=== PATIENT | female | born 1990 | race African-American/Black ===

== ENCOUNTER 2018-10-04 10:49 | Emergency (ER) | payer SELFPAY ==
--- OUTSIDE RECORDS SUMMARY | 2018-10-04 10:55 | XMS REPORT | Continuity of Care Document ---
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, third trimester HTN (<span Active Problem 12/04/2016 [facility] ID="[id number] [place] ">Confirmed</spa n>) Chronic Active Problem 12/04/2016 [place] hypertension [place] Multiple Active Problem 12/04/2016 [place] Obesity Active Problem 12/04/2016 [place] Medications Medication Details Route Status Patient Ordering Order Source Instructions Provider Date Ibuprofen 800 mg, Route: Inactive PO, Drug form: 2017 [place] TAB, TID, Dosing [place] Weight 104.545, kg, Start date: 11/30/16 17:00:00 CDT, Duration: 30 day, Stop date: 12/30/16 13:00:00 CDT Ibuprofen 800 mg, 2 tab, Inactive Route: PO, Drug 2017 [facility] form: TAB, ONCE, [place] Dosing Weight 104.545, kg, Start date: 11/30/16 16:23:00 CDT, Stop date: 11/30/16 16:23:00 CDTNotes: (Same as: Motrin) "Do Not Crush" Give with food. labetalol 100 mg 100 mg=1 tab, Active oral tablet PO, BID, 0 2016 [place] Refill(s) [place] Acetaminophen 325 1 tab, PO, Q4H, Active MG / Hydrocodone PRN Pain Score 2017 [facility] Bitartrate 10 MG 7-10, 0 [place] Oral Tablet Refill(s) Docusate Sodium 100 mg=1 cap, Active 100 MG Oral PO, BID, PRN 2017 [place] Capsule Constipation, # Land 60 cap, 2 Refill(s) acetaminophen 325 325 mg=1 tab, Active mg oral tablet PO, Q6H, PRN 2017 [place] Pain Score 1-5, Land 0 Refill(s) Benadryl 25 mg, 1 cap, No Longer Route: PO, Drug Active 2016 [facility] form: CAP, TID, [place] Dosing Weight 104.545, kg, PRN Itching, Start date: 11/29/16 18:50:00 CDT, Duration: 30 day, Stop date: 12/29/16 18:49:00 CDTNotes: (Same as: Benadryl) 1 tab, Route: No Longer Multivitamins oral PO, Drug Form: Active 2016 [place] tablet TAB, Dosing [place] Weight 104.545, kg, Daily, Start date: 11/29/16 9:00:00 CDT, Duration: 30 day, Stop date: 12/28/16 9:00:00 CDT Saline Flush 0.9% 10 ml, Route: No Longer IVP, Drug Form: Active 2016 [place] INJ, Dosing [place] Weight 104.545, kg, Q12H, Start date: 11/28/16 21:00:00 CDT, Duration: 30 day, Stop date: 12/28/16 9:00:00 CDTNotes: (Same as: BD Posiflush) Morphine 2 mg, 0.5 mL, No Longer Route: IVP, Drug Active 2016 [facility] form: SOLN, Q4H, [place] Dosing Weight 104.545, kg, PRN Pain Score 7-10, Start date: 11/28/16 17:25:00 CDT, Stop date: 12/28/16 17:24:00 CDTNotes: (Same as:MORPhine Sulfate) Ibuprofen 600 mg, 1 tab, No Longer Route: PO, Drug Active 2016 [place] form: TAB, Q6H, [place] Dosing Weight 104.545, kg, Start date: 11/28/16 12:00:00 CDT, Duration: 30 day, Stop date: 12/28/16 6:00:00 CDTNotes: (Same as: Motrin) "Do Not Crush" Take with food. 0.5 ML Bordetella 0.5 mL, Route: No Longer pertussis IM, Drug Form: Active 2016 [place] filamentous SUSP, Dosing [place] hemagglutinin Weight 104.545, vaccine, kg, ONCALL, inactivated 0.01 Start date: MG/ML / Bordetella 11/28/16 pertussis fimbriae 10:00:00 CDT, 2/3 vaccine, Duration: 1 inactivated 0.01 doses or MG/ML / Bordetella timesNotes: pertussis (Tdap ) For pertactin vaccine, Adolecent and inactivated 0.006 Adult use For IM MG/ML / Bordetella Use. Same as: pertussis toxoid Adacel (Tdap) vacci M-M-R II 0.5 mL, Route: No Longer SUB-Q, Drug Active 2016 [place] Form: PDR/INJ, [place] Dosing Weight 104.545, kg, ONCALL, Start date: 11/28/16 10:00:00 CDT, Duration: 1 doses or timesNotes: (Same as: M-M-R II) ([id number] ubella virus vaccine 0.5 ml INJ VL) WASTE: F/P - Red; E -Red GIVE PRIOR TO DISCHARGE Naloxone 0.4 mg, 1 mL, No Longer Route: IVP, Drug Active 2016 [place] form: INJ, Land ONCALL, Dosing Weight 104.545, kg, Start date: 11/28/16 10:00:00 CDT, Duration: 24 hr, Stop date: 11/29/16 9:59:00 CDTNotes: Same as Narcan Oxycodone 10 mg, 2 tab, No Longer Hydrochloride 5 MG Route: PO, Drug Active 2016 [place] Oral Tablet form: TAB, Q4H, Land Dosing Weight 104.545, kg, PRN Pain Score 7-10, Start date: 11/28/16 9:30:00 CDT, Duration: 30 day, Stop date: 12/28/16 9:29:00 CDTNotes: (Same as: Roxicodone) Ketorolac 30 mg, 1 mL, No Longer Route: IVP, Drug Active 2016 [place] form: INJ, Q6H, [place] Dosing Weight 104.545, kg, PRN Pain Score 4-6, Start date: 11/28/16 9:30:00 CDT, Duration: 24 hr, Stop date: 11/29/16 9:29:00 CDTNotes: (Same as:Toradol) IV bolus must be given >15 seconds. Give IM administration slowly and deeply into the muscle. Not for use > 4 days MEDICATION WASTE Product Size: 30 mg Product Wasted: ___ mg Nalbuphine 2 mg, 0.2 mL, No Longer Route: IVP, Drug Active 2016 [place] form: INJ, Q2H, [place] Dosing Weight 104.545, kg, PRN Itching, Start date: 11/28/16 9:30:00 CDT, Duration: 5 doses or times, Stop date: Limited # of timesNotes: (Same As: Nubain) Naloxone 0.1 mg, 0.25 mL, No Longer Route: SUB-Q, Active 2016 [place] Drug form: INJ, [place] Q6H, Dosing Weight 104.545, kg, PRN Itching, Start date: 11/28/16 9:30:00 CDT, Duration: 24 hr, Stop date: 11/29/16 9:29:00 CDTNotes: Same as Narcan Sodium Chloride 1,000 mL, Rate: No Longer 0.154 MEQ/ML 17 microgram/hr, Active 2016 [place] Injectable Route: IV, [place] Solution Dosing Weight 104.545 kg, Total Volume: 1,001 mL, PRN itching, Start date: 11/28/16 9:30:00 CDT, Duration: 30 day, Stop date: 12/28/16 9:29:00 CDTNotes: Same as Narcan Diphenhydramine 12.5 mg, 5 mL, No Longer Route: PO, Drug Active 2016 [place] form: LIQ, Q6H, Land Dosing Weight 104.545, kg, PRN Itching, Start date: 11/28/16 9:30:00 CDT, Duration: 30 day, Stop date: 12/28/16 9:29:00 CDTNotes: (Same as: Benadryl) Ondansetron 4 mg, 2 mL, No Longer Route: IVP, Drug Active 2017 [place] form: INJ, Q6H, [place] Dosing Weight 104.545, kg, PRN Nausea & Vomiting, Start date: 11/28/16 9:30:00 CDT, Duration: 24 hr, Stop date: 11/29/16 9:29:00 CDTNotes: (Same as: Zofran) MEDICATION WASTE Product Size: 4 mg Product Wasted: ___ mg Acetaminophen 325 1 tab, Route: No Longer MG / Hydrocodone PO, Drug Form: Active 2017 [facility] Bitartrate 5 MG TAB, Dosing [place] Oral Tablet Weight 104.545, kg, Q4H, PRN Pain Score 4-6, Start date: 11/28/16 9:11:00 CDT, Duration: 30 day, Stop date: 12/28/16 9:10:00 CDTNotes: (Same as: Purcell 325/5) Do not exceed 4gm/day of acetaminophen. Acetaminophen 325 1 tab, Route: No Longer MG / Hydrocodone PO, Drug Form: Active 2016 [place] Bitartrate 10 MG TAB, Dosing [place] Oral Tablet Weight 104.545, kg, Q4H, PRN Pain Score 7-10, Start date: 11/28/16 9:11:00 CDT, Duration: 30 day, Stop date: 12/28/16 9:10:00 CDTNotes: Do not exceed 4gm/day of acetaminophen. (Same as: Purcell 325/10) Saline Flush 0.9% 10 ml, Route: No Longer IVP, Drug Form: Active 2016 [place] INJ, Dosing [place] Weight 104.545, kg, PRN, PRN Line Flush, Start date: 11/28/16 9:11:00 CDT, Duration: 30 day, Stop date: 12/28/16 9:10:00 CDTNotes: (Same as: BD Posiflush) lanolin topical 1 appl, Route: No Longer cream TOP, PRN, Drug Active 2016 [place] form: OINT, PRN [place] Other -See Comment, Start date: 11/28/16 9:11:00 CDT, Duration: 30 day, Stop date: 12/28/16 9:10:00 CDTNotes: (Same as:Lanolin) Simethicone 160 mg, 2 tab, No Longer Route: PO, Drug Active 2016 [place] form: [place], [place] Q8H, Dosing Weight 104.545, kg, PRN Gas, Start date: 11/28/16 9:11:00 CDT, Duration: 30 day, Stop date: 12/28/16 9:10:00 CDTNotes: (Same as: Mylicon) Acetaminophen 650 mg, 2 tab, No Longer Route: PO, Drug Active 2016 [place] form: TAB, Q4H, [place] Dosing Weight 104.545, kg, PRN Other -See Comment, Start date: 11/28/16 9:11:00 CDT, Duration: 30 day, Stop date: 12/28/16 9:10:00 CDTNotes: Do not exceed 4 gm/day. (Same as: Tylenol) zolpidem 5 mg, 1 tab, No Longer Route: PO, Drug Active 2016 [place] form: TAB, Land Bedtime, Dosing Weight 104.545, kg, PRN Insomnia, Start date: 11/28/16 9:11:00 CDT, Duration: 30 day, Stop date: 12/28/16 9:10:00 CDTNotes: (Same As: Pranavien) Oxytocin 30 unit, 500 mL, No Longer Rate: 42 ml/hr, Active 2016 [place] Infuse over: [place] 11.9 hr, Dosing Weight 104.545, kg, Route: IV, Total Volume: 500 mL, Start date: 11/28/16 9:11:00 CDT, Duration: 2 day, Stop date: 11/30/16 9:10:00 CDT, Replace Every: 11.9 hr Lactated Ringers 1,000 mL, Rate: No Longer 1,000 mL 100 ml/hr, Active 2016 [place] Infuse over: 10 [place] hr, Route: IV, Dosing Weight 104.545 kg, Total Volume: 1,000, Start date: 11/28/16 9:11:00 CDT, Duration: 30 day, Stop date: 12/28/16 9:10:00 CDT Bisacodyl 10 mg, 1 supp, No Longer Route: MD, Drug Active 2016 [place] form: SUPP, PRN, [facility] Dosing Weight 104.545, kg, PRN Other -See Comment, Start date: 11/28/16 9:11:00 CDT, Duration: 30 day, Stop date: 12/28/16 9:10:00 CDTNotes: (Same As: Dulcolax, Bisco-Lax) Docusate 100 mg, 1 cap, No Longer Route: PO, Drug Active 2016 [place] form: CAP, BID, [place] Dosing Weight 104.545, kg, PRN Constipation, Start date: 11/28/16 9:11:00 CDT, Duration: 30 day, Stop date: 12/28/16 9:10:00 CDTNotes: (Same as: Colace) (Do Not Crush) ondansetron (ANES) Route: IV, Drug Inactive form: INJ, ONCE, 2016 [place] Stop date: 11/28/16 9:09:00 CDT morphine Sulfate Route: Inactive (ANES) INTRATHECAL, 2016 [place] Drug form: INJ, [place] ONCE, Stop date: 11/28/16 9:09:00 CDT clindamycin (ANES) Route: IV, Drug Inactive form: INJ, ONCE, 2016 [place] Stop date: 11/28/16 9:09:00 CDT bupivacaine (ANES) Route: Inactive INTRATHECAL, 2016 [place] Drug Form: INJ, [place] ONCE, Stop date: 11/28/16 9:09:00 CDT fentaNYL (ANES) Route: Inactive INTRATHECAL, 2016 [place] Drug form: INJ, [place] ONCE, Stop date: 11/28/16 9:09:00 CDT gentamicin (ANES) Route: IV, Drug Inactive form: INJ, ONCE, 2016 [place] Stop date: 11/28/16 9:09:00 CDT oxytocin (ANES) Route: IV, Drug Inactive (ANES) form: SOLN, 2016 [place] Start date: [facility] 11/28/16 8:30:00 CDT, Stop date: 11/28/16 9:30:00 CDT LR 1000 mL INJ Route: IV, Total Inactive (ANES) Volume: 1,000, 2017 [place] Start date: [place] 11/28/16 7:53:00 CDT, Stop date: 11/28/16 8:53:00 CDT Famotidine 20 mg, Route: Inactive IVP, ONCE, 2016 [place] Dosing Weight [place] 104.545, kg, Start date: 11/28/16 6:55:00 CDT, Duration: 1 doses or times, Stop date: 11/28/16 6:55:00 CDT Calcium Gluconate 1 gm, Route: No Longer IVP, Drug form: Active 2016 [place] INJ, ONCE, [facility] Dosing Weight 104.545, kg, PRN Other -See Comment, Start date: 11/27/16 14:14:00 CDTNotes: WASTE: F/P - Sink; E - Municipal Trash Bin Magnesium Sulfate 500 mL, Rate: 50 No Longer ml/hr, Infuse Active 2016 [place] over: 10 hr, [facility] Route: IV, Dosing Weight 104.545 kg, Total Volume: 500, Start date: 11/27/16 14:14:00 CDT, Duration: 30 day, Stop date: 12/27/16 14:13:00 CDTNotes: (Same as: MgSO4) WASTE: F/P - Sink; E - Municipal Trash Bin Gentamicin Sulfate 150 mg, 3.75 mL, No Longer (HALFWAY) Route: IVPB, Active 2016 [place] ONCALL, Dosing [place] Weight 74.638, kg, Start date: 11/27/16 14:00:00 CDT, Duration: 1 doses or timesNotes: TIME CRITICAL MEDICATION (Same as Garamycin) Clindamycin 900 mg, 50 mL, No Longer Route: IVPB, Active 2016 [place] Drug form: INJ, [place] ONCALL, Dosing Weight 104.545, kg, Start date: 11/27/16 14:00:00 CDT, Duration: 1 doses or times, Stop date: 11/28/16 14:00:00 CDT, ABX Indication: Surgical Prophylaxis Methylergonovine 0.2 mg, 1 mL, No Longer Route: IM, Drug Active 2016 [place] form: INJ, [place] ONCALL, Dosing Weight 104.545, kg, Start date: 11/27/16 14:00:00 CDT, Duration: 30 day, Stop date: 12/27/16 13:59:00 CDTNotes: (Same as:Methergine) Carboprost 250 microgram, 1 No Longer 07/ MH mL, Route: IM, Active 2016 [place] Drug form: INJ, [place] ONCALL, Dosing Weight 104.545, kg, Start date: 11/27/16 14:00:00 CDT, Duration: 30 day, Stop date: 12/27/16 13:59:00 CDTNotes: (Same As: Hemabate) Terbutaline 0.25 mg, 0.25 No Longer MH mL, Route: Active 2017 [place] SUB-Q, Drug [place] form: INJ, ONCALL, Dosing Weight 104.545, kg, PRN Other -See Comment, Start date: 11/27/16 14:00:00 CDT, Duration: 1 doses or times, Stop date: Limited # of timesNotes: DO NOT USE IN [employer] AREA (Same As: Brethine) Citric Acid / 30 mL, Route: No Longer sodium citrate PO, Drug Form: Active 2016 [place] SOLN, Dosing [place] Weight 104.545, kg, ONCE, Start date: 11/27/16 14:00:00 CDT, Duration: 1 doses or times, Stop date: 11/27/16 14:00:00 CDTNotes: (Same As: Bicitra) Misoprostol 1,000 microgram, No Longer MH 5 tab, Route: Active 2017 [place] MD, Drug form: [place] TAB, ONCALL, Dosing Weight 104.545, kg, Start date: 11/27/16 14:00:00 CDT, Duration: 30 day, Stop date: 12/27/16 13:59:00 CDTNotes: (Same as:Cytotec) Take with food Oxytocin 30 unit, 500 mL, No Longer 07 MH Rate: 42 ml/hr, Active 2017 [place] Infuse over: [place] 11.9 hr, Dosing Weight 104.545, kg, Route: IV, Total Volume: 500 mL, Start date: 11/27/16 14:00:00 CDT, Duration: 1 doses or times, Stop date: 11/28/16 1:53:00 CDT, Replace Every: 11.9 hr Ondansetron 4 mg, 2 mL, No Longer Route: IVP, Drug Active 2016 [place] form: INJ, Q8H, [place] Dosing Weight 104.545, kg, PRN Nausea & Vomiting, Start date: 11/27/16 14:00:00 CDT, Duration: 30 day, Stop date: 12/27/16 13:59:00 CDTNotes: (Same as: Carmencita) MEDICATION WASTE Product Size: 4 mg Product Wasted: ___ mg Morphine 2 mg, 0.5 mL, No Longer Route: IVP, Drug Active 2016 [place] form: SOLN, Q2H, [place] Dosing Weight 104.545, kg, PRN Pain Score 7-10, Start date: 11/27/16 14:00:00 CDT, Duration: 30 day, Stop date: 12/27/16 13:59:00 CDTNotes: (Same as:MORPhine Sulfate) Metoclopramide 10 mg, 2 mL, No Longer Route: IVP, Drug Active 2016 [place] form: INJ, Q6H, [place] Dosing Weight 104.545, kg, PRN Nausea & Vomiting, Start date: 11/27/16 14:00:00 CDT, Duration: 30 day, Stop date: 12/27/16 13:59:00 CDTNotes: (Same as: Reglan) Calcium Chloride 1,000 mL, 1,000 No Longer 0.0014 MEQ/ML / ml/hr, Infuse Active 2016 [place] Potassium Chloride Over: 1 hr, [place] 0.004 MEQ/ML / Route: IV, Sodium Chloride 1,000, Drug 0.103 MEQ/ML / form: INJ, ONCE, Sodium Lactate Dosing Weight 0.028 MEQ/ML 104.545 kg, Injectable Start date: Solution 11/27/16 14:00:00 CDT, Stop date: 11/27/16 14:00:00 CDT Stadol 2 mg, 1 mL, No Longer Route: IVP, Drug Active 2016 [place] form: INJ, Q4H, [place] Dosing Weight 104.545, kg, PRN Pain Score 6-10, Start date: 11/27/16 3:52:00 CDT, Duration: 30 day, Stop date: 12/27/16 3:51:00 CDTNotes: (Same As: Stadol) MEDICATION WASTE Product Size: 2 mg Product Wasted: ___ mg Clindamycin 900 mg, 50 mL, No Longer Route: IVPB, Active 2016 [place] Drug form: INJ, [place] [id number], Dosing Weight 104.545, kg, Start date: 11/26/16 23:00:00 CDT, Duration: 3 day, Stop date: 11/29/16 15:00:00 CDT, GBS unknown, ABX Indication: Other (specify in Comments) Stadol 2 mg, 1 mL, Inactive Route: IV, Drug 2016 [place] form: INJ, ONCE, [place] Dosing Weight 104.545, kg, Start date: 11/26/16 22:48:00 CDT, Stop date: 11/26/16 22:48:00 CDTNotes: (Same As: Stadol) MEDICATION WASTE Product Size: 2 mg Product Wasted: ___ mg Phenergan 25 mg, 1 tab, No Longer Route: PO, Drug Active 2016 [place] form: TAB, Q4H, [place] Dosing Weight 104.545, kg, PRN Nausea & Vomiting, Priority: NOW, Start date: 11/26/16 19:06:00 CDT, Duration: 30 day, Stop date: 12/26/16 19:05:00 CDTNotes: (Same as: Phenergan) Labetalol 100 mg, 1 tab, No Longer Route: PO, Drug Active 2016 [place] form: TAB, BID, [place] Dosing Weight 104.545, kg, Start date: 11/26/16 17:00:00 CDT, Stop date: 12/26/16 9:00:00 CDTNotes: With food. (Same as:Trandate, Normodyne) betamethasone 12 mg, 2 mL, No Longer Route: IM, Drug Active 2016 [place] form: INJ, Q24H, [place] Dosing Weight 104.545, kg, Start date: 11/26/16 15:00:00 CDT, Duration: 2 doses or times, Stop date: 11/27/16 15:00:00 CDTNotes: (betamethasone acetate-sodium phosphate 6 mg/ml INJ) (Same As: Celestone Soluspan) Tylenol 650 mg, 2 tab, No Longer Route: PO, Drug Active 2016 [place] form: TAB, Q6H, [place] Dosing Weight 104.545, kg, PRN Pain Score 1-5, Start date: 11/26/16 14:50:00 CDT, Duration: 30 day, Stop date: 12/26/16 14:49:00 CDTNotes: Do not exceed 4 gm/day. (Same as: Tylenol) Zofran 4 mg, 2 mL, No Longer Route: IVP, Drug Active 2016 [place] form: INJ, Q8H, [place] Dosing Weight 104.545, kg, PRN Nausea, Start date: 11/26/16 14:49:00 CDT, Duration: 30 day, Stop date: 12/26/16 14:48:00 CDTNotes: (Same as: Zofran) MEDICATION WASTE Product Size: 4 mg Product Wasted: ___ mg Lactated Ringers 1,000 mL, Rate: No Longer 1,000 mL Titrate, Dosing Active 2016 [place] Weight 104.545, [place] kg, Route: IV, Total Volume: 1,000, Start Date: 11/26/16 14:48:00 CDT, Duration: 30 day, Stop date: 12/26/16 14:47:00 CDT, Replace Every: 24 hr Calcium Gluconate 1 gm, Route: No Longer IVP, Drug form: Active 2017 [place] INJ, ONCE, [place] Dosing Weight 104.545, kg, PRN Other -See Comment, Start date: 11/26/16 14:48:00 CDTNotes: WASTE: F/P - Sink; E - Municipal Trash Bin magnesium sulfate 4 gm, 100 mL, Inactive 4 gm / 100 mL Route: IVPB, 2017 [place] solution Drug form: INJ, [place] ONCE, Dosing Weight 104.545, kg, Loading dose; Dilute in 100 ml; Infuse over 30 minutes @ 200 ml/hr, Start date: 11/26/16 14:48:00 CDT, Duration: 1 doses or times, Stop date: 11/26/16 14:48:00 CDTNotes: WASTE: F/P - Sink; E - Municipal Trash Bin Magnesium Sulfate 500 mL, Rate: 50 No Longer ml/hr, Infuse Active 2016 [place] over: 10 hr, [place] Route: IV, Dosing Weight 104.545 kg, Total Volume: 500, Start date: 11/26/16 14:48:00 CDT, Duration: 30 day, Stop date: 12/26/16 14:47:00 CDTNotes: (Same as: MgSO4) WASTE: F/P - Sink; E - Municipal Trash Bin Calcium Chloride 1,000 mL, Rate: No Longer 0.0014 MEQ/ML / 125 ml/hr, Active 2016 [place] Potassium Chloride Infuse over: 8 [place] 0.004 MEQ/ML / hr, Route: IV, Sodium Chloride Dosing Weight 0.103 MEQ/ML / 104.545 kg, Sodium Lactate Total Volume: 0.028 MEQ/ML 1,000, Start Injectable date: 11/26/16 Solution 13:23:00 CDT, Duration: 30 day, Stop date: 12/26/16 13:22:00 CDT Tylenol PO, 0 Refill(s) No Longer Active 2016 [place] Calcium Chloride 1,000 mL, Rate: Inactive 0.0014 MEQ/ML / 125 ml/hr, 2017 [place] Potassium Chloride Infuse over: 8 [place] 0.004 MEQ/ML / hr, Route: IV, Sodium Chloride Dosing Weight 0.103 MEQ/ML / 99.545 kg, Total Sodium Lactate Volume: 1,000, 0.028 MEQ/ML Start date: Injectable 10/06/16 2:45:00 Solution CDT, Duration: 30 day, Stop date: 11/05/16 2:44:00 CDT Zofran 4 mg, 2 mL, Inactive Route: IVP, Drug 2016 [place] form: INJ, ONCE, [place] Dosing Weight 99.545, kg, Start date: 10/06/16 2:44:00 CDT, Stop date: 10/06/16 2:44:00 CDTNotes: (Same as: Carmencita) MEDICATION WASTE Product Size: 4 mg Product Wasted: ___ mg Allergies, Adverse Reactions, Alerts Substance Category Reaction Severity Reaction Status Date Comments Source type Reported amoxicillin Assertion Drug Active MH allergy [place] ibuprofen Assertion Itching Mild Drug Active allergy [place] Immunizations Immunization Date Given Site Status Last Updated Comments Source Results Order Name Results Value Reference Date Interpretation Comments Source Range CHEM PANEL Magnesium Lvl 3.8 mg/dL 1.8 - 2.4 11/29 Result Comment: [place] Critical [facility] Result(s) called to Jeffery SOLIS at 11/29/2016 07:13 by TROY. Read back OK. HEMATOLOGY Hct 23.9 % 36.0 - 11/29 MH 48.0 [place] HEMATOLOGY Hgb 7.4 g/dL 12.0 - 11/29 MH 16.0 [place] CHEM PANEL Mg Therap 4.1 mg/dL 4.5 - 7.5 11/29 MH (LD) [place] CHEM PANEL Magnesium Lvl 5.0 mg/dL 1.8 - 2.4 11/28 Result Comment: [place] Critical [facility] Result(s) called to Carmen Jimenez RN at 11/28/2016 14:52 by_LD. Read back OK. CHEM PANEL Mg Therap 4.8 mg/dL 4.5 - 7.5 11/28 MH (LD) [place] IMMUNOLOGY HIV. Negative Negative 11/28 /2016 [place] *NA* [place] (11/27/16 11:54 PM) IMMUNOLOGY Treponemal Non Reactive Non 11/28 MH Scr Reactive /2016 [place] *NA* [place] (11/27/16 11:54 PM) BLOOD BANK Antibody Scrn Negative 11/27 RESULTS /2016 [place] (11/27/16 3:39 PM) Land BLOOD BANK ABO/Rh B POS 11/27 RESULTS /2016 [place] IMMUNOLOGY Treponemal Non Reactive Non 11/27 MH Scr Reactive /2016 [place] *NA* [place] (11/27/16 3:39 PM) IMMUNOLOGY Hep Bs Ag Negative Negative 11/27 /2016 [place] *NA* [place] (11/27/16 3:39 PM) URINE CHEM U Creatinine 179.00 11/27 MH mg/dL /2016 [place] URINE CHEM U Prot/Creat 0.3 11/27 [place] URINE CHEM U Protein 53.9 mg/dL 11/27 [place] CHEM PANEL Magnesium Lvl 5.0 mg/dL 1.8 - 2.4 11/27 Result Comment: [place] Critical [place] Result(s) called to lindsay montes de oca RN at 11/27/2016 07:24 by HF. Read back OK. CHEM PANEL Alk Phos 92 unit/L 39 - 136 11/27 [place] CHEM PANEL AST 15 unit/L 0 - 37 11/27 [place] CHEM PANEL Bili Total 0.4 mg/dL 0.2 - 1.3 11/27 [place] CHEM PANEL A/G Ratio 0.5 0.7 - 1.6 11/27 [place] CHEM PANEL ALT 14 unit/L 0 - 65 11/27 [place] CHEM PANEL eGFR 142 11/27 Result Comment: The eGFR is calculated using the CKD-EPI formula. In most young, healthy individuals the eGFR will be >90 mL/ min/1.73m2. The eGFR declines with age. An eGFR of 60-89 may be normal in mL/min/1.73 some populations, particularly the elderly, for whom the CKD-EPI formula has not been extensively validated. Use of the eGFR is not recommended in the following populations: [place] m2 [place] Individuals with unstable creatinine concentrations, including patients and those with serious co-morbid conditions. Patients with extremes in muscle mass or diet. The data above are obtained from the National Kidney Disease Education Program (NKDEP) which additionally recommends that when the eGFR is used in patients with extremes of body mass index for purposes of drug dosing, the eGFR should be multiplied by the estimated BMI. CHEM PANEL Total Protein 7.2 g/dL 6.4 - 8.4 11/27 [place] CHEM PANEL Albumin Lvl 2.5 g/dL 3.5 - 5.0 11/27 [place] CHEM PANEL Globulin 4.7 g/dL 2.7 - 4.2 11/27 [place] CHEM PANEL Calcium Lvl 8.1 mg/dL 8.5 - 10.5 11/27 [place] CHEM PANEL B/C Ratio 12 6 - 25 11/27 [place] CHEM PANEL AGAP 13.0 meq/L 10.0 - 07 MH 20.0 [place] CHEM PANEL Chloride Lvl 105 meq/L 95 - 109 11/27 [place] CHEM PANEL CO2 22 meq/L 24 - 32 07/ [place] CHEM PANEL Potassium Lvl 4.0 meq/L 3.5 - 5.1 / [place] CHEM PANEL Creatinine 0.65 mg/dL 0.50 - 07 MH Lvl 1.40 /2016 [place] CHEM PANEL Sodium Lvl 136 meq/L 135 - 145 07/ [place] CHEM PANEL Glucose Lvl 129 mg/dL 70 - 99 11/27 [place] CHEM PANEL BUN 8 mg/dL 7 - 22 11/27 [place] HEMATOLOGY MPV 11.4 fL 7.4 - 10.4 11/27 [place] HEMATOLOGY MCH 21.9 pg 27.0 - 11/27 MH 31.0 [place] HEMATOLOGY Platelet 285 K/CMM 133 - 450 11/27 [place] HEMATOLOGY RDW 17.9 % 11.5 - 07 MH 14.5 /2016 [place] HEMATOLOGY MCHC 31.2 g/dL 32.0 - 07 MH 36.0 [place] HEMATOLOGY WBC 7.2 K/CMM 3.7 - 10.4 11/27 [place] HEMATOLOGY MCV 70.1 fL 80.0 - 11/27 MH 98.0 /2016 [place] HEMATOLOGY Hct 31.2 % 36.0 - 11/27 MH 48.0 [place] HEMATOLOGY Hgb 9.7 g/dL 12.0 - 11/27 MH 16.0 [place] HEMATOLOGY RBC 4.45 M/CMM 4.20 - 07 MH 5.40 /2016 [place] HEMATOLOGY PTT 29.2 s 22.9 - 11/27 MH 35.8 /2016 [place] HEMATOLOGY INR 1.14 0.85 - 11/27 MH 1.17 [place] [facility]AT[facility] PT 14.8 s 12.0 - 11/27 MH 14.7 [place] [facility]EMAT[facility] Basophils # 0.0 K/CMM 0.0 - 0.2 11/27 [place] [facility]EMAT[facility] Eosinophils # 0.0 K/CMM 0.0 - 0.5 11/27 [place] [facility]EMAT[facility] Monocytes # 0.2 K/CMM 0.0 - 0.8 11/27 [place] [facility]EMAT[facility] Lymphocytes # 0.8 K/CMM 1.0 - 5.5 11/27 [place] HEMAT[facility] Segs-Bands # 6.2 K/CMM 1.5 - 8.1 11/27 [place] [facility]EMAT[facility] Basophils 0.2 % 0.0 - 1.0 11/27 [place] [facility]EMAT[facility] Lymphocytes 10.7 % 20.0 - 11/27 MH 40.0 [place] HEMAT[facility] Segs 86.0 % 45.0 - 11/27 MH 75.0 [place] HEMATOLOG[facility] Monocytes 3.1 % 2.0 - 12.0 11/27 [place] HEMATOLOG[facility] Eosinophils 0.0 % 0.0 - 4.0 11/27 [place] CHEM PANEL Mg Therap 4.4 mg/dL 4.5 - 7.5 11/27 (LD) [place] CHEM PANEL eGFR 148 11/26 Result Comment: The eGFR is calculated using the CKD-EPI formula. In most young, healthy individuals the eGFR will be >90 mL/ min/1.73m2. The eGFR declines with age. An eGFR of 60-89 may be normal in mL/min/1.73 some populations, particularly the elderly, for whom the CKD-EPI formula has not been extensively validated. Use of the eGFR is not recommended in the following populations: [place] Individuals with unstable creatinine concentrations, including patients and those with serious co-morbid conditions. Patients with extremes in muscle mass or diet. The data above are obtained from the National Kid[employer] Disease Education Program (NKDEP) which additionally recommends that when the eGFR is used in patients with extremes of body mass index for purposes of drug dosing, the eGFR should be multiplied by the estimated BMI. CHEM PANEL ALT 14 unit/L 0 - 65 11/26 [place] CHEM PANEL AST 15 unit/L 0 - 37 11/26 [place] CHEM PANEL Albumin Lvl 2.5 g/dL 3.5 - 5.0 11/26 [place] CHEM PANEL Bili Total 0.4 mg/dL 0.2 - 1.3 11/26 [place] CHEM PANEL Alk Phos 90 unit/L 39 - 136 11/26 [place] CHEM PANEL Potassium Lvl 3.7 meq/L 3.5 - 5.1 11/26 [place] CHEM PANEL Glucose Lvl 74 mg/dL 70 - 99 11/26 [place] CHEM PANEL Total Protein 7.1 g/dL 6.4 - 8.4 11/26 [place] CHEM PANEL Calcium Lvl 8.5 mg/dL 8.5 - 10.5 11/26 [place] CHEM PANEL CO2 24 meq/L 24 - 32 11/26 [place] CHEM PANEL Chloride Lvl 108 meq/L 95 - 109 11/26 [place] CHEM PANEL BUN 6 mg/dL 7 - 22 11/26 [place] CHEM PANEL Creatinine 0.57 mg/dL 0.50 - 11/26 MH Lvl 1.40 [place] CHEM PANEL Sodium Lvl 139 meq/L 135 - 145 11/26 [place] CHEM PANEL A/G Ratio 0.5 0.7 - 1.6 11/26 [place] CHEM PANEL Globulin 4.6 g/dL 2.7 - 4.2 11/26 [place] CHEM PANEL AGAP 10.7 meq/L 10.0 - 11/26 MH 20.0 [place] CHEM PANEL B/C Ratio 11 6 - 25 11/26 [place] HEMATOLOGY Basophils 0.3 % 0.0 - 1.0 11/26 [place] HEMATOLOGY Eosinophils 1.2 % 0.0 - 4.0 11/26 [place] HEMATOLOGY Lymphocytes # 1.1 K/CMM 1.0 - 5.5 11/26 [place] HEMATOLOGY Segs-Bands # 5.4 K/CMM 1.5 - 8.1 11/26 [place] HEMATOLOGY Large Plt slight 11/26 [place] HEMATOLOGY Hypochrom 1+ None Seen 11/26 [place] (11/26/16 1:32 PM) [place] HEMATOLOGY Microcyte 2+ None Seen 11/26 [place] *ABN* [place] (11/26/16 1:32 PM) HEMATOLOGY Eosinophils # 0.1 K/CMM 0.0 - 0.5 11/26 [place] HEMATOLOGY Basophils # 0.0 K/CMM 0.0 - 0.2 11/26 /2016 [place] HEMATOLOGY Monocytes # 0.5 K/CMM 0.0 - 0.8 11/26 /2016 [place] HEMATOLOGY Lymphocytes 16.1 % 20.0 - 11/26 MH 40.0 /2016 [place] HEMATOLOGY Monocytes 6.5 % 2.0 - 12.0 11/26 /2016 [place] HEMATOLOGY Segs 75.9 % 45.0 - 11/26 MH 75.0 /2016 [place] HEMATOLOGY PTT 30.1 s 22.9 - 11/26 MH 35.8 /2016 [place] HEMATOLOGY PT 14.5 s 12.0 - 11/26 MH 14.7 /2016 [place] HEMATOLOGY INR 1.11 0.85 - 11/26 MH 1.17 /2016 [place] HEMATOLOGY MPV 11.3 fL 7.4 - 10.4 11/26 [place] HEMATOLOGY MCV 70.0 fL 80.0 - 11/26 MH 98.0 /2016 [place] HEMATOLOGY Platelet 257 K/CMM 133 - 450 11/26 [place] HEMATOLOGY MCH 22.1 pg 27.0 - 11/26 MH 31.0 /2016 [place] HEMATOLOGY RDW 18.1 % 11.5 - 11/26 MH 14.5 /2016 [place] HEMATOLOGY MCHC 31.6 g/dL 32.0 - 11/26 MH 36.0 /2016 [place] HEMATOLOGY Hct 31.6 % 36.0 - 11/26 MH 48.0 /2016 [place] HEMATOLOGY Hgb 10.0 g/dL 12.0 - 11/26 MH 16.0 [place] HEMATOLOGY RBC 4.51 M/CMM 4.20 - 11/26 MH 5.40 /2016 [place] HEMATOLOGY WBC 7.1 K/CMM 3.7 - 10.4 11/26 [place] URINE AND UA <=1.0 mg/dL 0.1 - 1.0 11/26 [facility] Urobilinogen /2016 [place] URINE AND UA Spec Grav 1.020 <=1.030 11/26 [facility] [place] URINE AND UA RBC null 0 - 2 11/26 [facility] /2017 [place] URINE AND UA Bacteria Occasional None Seen 11/26 [facility] /HPF /HPF /2016 [place] URINE AND UA Mucus Few /LPF None Seen 11/26 [facility] /LPF /2016 [place] URINE AND UA Leuk Est Trace Negative 11/26 [place] *ABN* [place] (11/26/16 1:03 PM) URINE AND UA WBC 4 /HPF 0 - 5 11/26 [place] URINE AND UA Sq Epi Moderate Few /LPF 11/26 [facility] /LPF /2016 [place] URINE AND UA Nitrite Negative Negative 11/26 [place] (11/26/16 1:03 PM) [place] URINE AND UA Blood Negative Negative 11/26 [place] (11/26/16 1:03 PM) [place] URINE AND UA Bili Negative Negative 11/26 [place] *NA* [place] (11/26/16 1:03 PM) URINE AND UA Glucose Negative Negative 11/26 [facility] mg/dL mg/dL [place] URINE AND UA Color Yellow Yellow 11/26 [place] *NA* [facility] (11/26/16 1:03 PM) URINE AND UA Turbidity Slight Clear 11/26 [place] *ABN* [facility] (11/26/16 1:03 PM) URINE AND UA Protein Negative Negative 11/26 [facility] mg/dL mg/dL [place] URINE AND UA pH 6.0 5.0 - 8.0 11/26 [place] URINE AND UA Ketones Negative Negative 11/26 [facility] mg/dL mg/dL [place] Chest 1view Chest 1view Single view chest 11/26 DX DX - [place] Clinical history: - 33 weeks , SOB x 2 weeks. Read by: Ciaran Starks MD Dictated Date/time: 11/26/16 14:19 Electronically Signed by: Ciaran Starks MD 11/26/16 14:20 FINAL REPORT : 1990. Technique: Portable AP chest x-ray. Comparison: None. Findings: Support tubings: None. Heart size: Normal. Lungs: No acute consolidation. Pleura: No pleural effusion. Musculoskeletal: No acute abnormality. . Partially visualized gravid uterus. Impression: 1. No active disease in the chest. CHEM PANEL Uric Acid 3.1 mg/dL 2.5 - 7.0 11/11 [place] CHEM PANEL LDH 152 unit/L 98 - 192 11/11 [place] ELECTROLYTE AGAP 11.4 meq/L 10.0 - 11/11 S 20.0 [place] ELECTROLYTE B/C Ratio 13 6 - 25 11/11 [place] ELECTROLYTE Globulin 4.7 g/dL 2.7 - 4.2 11/11 [place] ELECTROLYTE A/G Ratio 0.6 0.7 - 1.6 11/11 [place] ELECTROLYTE eGFR 152 11/11 Result Comment: The eGFR is calculated using the CKD-EPI formula. In most young, healthy individuals the eGFR will be > 90 mL/min/1.73m2. The eGFR declines with age. An eGFR of 60-89 may be normal in mL/min/1.73 /2016 some populations, particularly the elderly, for whom the CKD-EPI formula has not been extensively validated. Use of the eGFR is not recommended in the following populations: [place] m2 [place] Individuals with unstable creatinine concentrations, including patients and those with serious co-morbid conditions. Patients with extremes in muscle mass or diet. The data above are obtained from the National Kidney Disease Education Program (NKDEP) which additionally recommends that when the eGFR is used in patients with extremes of body mass index for purposes of drug dosing, the eGFR should be multiplied by the estimated BMI. ELECTROLYTE BUN 7 mg/dL 7 - 22 11/11 [place] ELECTROLYTE Glucose Lvl 81 mg/dL 70 - 99 11/11 [place] ELECTROLYTE Sodium Lvl 137 meq/L 135 - 145 11/11 [place] ELECTROLYTE Creatinine 0.52 mg/dL 0.50 - 11/11 S Lvl 1.40 [place] ELECTROLYTE Chloride Lvl 106 meq/L 95 - 109 11/11 [place] ELECTROLYTE Potassium Lvl 3.4 meq/L 3.5 - 5.1 11/11 [place] ELECTROLYTE CO2 23 meq/L 24 - 32 11/11 S [place] ELECTROLYTE Alk Phos 78 unit/L 39 - 136 11/11 [place] ELECTROLYTE AST 14 unit/L 0 - 37 11/11 [place] ELECTROLYTE Bili Total 0.4 mg/dL 0.2 - 1.3 11/11 [place] ELECTROLYTE Total Protein 7.4 g/dL 6.4 - 8.4 11/11 [place] ELECTROLYTE Calcium Lvl 8.7 mg/dL 8.5 - 10.5 11/11 S [place] ELECTROLYTE ALT 13 unit/L 0 - 65 11/11 [place] ELECTROLYTE Albumin Lvl 2.7 g/dL 3.5 - 5.0 11/11 [place] HEMATOLOGY Basophils # 0.0 K/CMM 0.0 - 0.2 11/11 [place] HEMATOLOGY Segs 74.8 % 45.0 - 11/11 MH 75.0 [place] HEMATOLOGY Lymphocytes 16.6 % 20.0 - 11/11 MH 40.0 [place] HEMATOLOGY Segs-Bands # 5.7 K/CMM 1.5 - 8.1 11/11 [place] HEMATOLOGY Eosinophils 1.0 % 0.0 - 4.0 11/11 [place] HEMATOLOGY Monocytes 7.4 % 2.0 - 12.0 11/11 [place] HEMATOLOGY Basophils 0.2 % 0.0 - 1.0 11/11 [place] HEMATOLOGY Monocytes # 0.6 K/CMM 0.0 - 0.8 11/11 [place] HEMATOLOGY Lymphocytes # 1.3 K/CMM 1.0 - 5.5 11/11 [place] HEMATOLOGY Eosinophils # 0.1 K/CMM 0.0 - 0.5 11/11 [place] HEMATOLOGY MCH 22.6 pg 27.0 - 11/11 31.0 [place] HEMATOLOGY Hct 31.3 % 36.0 - 11/11 48.0 [place] HEMATOLOGY MCV 71.1 fL 80.0 - 11/11 98.0 [place] HEMATOLOGY MCHC 31.8 g/dL 32.0 - 11/11 36.0 [place] HEMATOLOGY RDW 17.4 % 11.5 - 11/11 MH 14.5 [place] HEMATOLOGY Platelet 286 K/CMM 133 - 450 11/11 [place] HEMATOLOGY MPV 10.8 fL 7.4 - 10.4 11/11 [place] HEMATOLOGY WBC 7.7 K/CMM 3.7 - 10.4 11/11 [place] HEMATOLOGY Hgb 10.0 g/dL 12.0 - 11/11 16.0 [place] HEMATOLOGY RBC 4.40 M/CMM 4.20 - 11/11 MH 5.40 /2016 [place] URINE AND UA Spec Grav 1.012 <=1.030 11/11 [facility] [place] URINE AND UA <=1.0 mg/dL 0.1 - 1.0 11/11 [facility] Urobilinogen [place] URINE AND UA Bacteria Occasional None Seen 11/11 [facility] /HPF /HPF [place] URINE AND UA RBC 1 /HPF 0 - 2 11/11 [facility] [place] URINE AND UA WBC 3 /HPF 0 - 5 11/11 [facility] [place] URINE AND UA Mucus Few /LPF None Seen 11/11 [facility] /LPF [place] URINE AND UA Leuk Est Small Negative 11/11 [facility] [place] *[place]N* [place] (11/11/16 10:41 AM) URINE AND UA Sq Epi Few /LPF Few /LPF 11/11 [place] URINE AND UA Nitrite Negative Negative 11/11 [facility] [place] (11/11/16 10:41 AM) [place] URINE AND UA Blood Negative Negative 11/11 [facility] [place] (11/11/16 10:41 AM) [place] URINE AND UA pH 6.0 5.0 - 8.0 11/11 [facility] [place] URINE AND UA Turbidity Slight Clear 11/11 [place] *ABN* [place] (11/11/16 10:41 AM) URINE AND UA Color Light Yellow Yellow 11/11 [place] *NA* [place] (11/11/16 10:41 AM) URINE AND UA Protein Negative Negative 11/11 [facility] mg/dL mg/dL [place] URINE AND UA Bili Negative Negative 11/11 [facility] [place] *NA* [place] (11/11/16 10:41 AM) URINE AND UA Glucose Negative Negative 11/11 [facility] mg/dL mg/dL [place] URINE AND UA Ketones Negative Negative 11/11 [facility] mg/dL mg/dL [place] URINE CHEM U Prot/Creat 0.1 11/11 [place] URINE CHEM U Creatinine 123.00 11/11 mg/dL [place] URINE CHEM U Protein 14.3 mg/dL 11/11 [place] HEMATOLOGY PTT 31.9 s 22.9 - 10/06 MH 35.8 /2017 [place] HEMATOLOGY PT 14.9 s 12.0 - 10/06 MH 14.7 /2016 [place] HEMATOLOGY INR 1.15 0.85 - 10/06 MH 1.17 [place] CHEM PANEL LDH 151 unit/L 98 - 192 10/06 [place] CHEM PANEL Uric Acid 2.8 mg/dL 2.5 - 7.0 10/06 [place] CHEM PANEL eGFR 151 10/06 Result Comment: The eGFR is calculated using the CKD-EPI formula. In most young, healthy individuals the eGFR will be >90 mL/ min/1.73m2. The eGFR declines with age. An eGFR of 60-89 may be normal in MH mL/min/1.73 /2016 some populations, particularly the elderly, for whom the CKD-EPI formula has not been extensively validated. Use of the eGFR is not recommended in the following populations: [place] Individuals with unstable creatinine concentrations, including patients and those with serious co-morbid conditions. Patients with extremes in muscle mass or diet. The data above are obtained from the National Kidney Disease Education Program (NKDEP) which additionally recommends that when the eGFR is used in patients with extremes of body mass index for purposes of drug dosing, the eGFR should be multiplied by the estimated BMI. CHEM PANEL Glucose Lvl 83 mg/dL 70 - 99 10/06 [place] CHEM PANEL B/C Ratio 9 6 - 25 10/06 [place] CHEM PANEL AGAP 11.5 meq/L 10.0 - 10/06 MH 20.0 [place] CHEM PANEL CO2 24 meq/L 24 - 32 10/06 [place] CHEM PANEL Chloride Lvl 107 meq/L 95 - 109 10/06 [place] CHEM PANEL Sodium Lvl 139 meq/L 135 - 145 10/06 [place] CHEM PANEL Creatinine 0.54 mg/dL 0.50 - 10/06 MH Lvl 1.40 /2016 [place] CHEM PANEL Potassium Lvl 3.5 meq/L 3.5 - 5.1 10/06 [place] CHEM PANEL BUN 5 mg/dL 7 - 22 10/06 [place] CHEM PANEL ALT 14 unit/L 0 - 65 10/06 [place] CHEM PANEL AST 11 unit/L 0 - 37 10/06 [place] CHEM PANEL Albumin Lvl 2.8 g/dL 3.5 - 5.0 10/06 [place] CHEM PANEL Calcium Lvl 8.9 mg/dL 8.5 - 10.5 10/06 [place] CHEM PANEL Total Protein 7.4 g/dL 6.4 - 8.4 10/06 [place] CHEM PANEL A/G Ratio 0.6 0.7 - 1.6 10/06 [place] CHEM PANEL Globulin 4.6 g/dL 2.7 - 4.2 10/06 [place] CHEM PANEL Bili Total 0.3 mg/dL 0.2 - 1.3 10/06 [place] CHEM PANEL Alk Phos 51 unit/L 39 - 136 10/06 [place] HEMATOLOGY MCV 72.2 fL 80.0 - 10/06 MH 98.0 [place] HEMATOLOGY MCH 23.0 pg 27.0 - 10/06 MH 31.0 [place] HEMATOLOGY MCHC 31.9 g/dL 32.0 - 10/06 MH 36.0 [place] HEMATOLOGY RDW 17.0 % 11.5 - 10/06 MH 14.5 [place] HEMATOLOGY Platelet 271 K/CMM 133 - 450 10/06 [place] HEMATOLOGY MPV 10.5 fL 7.4 - 10.4 10/06 [place] HEMATOLOGY Hct 29.9 % 36.0 - 10/06 MH 48.0 [place] HEMATOLOGY WBC 8.2 K/CMM 3.7 - 10.4 10/06 [place] HEMATOLOGY RBC 4.15 M/CMM 4.20 - 10/06 MH 5.40 /2017 [place] HEMATOLOGY Hgb 9.5 g/dL 12.0 - 10/06 MH 16.0 [place] HEMATOLOGY Eosinophils 1.3 % 0.0 - 4.0 10/06 [place] HEMATOLOGY Segs-Bands # 5.7 K/CMM 1.5 - 8.1 10/06 [place] HEMATOLOGY Monocytes # 0.8 K/CMM 0.0 - 0.8 10/06 [place] HEMATOLOGY Lymphocytes # 1.6 K/CMM 1.0 - 5.5 10/06 [place] HEMATOLOGY Eosinophils # 0.1 K/CMM 0.0 - 0.5 10/06 [place] HEMATOLOGY Basophils 0.4 % 0.0 - 1.0 10/06 [place] HEMATOLOGY Basophils # 0.0 K/CMM 0.0 - 0.2 10/06 [place] HEMATOLOGY Segs 69.4 % 45.0 - 10/06 MH 75.0 /2016 [place] HEMATOLOGY Lymphocytes 18.9 % 20.0 - 10/06 MH 40.0 [place] HEMATOLOGY Monocytes 10.0 % 2.0 - 12.0 10/06 [place] URINE AND UA Mucus Few /LPF None Seen 10/06 [facility] /LPF /2016 [place] URINE AND UA Spec Grav 1.015 <=1.030 10/06 [place] URINE AND UA Nitrite Negative Negative 10/06 [facility] [place] (10/06/16 2:40 AM) [place] URINE AND UA 2.0 mg/dL 0.1 - 1.0 10/06 [facility] Urobilinogen [place] URINE AND UA Blood Negative Negative 10/06 [facility] [place] (10/06/16 2:40 AM) [place] URINE AND UA Bili Negative Negative 10/06 [place] *NA* [place] (10/06/16 2:40 AM) URINE AND UA WBC 2 /HPF 0 - 5 10/06 [place] URINE AND UA RBC null 0 - 2 10/06 [place] URINE AND UA Leuk Est Negative Negative 10/06 [place] (10/06/16 2:40 AM) [place] URINE AND UA Sq Epi Few /LPF Few /LPF 10/06 [facility] [place] URINE AND UA Color Yellow Yellow 10/06 [facility] [place] *NA* [place] (10/06/16 2:40 AM) URINE AND UA pH 6.0 5.0 - 8.0 10/06 [facility] [place] URINE AND UA Protein Negative Negative 10/06 [facility] mg/dL mg/dL [place] URINE AND UA Glucose Negative Negative 10/06 [facility] mg/dL mg/dL [place] URINE AND UA Ketones Negative Negative 10/06 [facility] mg/dL mg/dL [place] URINE AND UA Turbidity Slight Clear 10/06 [place] *ABN* [place] (10/06/16 2:40 AM) F/U CLINICAL HISTORY : , uterus - twin FOR HEART TONE AND POSITION ONLY 10/06 - F/U or or Repeat US /2016 - [place] Repeat US [place] EXAM : Limited obstetric ultrasound 10/06/2016 2:29 AM CDT Read by: Bronwyn Norwood MD Dictated Date/time: 10/06/16 03:56 Electronically Signed by: Bronwyn Norwood MD 10/06/16 03:58 FINAL REPORT COMPARISON : none TECHNIQUE : Utilizing a curved array transducer, real-time ultrasound evaluation of the gravid uterus was performed. Color Doppler imaging was used to assess vascular flow. FINDINGS : There is a twin intrauterine . The cervical length is 3.4 cm Fetus A: The fetus is in cephalic position. The heart rate is 111 beats per minute. Fetus B: The fetus is in transverse position. The heart rate is 144 beats per minute. IMPRESSION: Twin intrauterine . 1. Fetus A in cephalic presentation with a heart rate of 111 bpm 2. Fetus B in transverse presentation with a heart rate of 144 bpm Vital Signs Vital Sign Value Date Comments Source Systolic (mm Hg) 133 12/01/2016 [place] Diastolic (mm Hg) 80 12/01/2016 [place] Temperature Oral (F) 98.2 F 12/01/2016 [place] Respitory Rate 18 12/01/2016 [place] Heart Rate 87 12/01/2016 [place] Heart Rate 90 12/01/2016 [place] Respitory Rate 17 12/01/2016 [place] Temperature Oral (F) 98.4 F 12/01/2016 [place] Systolic (mm Hg) 144 12/01/2016 [place] Diastolic (mm Hg) 89 12/01/2016 [place] Systolic (mm Hg) 136 12/01/2016 [place] Diastolic (mm Hg) 81 12/01/2016 [place] Respitory Rate 18 12/01/2016 [place] Heart Rate 96 12/01/2016 [place] Temperature Oral (F) 98.9 F 12/01/2016 [place] Weight 104.545 11/26/2016 [place] Height 162.56 cm 11/26/2016 [place] BMI Calculated 39.56 11/26/2016 [facility] [place] Systolic (mm Hg) 121 11/11/2016 MH [place] Diastolic (mm Hg) 74 11/11/2016 [facility] [place] Systolic (mm Hg) 127 11/11/2016 MH [place] Diastolic (mm Hg) 75 11/11/2016 [facility] [place] Systolic (mm Hg) 127 11/11/2016 [facility] [place] Diastolic (mm Hg) 87 11/11/2016 MH [place] Temperature Oral (F) 98.3 F 11/11/2016 MH [place] Height 162.56 cm 11/11/2016 [facility] [place] Weight 106.364 11/11/2016 [facility] [place] BMI Calculated 40.25 11/11/2016 [facility] [place] Systolic (mm Hg) 128 10/06/2016 [facility] [place] Diastolic (mm Hg) 78 10/06/2016 [facility] [place] Systolic (mm Hg) 110 10/06/2016 MH [place] Diastolic (mm Hg) 63 10/06/2016 MH [place] Systolic (mm Hg) 114 10/06/2016 MH [place] Diastolic (mm Hg) 67 10/06/2016 [place] Respitory Rate 20 10/06/2016 [place] Temperature Oral (F) 98.3 F 10/06/2016 MH [place] Height 162.56 cm 10/06/2016 [facility] [place] BMI Calculated 37.67 10/06/2016 [facility] [place] Weight 99.545 10/06/2016 MH [place] Weight 90.909 09/19/2016 [place] Encounters Location Location Encounter Encounter Reason Attending ADM DC Status Source Details Type Number For Provider Date Date Visit Outpatient [id number] ULTRASOUND 07/08 [facility] [place] [id number] CHARITY-[facility] 07/08 [facility] [place] [id number] [facility] 07/15 [facility] [place] [id number] CHARITY-UMBERTO 08/05 [facility] [place] [id number] [facility] 09/09 [facility] [id number] Charity-Umber[facility] 09/19 09/20 [place] [facility] [place] [facility] [id number] Charity-Umberto 10/06 10/06 [place] [facility] [place] [facility] [id number] [facility] [place] [facility] [id number] [facility] 10/17 10/18 [place] [facility] [place] [facility] [id number] [facility] 10/21 [facility] [place] [id number] [facility]04 [facility] [place] [facility] [id number] Charity-Umber[facility] 11/07 11/08 [place] [facility] [place] [facility] [id number] [facility] 11[facility]11 [facility] [place] [facility] [id number] Charity-U[facility] 11/11 11/11 [place] [facility] [place] [facility] [id number] Charity-U[facility] 11/18 11/19 [place] [facility] [place] [facility] [id number] [facility] 11/22 [facility] [place] [facility] [id number] LUISA 11/22 Active [facility] [place] [facility] [id number] Charity-Umberto 11/25 11/26 [place] [facility] [place] [facility] [id number] Charity-U[facility]to 11/26 12/01 [place] [facility] [place] [facility] [id number] [facility] 12/09 [facility] [place] [id number] [facility] 01/06 [facility] [place] [facility] [id number] C[facility]ICE 02/06 [facility] [place] [facility] [id number] [facility] [place] [facility] [id number] [facility] 02/10 [facility] [place] [facility] [id number] [facility] 02/17 [facility] [place] [id number] CHARITY-UMBERT[facility] 07/14 Active [facility] /2017 [place] Procedures Procedure Code Date Perfomer Comments Source Laparoscopic [id number] [facility] [place] excision of cyst of [place] right ovary
--- OUTSIDE RECORDS SUMMARY | 2018-10-04 10:56 | XMS REPORT | Summary of Care ---
:1990 Author Organization [facility] Address [address], [place] [address]- Encounter HQ Encntr_alias(FIN) [id number] Date(s): 11/07/16 - 11/07/16 [facility] [id number] [place] [address]- Discharge Disposition: Home or Self Care Attending Physician: Prem Wynne MD Admitting Physician: Prem Wynne MD Referring Physician: Prem Wynne MD Vital Signs No data available for this section Problem List Condition Effective Dates Status Health Status Informant Twin , Active dichorionic/diamniotic, third trimester(Confirmed) HTN (hypertension)(Confirmed) Active Multiple (Confirmed) Active Obesity(Confirmed) Active (Confirmed) 04/04/16 Active (Confirmed) 01/20/13 - 05/19/13 Resolved Allergies, Adverse Reactions, Alerts Substance Reaction Severity Status amoxicillin Active Medications No data available for this section Results No data available for this section Immunizations No data available for this section Procedures Procedure Date Related Diagnosis Body Site Laparoscopic excision of cyst of right ovary Social History Social History Type Response Substance Abuse Use: None. Alcohol Past Smoking Status Never smoker; Ready to change: No; Concerns about tobacco use in household: No; Exposure to Tobacco Smoke None; Cigarette Smoking Last 365 Days No; Reg Smoking Cessation Counseling No Assessment and Plan No data available for this section"
--- OUTSIDE RECORDS SUMMARY | 2018-10-04 10:56 | XMS REPORT | Summary of Care ---
:1990 Author Organization [facility] Address [address], [place] [address]- Encounter HQ Michael_joseph(NILE) [id number] Date(s): 10/06/16 - 10/06/16 [facility] [id number] [place] [phone]- Discharge Disposition: Home or Self Care Attending Physician: Prem Wynne MD Admitting Physician: Prem Wynne MD Vital Signs Most recent to oldest 1 2 3 [Reference Range]: Height 162.56 cm (10/06/16 2:00 AM) Temperature Oral [96.4-99.1 98.3 DegF DegF] (10/06/16 2:17 AM) Blood Pressure [90-140/60-90 128/78 mmHg 110/63 mmHg 114/67 mmHg mmHg] (10/06/16 3:55 AM) (10/06/16 3:23 AM) (10/06/16 3:13 AM) Respiratory Rate [14-20 BRMIN] 20 BRMIN (10/06/16 2:33 AM) Weight 99.545 kg (10/06/16 2:00 AM) Body Mass Index 37.67 m2 (10/06/16 2:00 AM) Problem List Condition Effective Dates Status Health Status Informant HTN (hypertension)(Confirmed) Active Multiple (Confirmed) Active Obesity(Confirmed) Active (Confirmed) 04/04/16 Active (Confirmed) 01/20/13 - 05/19/13 Resolved Allergies, Adverse Reactions, Alerts Substance Reaction Severity Status amoxicillin Active Medications Lactated Ringers 1,000 mL 1,000 mL, Rate: 125 ml/hr, Infuse over: 8 hr, Route: IV, Dosing Weight 99.545 kg , Total Volume: 1,000, Start date: 10/06/16 2:45:00 CDT, Duration: 30 day, Stop date: 11/05/16 2:44:00 CDT Start Date: 10/06/16 Stop Date: 10/06/16 Status: DiscontinuedZofran 4 mg, 2 mL, Route: IVP, Drug form: INJ, ONCE, Dosing Weight 99.545, kg, Start date: 10/06/16 2:44:00CDT, Stop date: 10/06/16 2:44:00 CDT Notes: (Same as: Zofran) MEDICATION WASTE Product Size: 4 mgProduct Wasted: ___ mg Start Date: 10/06/16 Stop Date: 10/06/16 Status: Completed Results ELECTROLYTES Most recent to oldest [Reference Range]: 1 Sodium Lvl [135-145 mEq/L] 139 mEq/L (10/06/16 2:47 AM) Potassium Lvl [3.5-5.1 mEq/L] 3.5 mEq/L (10/06/16 2:47 AM) Chloride Lvl [95-109 mEq/L] 107 mEq/L (10/06/16 2:47 AM) CO2 [24-32 mEq/L] 24 mEq/L (10/06/16 2:47 AM) AGAP [10.0-20.0 mEq/L] 11.5 mEq/L (10/06/16 2:47 AM) CHEM PANEL Most recent to oldest [Reference Range]: 1 Creatinine Lvl [0.50-1.40 mg/dL] 0.54 mg/dL (10/06/16 2:47 AM) eGFR 151 mL/min/1.73m2 1 *NA* (10/06/16 2:47 AM) BUN [7-22 mg/dL] 5 mg/dL *LOW* (10/06/16 2:47 AM) B/C Ratio [6-25] 9 (10/06/16 2:47 AM) Glucose Lvl [70-99 mg/dL] 83 mg/dL (10/06/16 2:47 AM) Uric Acid [2.5-7.0 mg/dL] 2.8 mg/dL (10/06/16 2:47 AM) Total Protein [6.4-8.4 g/dL] 7.4 g/dL (10/06/16 2:47 AM) Albumin Lvl [3.5-5.0 g/dL] 2.8 g/dL *LOW* (10/06/16 2:47 AM) Globulin [2.7-4.2 g/dL] 4.6 g/dL *HI* (10/06/16 2:47 AM) A/G Ratio [0.7-1.6] 0.6 *LOW* (10/06/16 2:47 AM) Calcium Lvl [8.5-10.5 mg/dL] 8.9 mg/dL (10/06/16 2:47 AM) ALT [0-65 unit/L] 14 unit/L (10/06/16 2:47 AM) AST [0-37 unit/L] 11 unit/L (10/06/16 2:47 AM) Alk Phos [39-136 unit/L] 51 unit/L (10/06/16 2:47 AM) LDH [98-192 unit/L] 151 unit/L (10/06/16 2:47 AM) Bili Total [0.2-1.3 mg/dL] 0.3 mg/dL (10/06/16 2:47 AM) 1Result Comment: The eGFR is calculated using the CKD-EPI formula. In most young , healthy individualsthe eGFR will be >90 mL/min/1.73m2. The eGFR declines with age. An eGFR of 60-89 may be normal in some populations, particularly the elderly, for whom the CKD-EPI formula has not been extensively validated. Use of the eGFR is not recommended in the following populations: Individuals with unstable creatinine concentrations, including patients and those with serious co-morbid conditions. Patients with extremes in muscle mass or diet. The data above are obtained from the National Kidney Disease Education Program ( NKDEP) which additionally recommends that when the eGFR is used in patients with extremes of body mass index for purposesof drug dosing, the eGFR should be multiplied by the estimated BMI.URINE AND STOOL Most recent to oldest [Reference Range]: 1 UA Turbidity [Clear] Slight *ABN* (10/06/16 2:40 AM) UA Color [Yellow] Yellow *NA* (10/06/16 2:40 AM) UA pH [5.0-8.0] 6.0 (10/06/16 2:40 AM) UA Spec Grav [<=1.030] 1.015 (10/06/16 2:40 AM) UA Glucose [Negative mg/dL] Negative mg/dL *NA* (10/06/16 2:40 AM) UA Blood [Negative] Negative (10/06/16 2:40 AM) UA Ketones [Negative mg/dL] Negative mg/dL *NA* (10/06/16 2:40 AM) UA Protein [Negative mg/dL] Negative mg/dL (10/06/16 2:40 AM) UA Urobilinogen [0.1-1.0 mg/dL] 2.0 mg/dL *HI* (10/06/16 2:40 AM) UA Bili [Negative] Negative *NA* (10/06/16 2:40 AM) UA Leuk Est [Negative] Negative (10/06/16 2:40 AM) UA Nitrite [Negative] Negative (10/06/16 2:40 AM) UA WBC [0-5 /HPF] 2 /HPF (10/06/16 2:40 AM) UA RBC [0-2 /HPF] <1 /HPF (10/06/16 2:40 AM) UA Sq Epi [Few /LPF] Few /LPF *NA* (10/06/16 2:40 AM) UA Mucus [None Seen /LPF] Few /LPF *NA* (10/06/16 2:40 AM) HEMATOLOGY Most recent to oldest [Reference Range]: 1 WBC [3.7-10.4 K/CMM] 8.2 K/CMM (10/06/16 2:47 AM) RBC [4.20-5.40 M/CMM] 4.15 M/CMM *LOW* (10/06/16 2:47 AM) Hgb [12.0-16.0 g/dL] 9.5 g/dL *LOW* (10/06/16 2:47 AM) Hct [36.0-48.0 %] 29.9 % *LOW* (10/06/16 2:47 AM) MCV [80.0-98.0 fL] 72.2 fL *LOW* (10/06/16 2:47 AM) MCH [27.0-31.0 pg] 23.0 pg *LOW* (10/06/16 2:47 AM) MCHC [32.0-36.0 g/dL] 31.9 g/dL *LOW* (10/06/16 2:47 AM) RDW [11.5-14.5 %] 17.0 % *HI* (10/06/16 2:47 AM) Platelet [133-450 K/CMM] 271 K/CMM (10/06/16 2:47 AM) MPV [7.4-10.4 fL] 10.5 fL *HI* (10/06/16 2:47 AM) Segs [45.0-75.0 %] 69.4 % (10/06/16 2:47 AM) Lymphocytes [20.0-40.0 %] 18.9 % *LOW* (10/06/16 2:47 AM) Monocytes [2.0-12.0 %] 10.0 % (10/06/16 2:47 AM) Eosinophils [0.0-4.0 %] 1.3 % (10/06/16 2:47 AM) Basophils [0.0-1.0 %] 0.4 % (10/06/16 2:47 AM) Segs-Bands # [1.5-8.1 K/CMM] 5.7 K/CMM (10/06/16 2:47 AM) Lymphocytes # [1.0-5.5 K/CMM] 1.6 K/CMM (10/06/16 2:47 AM) Monocytes # [0.0-0.8 K/CMM] 0.8 K/CMM (10/06/16 2:47 AM) Eosinophils # [0.0-0.5 K/CMM] 0.1 K/CMM (10/06/16 2:47 AM) Basophils # [0.0-0.2 K/CMM] 0.0 K/CMM (10/06/16 2:47 AM) PT [12.0-14.7 seconds] 14.9 seconds *HI* (10/06/16 3:20 AM) INR [0.85-1.17] 1.15 (10/06/16 3:20 AM) PTT [22.9-35.8 seconds] 31.9 seconds (10/06/16 3:20 AM) Immunizations No data available for this section [...] and Plan No data available for this section
--- OUTSIDE RECORDS SUMMARY | 2018-10-04 10:56 | XMS REPORT | Summary of Care ---
:1990 Author Organization [facility] Address [address], [place] [address]- Encounter HQ Encntr_joseph(NILE) [id number] Date(s): 11/18/16 - 11/18/16 [facility] [id number] [place] [phone]- Discharge Disposition: Home or Self Care Attending Physician: Prem Wynne MD Admitting Physician: Prem Wynne MD Referring Physician: Prem Wynne MD Vital Signs No data available for this section Problem List Condition Effective Dates Status Health Status Informant Twin , Active dichorionic/diamniotic, third trimester(Confirmed) HTN (hypertension)(Confirmed) Active Chronic hypertension(Confirmed) Active Multiple (Confirmed) Active Obesity(Confirmed) Active (Confirmed) [...]
--- OUTSIDE RECORDS SUMMARY | 2018-10-04 10:56 | XMS REPORT | Summary of Care ---
:1990 Author Organization [facility] Address [address] [place], [place] [address]- Encounter HQ Michael_joseph([facility]) [id number] Date(s): 11/11/16 - 11/11/16 [facility] [id number] [place] [address]- Discharge Disposition: Home or Self Care Attending Physician: Prem Wynne MD Admitting Physician: Prem Wynne MD Vital Signs Most recent to oldest 1 2 3 [Reference Range]: Height 162.56 cm (11/11/16 10:35 AM) Temperature Oral [96.4-99.1 98.3 DegF DegF] (11/11/16 11:19 AM) Blood Pressure [90-140/60-90 121/74 mmHg 127/75 mmHg 127/87 mmHg mmHg] (11/11/16 12:10 PM) (11/11/16 11:59 AM) (11/11/16 11:39 AM) Weight 106.364 kg (11/11/16 10:35 AM) Body Mass Index 40.25 m2 (11/11/16 10:35 AM) Problem List Condition Effective Dates Status Health Status Informant Twin , Active dichorionic/diamniotic, third trimester(Confirmed) HTN (hypertension)(Confirmed) Active Chronic hypertension(Confirmed) Active Multiple (Confirmed) Active Obesity(Confirmed) Active (Confirmed) 04/04/16 Active (Confirmed) 01/20/13 - 05/19/13 Resolved Allergies, Adverse Reactions, Alerts Substance Reaction Severity Status amoxicillin Active Medications No Known Medications Results ELECTROLYTES Most recent to oldest [Reference Range]: 1 Sodium Lvl [135-145 mEq/L] 137 mEq/L (11/11/16 10:41 AM) Potassium Lvl [3.5-5.1 mEq/L] 3.4 mEq/L *LOW* (11/11/16 10:41 AM) Chloride Lvl [95-109 mEq/L] 106 mEq/L (11/11/16 10:41 AM) CO2 [24-32 mEq/L] 23 mEq/L *LOW* (11/11/16 10:41 AM) AGAP [10.0-20.0 mEq/L] 11.4 mEq/L (11/11/16 10:41 AM) CHEM PANEL Most recent to oldest [Reference Range]: 1 Creatinine Lvl [0.50-1.40 mg/dL] 0.52 mg/dL (11/11/16 10:41 AM) eGFR 152 mL/min/1.73m2 1 *NA* (11/11/16 10:41 AM) BUN [7-22 mg/dL] 7 mg/dL (11/11/16 10:41 AM) B/C Ratio [6-25] 13 (11/11/16 10:41 AM) Glucose Lvl [70-99 mg/dL] 81 mg/dL (11/11/16 10:41 AM) Uric Acid [2.5-7.0 mg/dL] 3.1 mg/dL (11/11/16 10:41 AM) Total Protein [6.4-8.4 g/dL] 7.4 g/dL (11/11/16 10:41 AM) Albumin Lvl [3.5-5.0 g/dL] 2.7 g/dL *LOW* (11/11/16 10:41 AM) Globulin [2.7-4.2 g/dL] 4.7 g/dL *HI* (11/11/16 10:41 AM) A/G Ratio [0.7-1.6] 0.6 *LOW* (11/11/16 10:41 AM) Calcium Lvl [8.5-10.5 mg/dL] 8.7 mg/dL (11/11/16 10:41 AM) ALT [0-65 unit/L] 13 unit/L (11/11/16 10:41 AM) AST [0-37 unit/L] 14 unit/L (11/11/16 10:41 AM) Alk Phos [39-136 unit/L] 78 unit/L (11/11/16 10:41 AM) LDH [98-192 unit/L] 152 unit/L (11/11/16 10:41 AM) Bili Total [0.2-1.3 mg/dL] 0.4 mg/dL (11/11/16 10:41 AM) 1Result Comment: The eGFR is calculated [...] should be multiplied by the estimated BMI.URINE CHEM Most recent to oldest [Reference Range]: 1 U Creatinine 123.00 mg/dL *NA* (11/11/16 10:41 AM) U Protein 14.3 mg/dL *NA* (11/11/16 10:41 AM) U Prot/Creat 0.1 *NA* (11/11/16 10:41 AM) URINE AND STOOL Most recent to oldest [Reference Range]: 1 UA Turbidity [Clear] Slight *ABN* (11/11/16 10:41 AM) UA Color [Yellow] Light Yellow *NA* (11/11/16 10:41 AM) UA pH [5.0-8.0] 6.0 (11/11/16 10:41 AM) UA Spec Grav [<=1.030] 1.012 (11/11/16 10:41 AM) UA Glucose [Negative mg/dL] Negative mg/dL *NA* (11/11/16 10:41 AM) UA Blood [Negative] Negative (11/11/16 10:41 AM) UA Ketones [Negative mg/dL] Negative mg/dL *NA* (11/11/16 10:41 AM) UA Protein [Negative mg/dL] Negative mg/dL (11/11/16 10:41 AM) UA Urobilinogen [0.1-1.0 mg/dL] <=1.0 mg/dL *NA* (11/11/16 10:41 AM) UA Bili [Negative] Negative *NA* (11/11/16 10:41 AM) UA Leuk Est [Negative] Small *ABN* (11/11/16 10:41 AM) UA Nitrite [Negative] Negative (11/11/16 10:41 AM) UA WBC [0-5 /HPF] 3 /HPF (11/11/16 10:41 AM) UA RBC [0-2 /HPF] 1 /HPF (11/11/16 10:41 AM) UA Bacteria [None Seen /HPF] Occasional /HPF *NA* (11/11/16 10:41 AM) UA Sq Epi [Few /LPF] Few /LPF *NA* (11/11/16 10:41 AM) UA Mucus [None Seen /LPF] Few /LPF *NA* (11/11/16 10:41 AM) HEMATOLOGY Most recent to oldest [Reference Range]: 1 WBC [3.7-10.4 K/CMM] 7.7 K/CMM (11/11/16 10:41 AM) RBC [4.20-5.40 M/CMM] 4.40 M/CMM (11/11/16 10:41 AM) Hgb [12.0-16.0 g/dL] 10.0 g/dL *LOW* (11/11/16 10:41 AM) Hct [36.0-48.0 %] 31.3 % *LOW* (11/11/16 10:41 AM) MCV [80.0-98.0 fL] 71.1 fL *LOW* (11/11/16 10:41 AM) MCH [27.0-31.0 pg] 22.6 pg *LOW* (11/11/16 10:41 AM) MCHC [32.0-36.0 g/dL] 31.8 g/dL *LOW* (11/11/16 10:41 AM) RDW [11.5-14.5 %] 17.4 % *HI* (11/11/16 10:41 AM) Platelet [133-450 K/CMM] 286 K/CMM (11/11/16 10:41 AM) MPV [7.4-10.4 fL] 10.8 fL *HI* (11/11/16 10:41 AM) Segs [45.0-75.0 %] 74.8 % (11/11/16 10:41 AM) Lymphocytes [20.0-40.0 %] 16.6 % *LOW* (11/11/16 10:41 AM) Monocytes [2.0-12.0 %] 7.4 % (11/11/16 10:41 AM) Eosinophils [0.0-4.0 %] 1.0 % (11/11/16 10:41 AM) Basophils [0.0-1.0 %] 0.2 % (11/11/16 10:41 AM) Segs-Bands # [1.5-8.1 K/CMM] 5.7 K/CMM (11/11/16 10:41 AM) Lymphocytes # [1.0-5.5 K/CMM] 1.3 K/CMM (11/11/16 10:41 AM) Monocytes # [0.0-0.8 K/CMM] 0.6 K/CMM (11/11/16 10:41 AM) Eosinophils # [0.0-0.5 K/CMM] 0.1 K/CMM (11/11/16 10:41 AM) Basophils # [0.0-0.2 K/CMM] 0.0 K/CMM (11/11/16 10:41 AM) Immunizations No data available for this [...]
--- OUTSIDE RECORDS SUMMARY | 2018-10-04 10:56 | XMS REPORT | Summary of Care ---
:1990 Author Organization [facility] Address [address], [place] [address]- Encounter HQ Encntr_alishilpi(FIN) [id number] Date(s): 10/17/16 - 10/17/[address] [address]- Discharge Disposition: Home or Self Care Attending [...]
--- OUTSIDE RECORDS SUMMARY | 2018-10-04 10:57 | XMS REPORT | Summary of Care ---
:1990 Author Organization [facility] Address [address], [place] [address]- Encounter HQ Aleksandrantr_joseph([facility]) [id number] Date(s): 11/26/16 - 12/01/16 [facility] [address] [place] [address]- Discharge Disposition: Home or Self Care Attending Physician: Prem Wynne MD Admitting Physician: Prem Wynne MD Vital Signs Most recent to oldest 1 2 3 [Reference Range]: Height 162.56 cm (11/26/16 12:55 PM) Temperature Oral [96.4-99.1 98.2 DegF 98.4 DegF 98.9 DegF DegF] (12/01/16 12:00 PM) (12/01/16 8:00 AM) (12/01/16 3:54 AM) Blood Pressure [90-140/60-90 133/80 mmHg 144/89 mmHg 136/81 mmHg mmHg] (12/01/16 12:00 PM) *HI* (12/01/16 3:54 AM) (12/01/16 8:00 AM) Respiratory Rate [14-20 BRMIN] 18 BRMIN 17 BRMIN 18 BRMIN (12/01/16 12:00 PM) (12/01/16 8:00 AM) (12/01/16 3:54 AM) Peripheral Pulse Rate [60-100 87 bpm 90 bpm 96 bpm bpm] (12/01/16 12:00 PM) (12/01/16 8:00 AM) (12/01/16 3:54 AM) Weight 104.545 kg (11/26/16 12:55 PM) Body Mass Index 39.56 m2 (11/26/16 12:55 PM) Problem List Condition Effective Dates Status Health Status Informant Twin , Active dichorionic/diamniotic, third trimester(Confirmed) HTN (hypertension)(Confirmed) Active Chronic hypertension(Confirmed) Active Multiple (Confirmed) Active Obesity(Confirmed) Active (Confirmed) 04/04/16 - 11/28/16 Resolved (Confirmed) 01/20/13 - 05/19/13 Resolved Allergies, Adverse Reactions, Alerts Substance Reaction Severity Status amoxicillin Active ibuprofen Itching Mild Active Medications acetaminophen 650 mg, 2 tab, Route: PO, Drug form: TAB, Q4H, Dosing Weight 104.545, kg, PRN Other -See Comment, Start date: 11/28/16 9:11:00 CDT, Duration: 30 day, Stop date: 12/28/16 9:10:00 CDT Notes: Do not exceed 4 gm/day. (Same as: Tylenol) Start Date: 11/28/16 Stop Date: 12/01/16 Status: Discontinuedacetaminophen 325 mg oral tablet 325 mg=1 tab, PO, Q6H, PRN Pain Score 1-5, 0 Refill(s) Start Date: 11/30/16 Status: Orderedacetaminophen-hydrocodone 325 mg-10 mg oral tablet 1 tab, Route: PO, Drug Form: TAB, Dosing Weight 104.545, kg, Q4H, PRN Pain Score 7-10, Start date: 11/28/16 9:11:00 CDT, Duration: 30 day, Stop date: 12/28 9:10:00 CDT Notes: Do not exceed 4gm/day of acetaminophen. (Same as: Castalia 325/10) Start Date: 11/28/16 Stop Date: 12/01/16 Status: Discontinuedacetaminophen-hydrocodone 325 mg-10 mg oral tablet 1 tab, PO, Q4H, PRN Pain Score 7-10, 0 Refill(s) Start Date: 11/30/16 Status: Orderedacetaminophen-hydrocodone 325 mg-5 mg oral tablet 1 tab, Route: PO, Drug Form: TAB, Dosing Weight 104.545, kg, Q4H, PRN Pain Score 4-6, Start date: 11/28/16 9:11:00 CDT, Duration: 30 day, Stop date: 9:10:00 CDT Notes: (Same as: Castalia 325/5) Do not exceed 4gm/day of acetaminophen. Start Date: 11/28/16 Stop Date: 12/01/16 Status: DiscontinuedBenadryl 25 mg, 1 cap, Route: PO, Drug form: CAP, TID, Dosing Weight 104.545, kg, PRN Itching, Start date: 11/29/16 18:50:00 CDT, Duration: 30 day, Stop date: 18:49:00 CDT Notes: (Same as: Benadryl) Start Date: 11/29/16 Stop Date: 12/01/16 Status: Discontinuedbetamethasone 12 mg, 2 mL, Route: IM, Drug form: INJ, Q24H, Dosing Weight 104.545, kg, Start date: 11/26/16 15:00:00 CDT, Duration: 2 doses or times, Stop date: 11/27/16 15: 00:00 CDT Notes: (betamethasone acetate-sodium phosphate 6 mg/ml INJ) (Same As: Celestone Soluspan) Start Date: 11/26/16 Stop Date: 11/27/16 Status: Completedbisacodyl 10 mg, 1 supp, Route: VT, Drug form: SUPP, PRN, Dosing Weight 104.545, kg, PRN Other -See Comment, Start date: 11/28/16 9:11:00 CDT, Duration: 30 day, Stop date: 12/28/16 9:10:00 CDT Notes: (Same As: Dulcolax, Bisco-Lax) Start Date: 11/28/16 Stop Date: 12/01/16 Status: Discontinuedbisacodyl 15 mg, 3 tab, Route: PO, Drug form: ECTAB, Daily, Dosing Weight 104.545, kg, PRN Other -See Comment,Start date: 11/28/16 9:11:00 CDT, Duration: 30 day, Stop date: 12/28/16 9:10:00 CDT Notes: (Same As: Dulcolax, Correctol) (Do Not Crush) "Do Not Crush" Start Date: 11/28/16 Stop Date: 12/01/16 Status: Discontinuedbupivacaine (ANES) Route: INTRATHECAL, Drug Form: INJ, ONCE, Stop date: 11/28/16 9:09:00 CDT Start Date: 11/28/16 Stop Date: 11/28/16 Status: Completedcalcium gluconate 1 gm, Route: IVP, Drug form: INJ, ONCE, Dosing Weight 104.545, kg, PRN Other - See Comment, Start date: 11/27/16 14:14:00 CDT Notes: WASTE: F/P - Sink; E - Municipal Trash Bin Start Date: 11/27/16 Stop Date: 11/29/16 Status: Discontinuedcalcium gluconate 1 gm, Route: IVP, Drug form: INJ, ONCE, Dosing Weight 104.545, kg, PRN Other - See Comment, Start date: 11/26/16 14:48:00 CDT Notes: WASTE: F/P - Sink; E - Municipal Trash Bin Start Date: 11/26/16 Stop Date: 11/27/16 Status: Discontinuedcarboprost 250 microgram, 1 mL, Route: IM, Drug form: INJ, ONCALL, Dosing Weight 104.545, kg, Start date: 11/27/16 14:00:00 CDT, Duration: 30 day, Stop date: 12/27/16 13: 59:00 CDT Notes: (Same As: Hemabate) Start Date: 11/27/16 Stop Date: 11/28/16 Status: Discontinuedcitric acid-sodium citrate 30 mL, Route: PO, Drug Form: SOLN, Dosing Weight 104.545, kg, ONCE, Start date: 11/27/16 14:00:00 CDT, Duration: 1 doses or times, Stop date: 11/27/16 14:00:00 CDT Notes: (Same As: Bicitra) Start Date: 11/27/16 Stop Date: 11/28/16 Status: Completedclindamycin 900 mg, 50 mL, Route: IVPB, Drug form: INJ, ONCALL, Dosing Weight 104.545, kg, Start date: 11/27/16 14:00:00 CDT, Duration: 1 doses or times, Stop date: 14:00:00 CDT, ABX Indication: Surgical Prophylaxis Start Date: 11/27/16 Stop Date: 11/28/16 Status: Completedclindamycin 900 mg, 50 mL, Route: IVPB, Drug form: INJ, ABXQ8H, Dosing Weight 104.545, kg, Start date: 11/26/16 23:00:00 CDT, Duration: 3 day, Stop date: 11/29/16 15:00: 00 CDT, GBS unknown, ABX Indication: Other (specify in Comments) Start Date: 11/26/16 Stop Date: 11/27/16 Status: Discontinuedclindamycin (ANES) Route: IV, Drug form: INJ, ONCE, Stop date: 11/28/16 9:09:00 CDT Start Date: 11/28/16 Stop Date: 11/28/16 Status: CompleteddiphenhydrAMINE 12.5 mg, 5 mL, Route: PO, Drug form: LIQ, Q6H, Dosing Weight 104.545, kg, PRN Itching, Start date: 11/28/16 9:30:00 CDT, Duration: 30 day, Stop date: 9:29:00 CDT Notes: (Same as: Benadryl) Start Date: 11/28/16 Stop Date: 11/29/16 Status: Discontinueddocusate 100 mg, 1 cap, Route: PO, Drug form: CAP, BID, Dosing Weight 104.545, kg, PRN Constipation, Start date: 11/28/16 9:11:00 CDT, Duration: 30 day, Stop date: 05/04 9:10:00 CDT Notes: (Same as: Colace) (Do Not Crush) Start Date: 11/28/16 Stop Date: 12/01/16 Status: Discontinueddocusate sodium 100 mg oral capsule 100 mg=1 cap, PO, BID, PRN Constipation, # 60 cap, 2 Refill(s) Start Date: 11/30/16 Stop Date: 02/28/17 Status: Orderedfamotidine 20 mg, Route: IVP, ONCE, Dosing Weight 104.545, kg, Start date: 11/28/16 6:55: 00 CDT, Duration: 1 doses or times, Stop date: 11/28/16 6:55:00 CDT Start Date: 11/28/16 Stop Date: 11/28/16 Status: CompletedfentaNYL (ANES) Route: INTRATHECAL, Drug form: INJ, ONCE, Stop date: 11/28/16 9:09:00 CDT Start Date: 11/28/16 Stop Date: 11/28/16 Status: Completedgentamicin (ANES) Route: IV, Drug form: INJ, ONCE, Stop date: 11/28/16 9:09:00 CDT Start Date: 11/28/16 Stop Date: 11/28/16 Status: Completedgentamicin + sodium chloride 0.9% INJ 100 mL 150 mg, 3.75 mL, Route: IVPB, ONCALL, Dosing Weight 74.638, kg, Start date: 05/04 14:00:00 CDT, Duration: 1 doses or times Notes: TIME CRITICAL MEDICATION(Same as Garamycin) Start Date: 11/27/16 Stop Date: 11/28/16 Status: Completedibuprofen 600 mg, 1 tab, Route: PO, Drug form: TAB, Q6H, Dosing Weight 104.545, kg, Start date: 11/28/16 12:00:00 CDT, Duration: 30 day, Stop date: 12/28/16 6:00:00 CDT Notes: (Same as: Motrin)"Do Not Crush" Take with food. Start Date: 11/28/16 Stop Date: 11/29/16 Status: Discontinuedibuprofen 800 mg, 2 tab, Route: PO, Drug form: TAB, ONCE, Dosing Weight 104.545, kg, Start date: 11/30/16 16:23:00 CDT, Stop date: 11/30/16 16:23:00 CDT Notes: (Same as: Motrin)"Do Not Crush" Give with food. Start Date: 11/30/16 Stop Date: 11/30/16 Status: Completedibuprofen 800 mg, Route: PO, Drug form: TAB, TID, Dosing Weight 104.545, kg, Start date: 11/30/16 17:00:00 CDT, Duration: 30 day, Stop date: 12/30/16 13:00:00 CDT Start Date: 11/30/16 Stop Date: 11/30/16 Status: CanceledketOROLAC 30 mg, 1 mL, Route: IVP, Drug form: INJ, Q6H, Dosing Weight 104.545, kg, PRN Pain Score 4-6, Start date: 11/28/16 9:30:00 CDT, Duration: 24 hr, Stop date: 9:29:00 CDT Notes: (Same as:Toradol) IV bolus must be given >15 seconds. Give IM administration slowly and deeply into the muscle.Not for use > 4 days MEDICATION WASTE Product Size: 30 mgProduct Wasted: ___ mg Start Date: 11/28/16 Stop Date: 11/29/16 Status: Completedlabetalol 100 mg, 1 tab, Route: PO, Drug form: TAB, BID, Dosing Weight 104.545, kg, Start date: 11/26/16 17:00:00 CDT, Stop date: 12/26/16 9:00:00 CDT Notes: With food. (Same as:Trandate, Normodyne) Start Date: 11/26/16 Stop Date: 12/01/16 Status: Discontinuedlabetalol 100 mg oral tablet 100 mg=1 tab, PO, BID, 0 Refill(s) Start Date: 11/30/16 Status: OrderedLactated Ringers (Bolus) IV 1,000 mL, 1,000 ml/hr, Infuse Over: 1 hr, Route: IV, 1,000, Drug form: INJ, ONCE , Dosing Weight 104.545 kg, Start date: 11/27/16 14:00:00 CDT, Stop date: 14:00:00 CDT Start Date: 11/27/16 Stop Date: 11/28/16 Status: CompletedLactated Ringers 1,000 mL 1,000 mL, Rate: 100 ml/hr, Infuse over: 10 hr, Route: IV, Dosing Weight 104.545 kg, Total Volume: 1,000, Start date: 11/28/16 9:11:00 CDT, Duration: 30 day, Stop date: 12/28/16 9:10:00 CDT Start Date: 11/28/16 Stop Date: 12/01/16 Status: DiscontinuedLactated Ringers 1,000 mL 1,000 mL, Rate: 125 ml/hr, Infuse over: 8 hr, Route: IV, Dosing Weight 104.545 kg, Total Volume: 1,000, Start date: 11/27/16 14:00:00 CDT, Duration: 30 day, Stop date: 12/27/16 13:59:00 CDT Start Date: 11/27/16 Stop Date: 11/28/16 Status: DiscontinuedLactated Ringers 1,000 mL 1,000 mL, Rate: 125 ml/hr, Infuse over: 8 hr, Route: IV, Dosing Weight 104.545 kg, Total Volume: 1,000, Start date: 11/26/16 13:23:00 CDT, Duration: 30 day, Stop date: 12/26/16 13:22:00 CDT Start Date: 11/26/16 Stop Date: 11/27/16 Status: DiscontinuedLactated Ringers 1,000 mL 1,000 mL, Rate: Titrate, Dosing Weight 104.545, kg, Route: IV, Total Volume: 1, 000, Start Date: 11/26/16 14:48:00 CDT, Duration: 30 day, Stop date: 12/26/16 14 :47:00 CDT, Replace Every: 24 hr Start Date: 11/26/16 Stop Date: 11/27/16 Status: Discontinuedlanolin topical cream 1 appl, Route: TOP, PRN, Drug form: OINT, PRN Other -See Comment, Start date: 9:11:00 CDT, Duration: 30 day, Stop date: 12/28/16 9:10:00 CDT Notes: (Same as:Lanolin) Start Date: 11/28/16 Stop Date: 12/01/16 Status: DiscontinuedLR 1000 mL INJ (ANES) Route: IV, Total Volume: 1,000, Start date: 11/28/16 7:53:00 CDT, Stop date: 8:53:00 CDT Start Date: 11/28/16 Stop Date: 11/28/16 Status: JgnthlgtkY-S-Y II 0.5 mL, Route: SUB-Q, Drug Form: PDR/INJ, Dosing Weight 104.545, kg, ONCALL, Start date: 11/28/16 10:00:00 CDT, Duration: 1 doses or times Notes: (Same as: M-M-R II) (tkozjry-qzlzk-yunguit virus vaccine 0.5 ml INJ VL) WASTE: F/P - Red; E -Red GIVE PRIOR TO DISCHARGE Start Date: 11/28/16 Stop Date: 12/01/16 Status: Discontinuedmagnesium sulfate 20 gm/500 ml SOLN 20 gm 500 mL, Rate: 50 ml/hr, Infuse over: 10 hr, Route: IV, Dosing Weight 104.545 kg , Total Volume: 500, Start date: 11/27/16 14:14:00 CDT, Duration: 30 day, Stop date: 12/27/16 14:13:00 CDT Notes: (Same as: MgSO4)WASTE: F/P - Sink; E - Municipal Trash Bin Start Date: 11/27/16 Stop Date: 11/29/16 Status: Discontinuedmagnesium sulfate 20 gm/500 ml SOLN 20 gm 500 mL, Rate: 50 ml/hr, Infuse over: 10 hr, Route: IV, Dosing Weight 104.545 kg , Total Volume: 500, Start date: 11/26/16 14:48:00 CDT, Duration: 30 day, Stop date: 12/26/16 14:47:00 CDT Notes: (Same as: MgSO4)WASTE: F/P - Sink; E - Municipal Trash Bin Start Date: 11/26/16 Stop Date: 11/27/16 Status: Discontinuedmagnesium sulfate 4 gm / 100 mL solution 4 gm, 100 mL, Route: IVPB, Drug form: INJ, ONCE, Dosing Weight 104.545, kg, Loading dose; Dilute in 100 ml; Infuse over 30 minutes @ 200 ml/hr, Start date: 11/26/16 14:48:00 CDT, Duration: 1 doses or times, Stop date: 11/26/16 14:48:00 CDT Notes: WASTE: F/P - Sink; E - Municipal Trash Bin Start Date: 11/26/16 Stop Date: 11/26/16 Status: Completedmethylergonovine 0.2 mg, 1 mL, Route: IM, Drug form: INJ, ONCALL, Dosing Weight 104.545, kg, Start date: 11/27/16 14:00:00 CDT, Duration: 30 day, Stop date: 12/27/16 13:59: 00 CDT Notes: (Same as:Methergine) Start Date: 11/27/16 Stop Date: 11/28/16 Status: Discontinuedmetoclopramide 10 mg, 2 mL, Route: IVP, Drug form: INJ, Q6H, Dosing Weight 104.545, kg, PRN Nausea & Vomiting, Start date: 11/27/16 14:00:00 CDT, Duration: 30 day, Stop date: 12/27/16 13:59:00 CDT Notes: (Same as: Reglan) Start Date: 11/27/16 Stop Date: 11/28/16 Status: Discontinuedmisoprostol 1,000 microgram, 5 tab, Route: VT, Drug form: TAB, ONCALL, Dosing Weight 104.545 , kg, Start date: 11/27/16 14:00:00 CDT, Duration: 30 day, Stop date: 12/27/16 13:59:00 CDT Notes: (Same as:Cytotec) Take with food Start Date: 11/27/16 Stop Date: 11/28/16 Status: Discontinuedmorphine Sulfate 2 mg, 0.5 mL, Route: IVP, Drug form: SOLN, Q2H, Dosing Weight 104.545, kg, PRN Pain Score 7-10, Start date: 11/27/16 14:00:00 CDT, Duration: 30 day, Stop date : 12/27/16 13:59:00 CDT Notes: (Same as:MORPhine Sulfate) Start Date: 11/27/16 Stop Date: 11/28/16 Status: Discontinuedmorphine Sulfate 2 mg, 0.5 mL, Route: IVP, Drug form: SOLN, Q4H, Dosing Weight 104.545, kg, PRN Pain Score 7-10, Start date: 11/28/16 17:25:00 CDT, Stop date: 12/28/16 17:24: 00 CDT Notes: (Same as:MORPhine Sulfate) Start Date: 11/28/16 Stop Date: 11/29/16 Status: Discontinuedmorphine Sulfate (ANES) Route: INTRATHECAL, Drug form: INJ, ONCE, Stop date: 11/28/16 9:09:00 CDT Start Date: 11/28/16 Stop Date: 11/28/16 Status: Completednalbuphine 2 mg, 0.2 mL, Route: IVP, Drug form: INJ, Q2H, Dosing Weight 104.545, kg, PRN Itching, Start date: 11/28/16 9:30:00 CDT, Duration: 5 doses or times, Stop date : Limited # of times Notes: (Same As: Nubain) Start Date: 11/28/16 Stop Date: 11/29/16 Status: Discontinuednaloxone 0.1 mg, 0.25 mL, Route: SUB-Q, Drug form: INJ, Q6H, Dosing Weight 104.545, kg, PRN Itching, Start date: 11/28/16 9:30:00 CDT, Duration: 24 hr, Stop date: 11/29 9:29:00 CDT Notes: Same as Narcan Start Date: 11/28/16 Stop Date: 11/29/16 Status: Completednaloxone 0.4 mg, 1 mL, Route: IVP, Drug form: INJ, ONCALL, Dosing Weight 104.545, kg, Start date: 11/28/16 10:00:00 CDT, Duration: 24 hr, Stop date: 11/29/16 9:59:00 CDT Notes: Same as Narcan Start Date: 11/28/16 Stop Date: 11/29/16 Status: Discontinuednaloxone 400 microgram + sodium chloride 0.9% 1000 ml INJ 1, 000 mL 1,000 mL, Rate: 17 microgram/hr, Route: IV, Dosing Weight 104.545 kg, Total Volume: 1,001 mL, PRN itching, Start date: 11/28/16 9:30:00 CDT, Duration: 30 day, Stop date: 12/28/16 9:29:00 CDT Notes: Same as Narcan Start Date: 11/28/16 Stop Date: 11/29/16 Status: Discontinuedondansetron 4 mg, 2 mL, Route: IVP, Drug form: INJ, Q8H, Dosing Weight 104.545, kg, PRN Nausea & Vomiting, Start date: 11/27/16 14:00:00 CDT, Duration: 30 day, Stop date: 12/27/16 13:59:00 CDT Notes: (Same as: Zofran) MEDICATION WASTE Product Size: 4 mgProduct Wasted: ___ mg Start Date: 11/27/16 Stop Date: 11/28/16 Status: Discontinuedondansetron 4 mg, 2 mL, Route: IVP, Drug form: INJ, Q6H, Dosing Weight 104.545, kg, PRN Nausea & Vomiting, Start date: 11/28/16 9:30:00 CDT, Duration: 24 hr, Stop date: 11/29/16 9:29:00 CDT Notes: (Same as: Zofran) MEDICATION WASTE Product Size: 4 mgProduct Wasted: ___ mg Start Date: 11/28/16 Stop Date: 11/29/16 Status: Completedondansetron (ANES) Route: IV, Drug form: INJ, ONCE, Stop date: 11/28/16 9:09:00 CDT Start Date: 11/28/16 Stop Date: 11/28/16 Status: CompletedoxyCODONE 5 mg immediate release 10 mg, 2 tab, Route: PO, Drug form: TAB, Q4H, Dosing Weight 104.545, kg, PRN Pain Score 7-10, Start date: 11/28/16 9:30:00 CDT, Duration: 30 day, Stop date: 12/28/16 9:29:00 CDT Notes: (Same as: Roxicodone) Start Date: 11/28/16 Stop Date: 11/29/16 Status: DiscontinuedoxyCODONE 5 mg immediate release 5 mg, 1 tab, Route: PO, Drug form: TAB, Q4H, Dosing Weight 104.545, kg, PRN Pain Score 4-6, Start date: 11/28/16 9:30:00 CDT, Duration: 30 day, Stop date: 12/28/16 9:29:00 CDT Notes: (Same as: Roxicodone) Start Date: 11/28/16 Stop Date: 11/29/16 Status: Discontinuedoxytocin (ANES) (ANES) Route: IV, Drug form: SOLN, Start date: 11/28/16 8:30:00 CDT, Stop date: 9:30:00 CDT Start Date: 11/28/16 Stop Date: 11/28/16 Status: Completedoxytocin 30 units/NS 500 ml 30 unit 30 unit, 500 mL, Rate: 42 ml/hr, Infuse over: 11.9 hr, Dosing Weight 104.545, kg , Route: IV, Total Volume: 500 mL, Start date: 11/28/16 9:11:00 CDT, Duration: 2 day, Stop date: 11/30/16 9:10:00 CDT, Replace Every: 11.9 hr Start Date: 11/28/16 Stop Date: 11/30/16 Status: Completedoxytocin 30 units/NS 500 ml 30 unit 30 unit, 500 mL, Rate: 42 ml/hr, Infuse over: 11.9 hr, Dosing Weight 104.545, kg , Route: IV, Total Volume: 500 mL, Start date: 11/27/16 14:00:00 CDT, Duration: 1 doses or times, Stop date: 11/28/16 1:53:00 CDT, Replace Every: 11.9 hr Start Date: 11/27/16 Stop Date: 11/28/16 Status: CompletedPhenergan 25 mg, 1 tab, Route: PO, Drug form: TAB, Q4H, Dosing Weight 104.545, kg, PRN Nausea & Vomiting, Priority: NOW, Start date: 11/26/16 19:06:00 CDT, Duration: 30 day, Stop date: 12/26/16 19:05:00 CDT Notes: (Same as: Phenergan) Start Date: 11/26/16 Stop Date: 12/01/16 Status: DiscontinuedPrenatal Multivitamins oral tablet 1 tab, Route: PO, Drug Form: TAB, Dosing Weight 104.545, kg, Daily, Start date: 11/29/16 9:00:00 CDT, Duration: 30 day, Stop date: 12/28/16 9:00:00 CDT Start Date: 11/29/16 Stop Date: 12/01/16 Status: DiscontinuedSaline Flush 0.9% 10 ml, Route: IVP, Drug Form: INJ, Dosing Weight 104.545, kg, PRN, PRN Line Flush, Start date: 11/28/16 9:11:00 CDT, Duration: 30 day, Stop date: 12/28/16 9 :10:00 CDT Notes: (Same as: BD Posiflush) Start Date: 11/28/16 Stop Date: 12/01/16 Status: DiscontinuedSaline Flush 0.9% 10 ml, Route: IVP, Drug Form: INJ, Dosing Weight 104.545, kg, Q12H, Start date: 11/28/16 21:00:00 CDT, Duration: 30 day, Stop date: 12/28/16 9:00:00 CDT Notes: (Same as: BD Posiflush) Start Date: 11/28/16 Stop Date: 12/01/16 Status: Discontinuedsimethicone 160 mg, 2 tab, Route: PO, Drug form: CHEWTAB, Q8H, Dosing Weight 104.545, kg, PRN Gas, Start date: 11/28/16 9:11:00 CDT, Duration: 30 day, Stop date: 9:10:00 CDT Notes: (Same as: Mylicon) Start Date: 11/28/16 Stop Date: 12/01/16 Status: DiscontinuedStadol 2 mg, 1 mL, Route: IVP, Drug form: INJ, Q4H, Dosing Weight 104.545, kg, PRN Pain Score 6-10, Start date: 11/27/16 3:52:00 CDT, Duration: 30 day, Stop date: 12/27/16 3:51:00 CDT Notes: (Same As: Heidi) MEDICATION WASTE Product Size: 2 mgProduct Wasted: ___ mg Start Date: 11/27/16 Stop Date: 12/01/16 Status: DiscontinuedStadol 2 mg, 1 mL, Route: IV, Drug form: INJ, ONCE, Dosing Weight 104.545, kg, Start date: 11/26/16 22:48:00 CDT, Stop date: 11/26/16 22:48:00 CDT Notes: (Same As: Heidi) MEDICATION WASTE Product Size: 2 mgProduct Wasted: ___ mg Start Date: 11/26/16 Stop Date: 11/26/16 Status: Completedterbutaline 0.25 mg, 0.25 mL, Route: SUB-Q, Drug form: INJ, ONCALL, Dosing Weight 104.545, kg, PRN Other -See Comment, Start date: 11/27/16 14:00:00 CDT, Duration: 1 doses or times, Stop date: Limited # of times Notes: DO NOT USE IN ELECTRICAL MAINTENANCE MAN AREA(Same As: Brethine) Start Date: 11/27/16 Stop Date: 11/28/16 Status: Discontinuedtetanus/diphth/pertussis (Tdap) adult/adol 5 units-2 units- 15.5 mcg/0.5 mL intramuscular suspension 0.5 mL, Route: IM, Drug Form: SUSP, Dosing Weight 104.545, kg, ONCALL, Start date: 11/28/16 10:00:00CDT, Duration: 1 doses or times Notes: (Tdap ) For Adolecent and Adult use For IM Use. Same as: Adacel (Tdap) Start Date: 11/28/16 Stop Date: 12/01/16 Status: DiscontinuedTylenol 650 mg, 2 tab, Route: PO, Drug form: TAB, Q6H, Dosing Weight 104.545, kg, PRN Pain Score 1-5, Start date: 11/26/16 14:50:00 CDT, Duration: 30 day, Stop date: 12/26/16 14:49:00 CDT Notes: Do not exceed 4 gm/day. (Same as: Tylenol) Start Date: 11/26/16 Stop Date: 12/01/16 Status: DiscontinuedTylenol PO, 0 Refill(s) Start Date: 11/26/16 Stop Date: 11/30/16 Status: DiscontinuedZofran 4 mg, 2 mL, Route: IVP, Drug form: INJ, Q8H, Dosing Weight 104.545, kg, PRN Nausea, Start date: 11/26/16 14:49:00 CDT, Duration: 30 day, Stop date: 14:48:00 CDT Notes: (Same as: Zofran) MEDICATION WASTE Product Size: 4 mgProduct Wasted: ___ mg Start Date: 11/26/16 Stop Date: 12/01/16 Status: Discontinuedzolpidem 5 mg, 1 tab, Route: PO, Drug form: TAB, Bedtime, Dosing Weight 104.545, kg, PRN Insomnia, Start date: 11/28/16 9:11:00 CDT, Duration: 30 day, Stop date: 9:10:00 CDT Notes: (Same As: Pranavestephania) Start Date: 11/28/16 Stop Date: 12/01/16 Status: Discontinued Results BLOOD BANK RESULTS Most recent to oldest [Reference Range]: 1 2 3 ABO/Rh B POS *Unknown* (11/27/16 3:39 PM) Antibody Scrn Negative (11/27/16 3:39 PM) ELECTROLYTES Most recent to oldest [Reference Range]: 1 2 3 Sodium Lvl [135-145 mEq/L] 136 mEq/L 139 mEq/L (11/27/16 6:36 AM) (11/26/16 1:32 PM) Potassium Lvl [3.5-5.1 mEq/L] 4.0 mEq/L 3.7 mEq/L (11/27/16 6:36 AM) (11/26/16 1:32 PM) Chloride Lvl [95-109 mEq/L] 105 mEq/L 108 mEq/L (11/27/16 6:36 AM) (11/26/16 1:32 PM) CO2 [24-32 mEq/L] 22 mEq/L 24 mEq/L *LOW* (11/26/16 1:32 PM) (11/27/16 6:36 AM) AGAP [10.0-20.0 mEq/L] 13.0 mEq/L 10.7 mEq/L (11/27/16 6:36 AM) (11/26/16 1:32 PM) CHEM PANEL Most recent to oldest 1 2 3 [Reference Range]: Creatinine Lvl [0.50-1.40 0.65 mg/dL 0.57 mg/dL mg/dL] (11/27/16 6:36 AM) (11/26/16 1:32 PM) eGFR 142 mL/min/1.73m2 1 148 mL/min/1.73m2 2 *NA* *NA* (11/27/16 6:36 AM) (11/26/16 1:32 PM) BUN [7-22 mg/dL] 8 mg/dL 6 mg/dL (11/27/16 6:36 AM) *LOW* (11/26/16 1:32 PM) B/C Ratio [6-25] 12 11 (11/27/16 6:36 AM) (11/26/16 1:32 PM) Glucose Lvl [70-99 mg/dL] 129 mg/dL 74 mg/dL *HI* (11/26/16 1:32 PM) (11/27/16 6:36 AM) Total Protein [6.4-8.4 7.2 g/dL 7.1 g/dL g/dL] (11/27/16 6:36 AM) (11/26/16 1:32 PM) Albumin Lvl [3.5-5.0 g/dL] 2.5 g/dL 2.5 g/dL *LOW* *LOW* (11/27/16 6:36 AM) (11/26/16 1:32 PM) Globulin [2.7-4.2 g/dL] 4.7 g/dL 4.6 g/dL *HI* *HI* (11/27/16 6:36 AM) (11/26/16 1:32 PM) A/G Ratio [0.7-1.6] 0.5 0.5 *LOW* *LOW* (11/27/16 6:36 AM) (11/26/16 1:32 PM) Calcium Lvl [8.5-10.5 8.1 mg/dL 8.5 mg/dL mg/dL] *LOW* (11/26/16 1:32 PM) (11/27/16 6:36 AM) Magnesium Lvl [1.8-2.4 3.8 mg/dL 3 5.0 mg/dL 4 5.0 mg/dL 5 mg/dL] *CRIT* *CRIT* *CRIT* (11/29/16 6:47 AM) (11/28/16 2:00 PM) (11/27/16 6:36 AM) Mg Therap (LD) [4.5-7.5 4.1 mg/dL 4.8 mg/dL 4.4 mg/dL mg/dL] *LOW* (11/28/16 7:37 AM) *LOW* (11/28/16 10:45 PM) (11/26/16 8:55 PM) ALT [0-65 unit/L] 14 unit/L 14 unit/L (11/27/16 6:36 AM) (11/26/16 1:32 PM) AST [0-37 unit/L] 15 unit/L 15 unit/L (11/27/16 6:36 AM) (11/26/16 1:32 PM) Alk Phos [39-136 unit/L] 92 unit/L 90 unit/L (11/27/16 6:36 AM) (11/26/16 1:32 PM) Bili Total [0.2-1.3 mg/dL] 0.4 mg/dL 0.4 mg/dL (11/27/16 6:36 AM) (11/26/16 1:32 PM) 1Result Comment: The eGFR is calculated using [...] eGFR should be multiplied by the estimated BMI.2Result Comment: The eGFR is calculated using the CKD-EPI formula. In most young, healthy individualsthe eGFR will be >90 mL/ min/1.73m2. The [...] eGFR should be multiplied by the estimated BMI.3Result Comment: Critical Result(s) called to Jeffery RN at 11/29/2016 07:13 by TROY. Read back OK.4Result Comment: Critical Result(s) called to Carmen Jimenez RN at 11/28/2016 14:52 by_LD. Read back OK.5Result Comment: Critical Result(s) called to lindsay montes de oca RN at 11/27/2016 07:24 by HF. Read back OK.URINE CHEM Most recent to oldest [Reference Range]: 1 2 3 U Creatinine 179.00 mg/dL *NA* (11/27/16 8:31 AM) U Protein 53.9 mg/dL *NA* (11/27/16 8:31 AM) U Prot/Creat 0.3 *NA* (11/27/16 8:31 AM) URINE AND STOOL Most recent to oldest [Reference Range]: 1 2 3 UA Turbidity [Clear] Slight *ABN* (11/26/16 1:03 PM) UA Color [Yellow] Yellow *NA* (11/26/16 1:03 PM) UA pH [5.0-8.0] 6.0 (11/26/16 1:03 PM) UA Spec Grav [<=1.030] 1.020 (11/26/16 1:03 PM) UA Glucose [Negative mg/dL] Negative mg/dL *NA* (11/26/16 1:03 PM) UA Blood [Negative] Negative (11/26/16 1:03 PM) UA Ketones [Negative mg/dL] Negative mg/dL *NA* (11/26/16 1:03 PM) UA Protein [Negative mg/dL] Negative mg/dL (11/26/16 1:03 PM) UA Urobilinogen [0.1-1.0 mg/dL] <=1.0 mg/dL *NA* (11/26/16 1:03 PM) UA Bili [Negative] Negative *NA* (11/26/16 1:03 PM) UA Leuk Est [Negative] Trace *ABN* (11/26/16 1:03 PM) UA Nitrite [Negative] Negative (11/26/16 1:03 PM) UA WBC [0-5 /HPF] 4 /HPF (11/26/16 1:03 PM) UA RBC [0-2 /HPF] <1 /HPF (11/26/16 1:03 PM) UA Bacteria [None Seen /HPF] Occasional /HPF *NA* (11/26/16 1:03 PM) UA Sq Epi [Few /LPF] Moderate /LPF *ABN* (11/26/16 1:03 PM) UA Mucus [None Seen /LPF] Few /LPF *NA* (11/26/16 1:03 PM) IMMUNOLOGY Most recent to oldest [Reference Range]: 1 2 3 Treponemal Scr [Non Reactive] Non Reactive Non Reactive *NA* *NA* (11/27/16 11:54 PM) (11/27/16 3:39 PM) HIV. [Negative] Negative *NA* (11/27/16 11:54 PM) Hep Bs Ag [Negative] Negative *NA* (11/27/16 3:39 PM) HEMATOLOGY Most recent to oldest 1 2 3 [Reference Range]: WBC [3.7-10.4 K/CMM] 7.2 K/CMM 7.1 K/CMM (11/27/16 6:36 AM) (11/26/16 1:32 PM) RBC [4.20-5.40 M/CMM] 4.45 M/CMM 4.51 M/CMM (11/27/16 6:36 AM) (11/26/16 1:32 PM) Hgb [12.0-16.0 g/dL] 7.4 g/dL 9.7 g/dL 10.0 g/dL *LOW* *LOW* *LOW* (11/29/16 6:47 AM) (11/27/16 6:36 AM) (11/26/16 1:32 PM) Hct [36.0-48.0 %] 23.9 % 31.2 % 31.6 % *LOW* *LOW* *LOW* (11/29/16 6:47 AM) (11/27/16 6:36 AM) (11/26/16 1:32 PM) MCV [80.0-98.0 fL] 70.1 fL 70.0 fL *LOW* *LOW* (11/27/16 6:36 AM) (11/26/16 1:32 PM) MCH [27.0-31.0 pg] 21.9 pg 22.1 pg *LOW* *LOW* (11/27/16 6:36 AM) (11/26/16 1:32 PM) MCHC [32.0-36.0 g/dL] 31.2 g/dL 31.6 g/dL *LOW* *LOW* (11/27/16 6:36 AM) (11/26/16 1:32 PM) RDW [11.5-14.5 %] 17.9 % 18.1 % *HI* *HI* (11/27/16 6:36 AM) (11/26/16 1:32 PM) Platelet [133-450 K/CMM] 285 K/CMM 257 K/CMM (11/27/16 6:36 AM) (11/26/16 1:32 PM) MPV [7.4-10.4 fL] 11.4 fL 11.3 fL *HI* *HI* (11/27/16 6:36 AM) (11/26/16 1:32 PM) Segs [45.0-75.0 %] 86.0 % 75.9 % *HI* *HI* (11/27/16 6:36 AM) (11/26/16 1:32 PM) Lymphocytes [20.0-40.0 %] 10.7 % 16.1 % *LOW* *LOW* (11/27/16 6:36 AM) (11/26/16 1:32 PM) Monocytes [2.0-12.0 %] 3.1 % 6.5 % (11/27/16 6:36 AM) (11/26/16 1:32 PM) Eosinophils [0.0-4.0 %] 0.0 % 1.2 % (11/27/16 6:36 AM) (11/26/16 1:32 PM) Basophils [0.0-1.0 %] 0.2 % 0.3 % (11/27/16 6:36 AM) (11/26/16 1:32 PM) Segs-Bands # [1.5-8.1 K/CMM] 6.2 K/CMM 5.4 K/CMM (11/27/16 6:36 AM) (11/26/16 1:32 PM) Lymphocytes # [1.0-5.5 K/CMM] 0.8 K/CMM 1.1 K/CMM *LOW* (11/26/16 1:32 PM) (11/27/16 6:36 AM) Monocytes # [0.0-0.8 K/CMM] 0.2 K/CMM 0.5 K/CMM (11/27/16 6:36 AM) (11/26/16 1:32 PM) Eosinophils # [0.0-0.5 K/CMM] 0.0 K/CMM 0.1 K/CMM (11/27/16 6:36 AM) (11/26/16 1:32 PM) Basophils # [0.0-0.2 K/CMM] 0.0 K/CMM 0.0 K/CMM (11/27/16 6:36 AM) (11/26/16 1:32 PM) Hypochrom [None Seen] 1+ (11/26/16 1:32 PM) Microcyte [None Seen] 2+ *ABN* (11/26/16 1:32 PM) Large Plt slight *NA* (11/26/16 1:32 PM) PT [12.0-14.7 seconds] 14.8 seconds 14.5 seconds *HI* (11/26/16 1:32 PM) (11/27/16 6:36 AM) INR [0.85-1.17] 1.14 1.11 (11/27/16 6:36 AM) (11/26/16 1:32 PM) PTT [22.9-35.8 seconds] 29.2 seconds 30.1 seconds (11/27/16 6:36 AM) (11/26/16 1:32 PM) Immunizations No data available for this section [...] Smoking Cessation Counseling No Assessment and Plan Extracted from: Title: OB Discharge Summary, * Author: Margarita Mckenzie MD Date: 12/01 Discharge Information The patient is 3 day(s) . Delivery date was 11/28/2016 by section. The contraception plan consists of bilateral tubal ligation this admission. Coexisting conditions consist of HTN, superimposed preeclampsia, Twin gestation. Discharge Summary Information : Admitted 11/26/2016, Discharged 12/01/2016. Discharge diagnosis: Twin , dichorionic/diamniotic, third trimester (BCS29-NK O30.043, Working, Medical), Pre-existing hypertension with pre-eclampsia, third trimester (AWB66-LS O11.3, Working, Medical). Discharge Plan Discharge Summary Plan Discharge Status: stable. Discharge disposition: discharge to home. Prescriptions: reviewed with patient, written and given to patient. Follow-up Return to office: in 2 weeks, Prem Wynne MD. cont labetalol for BP - controlled Extracted from: Title: OB Inpatient Progress Note * Author: Margarita Mckenzie MD Date : 11/30/16 POD #2 Impression and Plan POD #2 Doing ok today 1. Cont po pain meds - pt reports ibuprofen allergy so can only take norco/ tylenol - pain control is ok 2. Encourage ambulation,po fluid intake 3. Acute blood loss anemia on chronic anemia - asx, will need iron on discharge 4. Cont PNV 5. Pt has been off magnesium since yesterday, BP doing well, cont labetalol 100mg bid Extracted from: Title: consult at 33 5/7 weeks Author: Katherine Franco NP Date: 11/26/16 Maternal History (ST) Maternal History : 2 Para: 1 SAB: 1 IAB: 0 Maternal Pre-Orin Labs Transcribed ABO Blood Type: B+ Transcribed Substance Abuse: Unknown Transcribed GBS results: Unknown Transcribed HBsAg: Negative Transcribed HIV Status: Negative Transcribed HIV 3rd Trimester: Unknown Transcribed RPR/VDRL Results: Nonreactive Transcribed STD Results: None Maternal Risk Factors Maternal Risk Factors Antepartum: Grand multiparity, Other: chronic hypetension Pediatrix was asked by Dr. Valladares to consult with this mother about the expected hospitalization course of her 33 5/7 week twins. Discussed neurologic , respiratory, GI, and immunologic expectations a t this age. Mother appeared to have a good understanding; had no specific questions at this time. Encouraged her to call if she had any questions later. Thank you for this consult. Extracted from: Title: Clinical Document Author: Brandon Valladares MD Date: 11/26/16 HPI: 26 y/o at 33 5/7 weeks with Twins and CHTN who presents with multiple complaints. She states she has had a headache since last night that is not severe, but has not resolved with Tylenol . She also has had diarrhea since yesterday (a few watery stools/day). She did notice some blood in her stool last night. She is having nausea/vomiting since this morning. She also has had dizziness (off balance) and SOB (mild, gets out of breath easily and can't lay flat) off and on for past 2 weeks. She also is having some cramps since last night ( up to q 10-15 min). She reports good movement, no ROM, no vaginal bleeding, no vision changes or epigastric pain. She denies other complaints. She is on Labetalol 100 mg BID for CHTN. She denies fever, chills, aches or rash. She denies travel to high risk Zika areas or exposure to partner that has traveled to high risk area. PMH: CHTN. PSH: D&C. Allergies: Amoxicillin (hives). Medications: PNV, Fe, Labetalol 100 mg BID. SH: Negative. OB: 1 x SAB. STRIP DEBURRER: Ovarian Cysts. FH: CHTN, DM, Lupus. Review of Systems General: No fever/chills. Skin: No rashes/lesions. Musculoskeletal: No muscle weakness or dificulty walking. Head: No headaches or dizziness. Eyes: No blurry vision, spots. Mouth/Throat: No sores or bleeding from gums. Breasts: No pain or masses. Respiratory: No cough, wheezing or shortness of breath. Cardiovascular: No chest pain, palpitations or irregular heart beats. Gastrointestinal: No difficult swallowing, no nausea, vomiting or diarrhea. Genitourinary: No abnormal vaginal discharge. No dysuria or urinary frequency. Neurologic: Alert and oriented x 3. No headaches. Pshychiatric: No depression or anxiety. No suicidal thoughts. VS: T 98.4 , BP 133/93, 143/89, P 81, R 18 General: No distress. Heart: Regular Rate and Rhythm, no Murmur. Lungs: Bilaterally Clear to Auscultation. Abdomen: Soft, gravid, non-tender. Back: No CVAT. Cervix: 1/80/-3 per nurse exam. Extremeties: No edema, non-tender. FHTs: 140s/140s, moderate variability, no decels noted, irregular contractions noted. Assessment/Plan: 26 y/o at 33 5/7 weeks, Twins, CHTN, Threatened PTL, Possible Viral Syndrome. She is having multiple symptoms. Doubt Superimposed Pre-eclampsia, but will check UA and labs. Since n/v/d probably gastroenteritis. IVF hydration. CXR, EKG and O2 Sat. Consider Mag/Steroids if continues to contract and labs/CXR/EKG reassuring.
--- OUTSIDE RECORDS SUMMARY | 2018-10-04 10:57 | XMS REPORT | Summary of Care ---
:1990 Author Organization [facility] Address [address], [place] [address]- Encounter HQ Encntr_alishilpi(FIN) [id number] Date(s): 09/19/16 - 09/19/16 [facility] [id number] [place] [id number]- Discharge Disposition: Home or Self Care Attending Physician: Prem Wynne MD Admitting Physician: Prem Wynne MD Referring Physician: Prem Wynne MD Vital Signs Most recent to oldest [Reference Range]: 1 Weight 90.909 kg (09/19/16 1:34 PM) Problem List Condition Effective Dates Status Health Status Informant HTN (hypertension)(Confirmed) Active Obesity(Confirmed) Active (Confirmed) 04/04/16 Active Allergies, Adverse Reactions, Alerts Substance Reaction Severity Status amoxicillin Active Medications No data available for this section Results No data available for this section Immunizations No data available for this section Procedures Procedure Date Related Diagnosis Body Site Laparoscopic excision of cyst of right ovary Social History Social History Type Response Alcohol Past Smoking Status Never smoker; Exposure to Tobacco Smoke None; Cigarette Smoking Last 365 Days No; Reg Smoking Cessation Counseling No Assessment and Plan No data available for this section
--- OUTSIDE RECORDS SUMMARY | 2018-10-04 10:57 | XMS REPORT | Summary of Care ---
:1990 Author Organization [facility] Address [address] [place], [place] [address]- Encounter HQ Encntr_alias(FIN) [id number] Date(s): 11/25/16 - 11/25/16 [facility] [id number] [place] [id number]- Discharge Disposition: Home or Self Care Attending [...]
--- OUTSIDE RECORDS SUMMARY | 2018-10-04 10:57 | XMS REPORT | Continuity of Care Document ---
:1990 Author Organization [facility] Address [address] [place] [address] Phone Unavailable Care Team Providers Name Role Phone RAUL OLVERA MD Primary Care Physician Insurance Providers Guarantor Dionne Bedoya Address [address] [place] [address] Email NONE Payer Medicaid Policy Number [id number] Subscriber's Name Dionne Bedoya Relationship Self / Same As Patient Group Number [id number] Group Name NA Advance Directives Directive Response Recorded Date/Time Advance Directives No 10/25/15 10:22pm Advance Directive on File No 03/18/18 11:03am Directive to Physicians/Living Will No 10/25/15 10:22pm Health Care Proxy No 10/25/15 10:22pm Name of Surrogate/Decision Maker NA 03/18/18 11:36am Organ Donor No 10/25/15 10:22pm Medical Power of Brusher Warp No 10/25/15 10:22pm Patient/Family Given Education Material R/T Y - KR...03/18/18 03/18/18 11: 36am Directives? Chief Complaint and Reason for Visit Chief Complaint Headache Reason for Visit Headache Chest pain Problems Medical Problem Onset Date Status Abdominal pain Unknown Acute Acute bronchitis Unknown Acute Dental infection Unknown Acute Threatened in first trimester Unknown Acute Twin Unknown Acute Viral illness Unknown Acute Past Problems Medical Problem Onset Date Status 22 weeks gestation of Unknown Acute Abdominal wall contusion Unknown Acute Chest pain Unknown Acute Dizziness Unknown Acute Fall Unknown Acute Headache Unknown Acute Medications No medication information available. Social History Social History Problem Response Recorded Date/Time Onset Date Status Hx Physical Abuse No 03/18/2018 11:03am Not Applicable Not Applicable Smoking Status Start Date Stop Date Never smoker Hospital Discharge Instructions No hospital discharge instruction information available. Plan of Care Discharge Date 03/18/18 12:50pm Instructions/Education Provided Nonspecific Chest Pain, Onkj-vb-[id number] General Headache Without Cause, Kdtq-rq-Kyzo Forms Provided Portal Welcome Letter Prescriptions See Medication Section Referrals RAUL OLVERA MD Address: [address] [place], [place] [address] Additional Instructions/Education Tylenol number 3 as needed for pain #12 Ibuprofen for mild pain monitor blood pressure twice per day at home and record follow with your PCP this week Return for new or worsening of symptoms Functional Status No functional status information available. Allergies, Adverse Reactions, Alerts Allergen Type Severity Reaction Status Last Updated Amoxicillin ([id number]) Allergy Unknown Active 10/25/15 Penicillins ([id number]) Allergy Unknown RASH Active 10/25/15 Immunizations No immunization information available. Vital Signs Acute Vital Signs Vital Response Date/Time Blood Pressure 146/69 mm Hg 03/18/2018 12:47pm Pulse Pulse Rate (adult) 91 beats per minute (60 - 100) 03/18/2018 12:47pm Respiratory Rate 10 breaths per minute (10 - 24) 03/18/2018 12:47pm Temperature Source Oral 03/18/2018 12:47pm Height 5 ft 4 in 03/18/2018 11:03am Weight 204 lb 03/18/2018 11:03am Body Mass Index 35.0 kg/m^2 03/18/2018 11:03am Results Laboratory Results Test Name Result Units Flags Reference Collection Result Comments Date/Time Date/Time White Blood Count 7.4 K/ul 4.0-11.5 03/18/2018 03/18/2018 11:13am 11:20am Red Blood Count 5.06 M/ul 3.80-5.20 03/18/2018 03/18/2018 11:13am 11:20am Hemoglobin 11.0 g/dl 10.5-15.7 03/18/2018 03/18/2018 11:13am 11:20am Hematocrit 35.0 % 34.0-50.0 03/18/2018 03/18/2018 11:13am 11:20am Mean Corpuscular 69.1 fl L 78-98 03/18/2018 03/18/2018 Volume 11:13am 11:32am Mean Corpuscular 21.7 pg L 26.2-33.4 03/18/2018 03/18/2018 Hemoglobin 11:13am 11:20am Mean Corpuscular 31.4 g/dl L 31.5-36.2 03/18/2018 03/18/2018 Hemoglobin Concent 11:13am 11:20am Red Cell 15.7 % H 11.5-15.5 03/18/2018 03/18/2018 Distribution Width 11:13am 11:20am Platelet Count 343 K/ul H 137-338 03/18/2018 03/18/2018 11:13am 11:20am Mean Platelet 9.2 fl 8.4-11.8 03/18/2018 03/18/2018 Volume 11:13am 11:20am Neutrophils (%) 68.1 % 44.4-80.1 03/18/2018 03/18/2018 (Auto) 11:13am 11:20am Lymphocytes (%) 24.1 % 10.0-50.0 03/18/2018 03/18/2018 (Auto) 11:13am 11:20am Monocytes (%) 5.6 % 3.6-12.04 03/18/2018 03/18/2018 (Auto) 11:13am 11:20am Eosinophils (%) 1.4 % 0.0-5.41 03/18/2018 03/18/2018 (Auto) 11:13am 11:20am Basophils (%) 0.8 % H 0.0-0.79 03/18/2018 03/18/2018 (Auto) 11:13am 11:20am D-Dimer 389 ng/mL <500 03/18/2018 03/18/2018 11:13am 11:54am Prothrombin Time 11.6 SECONDS 10.3-12.3 03/18/2018 03/18/2018 11:13am 12:04pm THERAPEUTIC LEVEL: 1.5 to 1.9 times normal range of PT Prothromb Time 1.06 03/18/2018 03/18/2018 International 11:13am 12:04pm Recommended therapeutic range for patients receiving Ratio warfarin (coumadin) therapy: INR is 2.0 to 3.0 Recommended range for patients with mechanical prosthetic heart valves: INR is 2.5 to 3.5 Activated Partial 32.6 SECONDS 22.5-37.0 03/18/2018 03/18/2018 Thromboplast Time 11:13am 12:04pm Random Glucose 124 mg/dL H 74-106 03/18/2018 03/18/2018 11:13am 11:37am Blood Urea 10 mg/dL 6-20 03/18/2018 03/18/2018 Nitrogen 11:13am 11:37am Serum Osmolality 280 280-300 03/18/2018 03/18/2018 11:13am 11:37am Creatinine 0.7 mg/dL 0.50-0.90 03/18/2018 03/18/2018 11:13am 11:37am Glomerular > 60.00 03/18/2018 03/18/2018 GFR RESULTS ARE REPORTED IN mL/min/1.73m2. Filtration Rate 11:13am 11:37am Calc Normal GFR: >60mL/min Moderately decreased GFR: 30-59 mL/min Severely decreased GFR: 15-29 mL/min Kidney Failure (or Dialysis): <15 mL/min The calculated eGFR is not valid for patients younger than 18 years or older than 75 years. BUN/Creatinine 14.3 12-03/18/2018 03/18/2018 Ratio 11:13am 11:37am Sodium Level 140 mmol/L 135-145 03/18/2018 03/18/2018 11:13am 11:37am Potassium Level 3.6 mmol/L 3.5-5.2 03/18/2018 03/18/2018 11:13am 11:37am Chloride Level 100 mmol/L 98-108 03/18/2018 03/18/2018 11:13am 11:37am Carbon Dioxide 27 mmol/L 21-32 03/18/2018 03/18/2018 Level 11:13am 11:37am Anion Gap 16.6 mEq/L 12-20 03/18/2018 03/18/2018 11:13am 11:37am Calcium Level 9.6 mg/dL 8.6-10.0 03/18/2018 03/18/2018 11:13am 11:37am Total Protein 8.1 g/dL 6.6-8.7 03/18/2018 03/18/2018 11:13am 11:37am Albumin 4.4 g/dL 3.5-5.2 03/18/2018 03/18/2018 11:13am 11:37am Globulin 3.7 gm/dL 03/18/2018 03/18/2018 11:13am 11:37am Albumin/Globulin 1.2 >1.0 03/18/2018 03/18/2018 Ratio 11:13am 11:37am Total Bilirubin 0.6 mg/dL 0.0-1.2 03/18/2018 03/18/2018 11:13am 11:37am Aspartate Amino 15 U/L 15-32 03/18/2018 03/18/2018 Transf (AST/SGOT) 11:13am 11:37am Alanine 10 U/L 0-33 03/18/2018 03/18/2018 Aminotransferase 11:13am 11:37am (ALT/SGPT) LO-Cmx-D-Type 20 pg/mL 0-125 03/18/2018 03/18/2018 Natriuretic 11:13am 11:41am Peptide Total Alkaline 56 U/L 35-105 03/18/2018 03/18/2018 Phosphatase 11:13am 11:37am Creatine Kinase 224 U/L H 20-180 03/18/2018 03/18/2018 11:13am 11:37am Troponin I < 0.30 ng/mL 0.0-0.5 03/18/2018 03/18/2018 11:13am 11:41am Creatine Kinase MB 1.4 ng/ml 0.0-3.6 03/18/2018 03/18/2018 11:13am 11:41am DIAGNOSTIC CITERIA: CKMB CKMB RELATIVE INDEX SUGGESTIVE OF NON-AMI < or=5 N/A REA ZONE (INCONCLUSIVE) > 5 < or=4 SUGGESTIVE OF AMI >5 > 4 Procedures Procedure Status Date Provider(s) X-ray of chest, single view Completed 03/18/18 MUSA MAY ACNP Encounters Encounter Location Arrival/Admit Date Discharge/Depart Date Attending Provider Departed [place] 03/18/18 10:53am 03/18/18 12:50pm [facility] Recent Diagnosis
--- NOTE | 2018-10-04 11:52 | RAD REPORT ---
EXAM DESCRIPTION: RAD - Chest Pa And Lat (2 Views) - 10/04/2018 11:46 am CLINICAL HISTORY: fever, cough Chest pain. COMPARISON: <Comparisons> FINDINGS: The lungs are clear. The heart is normal in size. No displaced fractures. IMPRESSION: No acute or concerning finding suspected.
[2018-10-04] MEDS ORDERED: ONDANSETRON 4 MG (ODT) TAB ONE (11:56)
[2018-10-04] MEDS ORDERED: ACETAMINOPHEN 325 MG TABLET ONE (11:56)
[2018-10-04 12:43] LABS: Urine Blood NEGATIVE (NEG); Urine Glucose NEGATIVE (NEG); Urine Protein 1+ (NEG); Urine Specific Gravity >1.030 (1.005-1.030); Urine pH 5.5 (5.0-7.0)
[2018-10-04] MEDS ORDERED: NA CHLORIDE 0.9% 1,000 ML ONE (12:43)
[2018-10-04 12:45] LABS: Absolute Lymphocytes (CBC) 0.7 K/uL (0.7-4.9); Absolute Monocytes 0.7 K/uL (0.1-1.3); Absolute Neutrophil 4.8 K/uL (1.8-8.0); Basophils % 0.3 % (0-1.3); Eosinophils % 0.8 % (0-4.4); Hematocrit 31.6 % (36.0-45.0); MPV 9.6 fL (7.6-11.3); Monocytes % 10.9 % (3.3-12.3); RBC Red Blood Cell Count 4.73 M/uL (3.86-4.86)
[2018-10-04 13:07] LABS: Albumin 3.7 g/dL (3.4-5.0); Bilirubin Total 0.5 mg/dL (0.2-1.0); Potassium 3.9 mmol/L (3.5-5.1); Protein, Total 8.4 g/dL (6.4-8.2)
[2018-10-04 13:11] LABS: Anisocytosis 1+; Blood Morphology Comment NOTED (NOT SEEN); Hypochromasia 1+; Platelet Estimate ADEQ
--- NOTE | 2018-10-04 14:25 | EDPHYS ---
Physician Documentation [facility] Name: Dionne Bedoya Age: 28 yrs Sex: Female : 1990 Arrival Date: 10/04/2018 Time: 10:53 Bed 12 Private MD: ED Physician Maldonado Roberts HPI: 10/04 11:30 This 28 yrs old Black Female presents to ER via Ambulatory with complaints of Chest jmm Pain, Fever, Cough. 11:30 The patient or guardian reports cough. Onset: The symptoms/episode began/occurred jmm gradually, 3 day(s) ago. Associated signs and symptoms: Pertinent positives: fever, vomiting. This is a 28 year old female with a history of htn that presents to the ED with complaints of cough, congestion, vomiting beginning 3 days ago. Patient denies diarrhea. Patient states she is urinating normally. . 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 - Social history:: Smoking status: Patient/guardian denies using tobacco. - Ebola Screening: : Patient negative for fever greater than or equal to 101.5 degrees Fahrenheit, and additional compatible Ebola Virus Disease symptoms Patient denies exposure to infectious person Patient denies travel to an Ebola-affected area in the 21 days before illness onset No symptoms or risks identified at this time. ROS: 11:30 Cardiovascular: Negative for chest pain, palpitations, and edema. jmm 11:30 Neuro: Negative for headache, weakness, numbness, tingling, and seizure. 11:30 Constitutional: Positive for body aches, chills, fever. 11:30 Respiratory: Positive for cough. 11:30 Abdomen/GI: Positive for vomiting. 11:30 Back: Positive for flank pain, bilaterally. 11:30 All other systems are negative. Exam: 11:30 Constitutional: This is a well developed, well nourished patient who is awake, alert, jmm and in no acute distress. Head/Face: atraumatic. Eyes: EOMI, no conjunctival erythema appreciated 11:30 ENT: Posterior pharynx: erythema, that is mild. 11:30 Neck: ROM/movement: is normal. 11:30 Cardiovascular: Rate: tachycardic, Rhythm: regular. 11:30 Respiratory: the patient does not display signs of respiratory distress, Respirations: normal, Breath sounds: are clear throughout. 11:30 Abdomen/GI: Inspection: abdomen appears normal, Bowel sounds: normal, Palpation: abdomen is soft and non-tender. 11:30 Musculoskeletal/extremity: ROM: intact in all extremities. 11:30 Skin: Appearance: Color: normal in color. 11:30 Neuro: Orientation: is normal, Mentation: is normal, Memory: is normal. 11:30 Psych: Behavior/mood is pleasant, cooperative. Vital Signs: 11:11 BP 153 / 90; Pulse 111; Resp 18 S; Temp 102.0(TE); Pulse Ox 98% on R/A; Weight 95.25 iw kg; Height 5 ft. 4 in. (162.56 cm); Pain 7/10; 13:08 Temp 101.7; iw 13:42 BP 135 / 79; Pulse 101; Resp 16 S; Temp 101.9(O); Pulse Ox 99% on R/A; Pain 8/10; iw 11:11 Body Mass Index 36.05 (95.25 kg, 162.56 cm) iw MDM: 11:14 Patient medically screened. [email or web address] 14:22 Data reviewed: vital signs, nurses notes. Counseling: I had a detailed discussion with martha the patient and/or guardian regarding: the historical points, exam findings, and any diagnostic results supporting the discharge/admit diagnosis, lab results, radiology results, the need for outpatient follow up, to return to the emergency department if symptoms worsen or persist or if there are any questions or concerns that arise at home. ED course: Patient states feeling much better in the ED. Patient is advised to return to the ED if symptoms worsen. Symptoms appear consistent with influenza or a flu like illness. . 10/04 11:28 Order name: Flu; Complete Time: 12:15 [facility] 10/04 12:16 Order name: CBC with Diff [facility] 10/04 12:16 Order name: CMP; Complete Time: 13:09 [facility] 10/04 12:16 Order name: [place] Screen Profile; Complete Time: 13:09 [facility] 10/04 12:25 Order name: Urine Dipstick--Ancillary (enter results); Complete Time: 12:45 bd 10/04 12:25 Order name: Urine --Ancillary (enter results); Complete Time: 12:45 bd 10/04 11:28 Order name: Urine Dipstick-Ancillary (obtain specimen); Complete Time: 12:21 [facility] 10/04 11:28 Order name: Chest Pa And Lat (2 Views) XRAY; Complete Time: 12:15 [facility] 10/04 12:16 Order name: Saline Lock; Complete Time: 12:36 [facility] 10/04 12:56 Order name: US Extremity Venous W Compression [place] [facility] 10/04 13:12 Order name: Manual Differential; Complete Time: 13:21 EDMS Administered Medications: 11:53 Drug: Zofran 4 mg Route: PO; iw 12:15 Drug: Tylenol 650 mg Route: PO; iw 12:35 Drug: NS 0.9% 1000 ml Route: IV; Rate: 1 bolus; Site: right antecubital; iw Disposition: 10/04/18 14:25 Discharged to Home. Impression: Other viral infections of unspecified site. - Condition is Stable. - Discharge Instructions: Viral Respiratory Infection. - Prescriptions for Tamiflu 75 mg Oral Capsule - take 1 tablet by ORAL route every 12 hours for 5 days; 10 tablet. - Medication Reconciliation Form, Thank You Letter, Antibiotic Education, Prescription Opioid Use, Work release form form. - Follow up: Private Physician; When: 2 - 3 days; Reason: Recheck today's complaints, Continuance of care, Re-evaluation by your physician. Signatures: Dispatcher [employer] EDMS Dwayne Deshpande PA PA jmm Williams, Irene, RN RN iw Corrections: (The following items were deleted from the chart) 14:50 14:25 10/04/2018 14:25 Discharged to Home. Impression: Other viral infections of iw unspecified site. Condition is Stable. Forms are Medication Reconciliation Form, Thank You Letter, Antibiotic Education, Prescription Opioid Use. Follow up: Private Physician; When: 2 - 3 days; Reason: Recheck today's complaints, Continuance of care, Re-evaluation by your physician. martha
--- NOTE | 2018-10-04 14:25 | ER ---
Nurse's Notes [facility] Name: Dionne Bedoya Age: 28 yrs Sex: Female : 1990 Arrival Date: 10/04/2018 Time: 10:53 Bed 12 Private MD: Diagnosis: Other viral infections of unspecified site Presentation: 10/04 11:09 Presenting complaint: Patient states: cough, fever, chills, body aches, vomiting X 2.5 iw days, temp 102 at home, tyenol at 0700 but vomited it back up. Transition of care: patient was not received from another setting of care. Onset of symptoms was October 02, 2018. Risk Assessment: Do you want to hurt yourself or someone else? Patient reports no desire to harm self or others. Initial Sepsis Screen: Does the patient meet any 2 criteria? Temp <36.0*C (96.8*F)) or > 38.3*C (100.9*F). HR > 90 bpm. Does the patient have a suspected source of infection? No. Patient's initial sepsis screen is negative. Care prior to arrival:. 11:09 Method Of Arrival: Ambulatory iw 11:09 Acuity: ESMER 3 iw Triage Assessment: 14:00 General: Appears in no apparent distress. Behavior is calm, cooperative. Pain: iw Complains of pain in right leg and left leg. Cardiovascular: Patient's skin is warm and dry. 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 - Social history:: Smoking status: Patient/guardian denies using tobacco. - Ebola Screening: : Patient negative for fever greater than or equal to 101.5 degrees Fahrenheit, and additional compatible Ebola Virus Disease symptoms Patient denies exposure to infectious person Patient denies travel to an Ebola-affected area in the 21 days before illness onset No symptoms or risks identified at this time. Screenin:38 Abuse screen: Denies threats or abuse. Denies injuries from another. Nutritional iw screening: No deficits noted. Tuberculosis screening: No symptoms or risk factors identified. Fall Risk IV access (20 points). Assessment: 12:38 Reassessment: pt states she' still having lower back pain and throbbing pain to BLE, iw leg pain is worse than back pain and has increased since arriving here. 13:42 Reassessment: Patient appears in no apparent distress at this time. Patient and/or iw family updated on plan of care and expected duration. Pain level reassessed. Patient is alert, oriented x 3, equal unlabored respirations, skin warm/dry/pink. Patient states symptoms have not improved. 14:00 Pain: Pain does not radiate. Pain began 1 day ago. iw Vital Signs: 11:11 BP 153 / 90; Pulse 111; Resp 18 S; Temp 102.0(TE); Pulse Ox 98% on R/A; Weight 95.25 iw kg; Height 5 ft. 4 in. (162.56 cm); Pain 7/10; 13:08 Temp 101.7; iw 13:42 BP 135 / 79; Pulse 101; Resp 16 S; Temp 101.9(O); Pulse Ox 99% on R/A; Pain 8/10; iw 11:11 Body Mass Index 36.05 (95.25 kg, 162.56 cm) iw ED Course: 10:53 Patient arrived in ED. tw3 11:04 Dwayne Deshpande PA is PHCP. [facility] 11:04 Maldonado Roberts MD is Attending Physician. [facility] 11:11 Triage completed. iw 11:11 Arm band placed on. iw 11:29 Cathy Cherry, RN is Primary Nurse. iw 11:44 Chest Pa And Lat (2 Views) XRAY In Process Unspecified. EDMS 12:37 Initial lab(s) drawn, by me, sent to lab. Inserted saline lock: 20 gauge in right iw antecubital area, using aseptic technique. Blood collected. Patient maintains SpO2 saturation greater than 95% on room air. 12:40 Patient has correct armband on for positive identification. quality assurance monitor on. Pulse iw ox on. NIBP on. 14:18 US Extremity Venous W Compression Rock In Process Unspecified. EDMS 14:45 No provider procedures requiring assistance completed. IV discontinued, intact, iw bleeding controlled, No redness/swelling at site. Pressure dressing applied. Administered Medications: 11:53 Drug: Zofran 4 mg Route: PO; iw 12:15 Drug: Tylenol 650 mg Route: PO; iw 12:35 Drug: NS 0.9% 1000 ml Route: IV; Rate: 1 bolus; Site: right antecubital; iw Outcome: 14:25 Discharge ordered by . mratha 14:49 Discharged to home ambulatory, with family. iw 14:49 Condition: good 14:49 Discharge instructions given to patient, Instructed on discharge instructions, follow up and referral plans. medication usage, Demonstrated understanding of instructions, follow-up care, medications, Prescriptions given X 1. 14:50 Patient left the ED. iw Signatures: Dispatcher [employer] EDMS Dwayne Deshpande PA PA jmm Williams, Irene, RN RN Elissa Ruiz tw3
--- NOTE | 2018-10-04 14:56 | RAD REPORT ---
EXAM DESCRIPTION: US - Extrem Venous W Compress Rock - 10/04/2018 2:17 pm CLINICAL HISTORY: leg pain Bilateral leg edema and swelling. COMPARISON: <Comparisons> TECHNIQUE: Real-time sonographic interrogation of the left and right lower extremity deep venous sys tems was performed. FINDINGS: Normal compressibility, flow augmentation, phasic flow and spontaneous flow is identified in both the left and right lower extremity deep venous systems. IMPRESSION: No sonographic evidence of left or right lower extremity deep venous thrombosis.
[2018-10-04 16:05] VITALS: BP 135/79; TEMP 101.9; O2SAT 99
== END 2018-10-04 14:50 | disposition home or self-care (01) ==
LOC: ER 10:49
DX: B33.8 Other specified viral diseases (principal); I10 Essential (primary) hypertension; Z88.0 Allergy status to penicillin; Z88.1 Allergy status to other antibiotic agents
CPT/HCPCS: 36415; 71046; 80053; 81003; 81025; 85025; 86308; 87804; 93970; 99285; J7030

== ENCOUNTER 2019-07-07 18:31 | Emergency (ER) | payer OTHER, SELFPAY ==
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
[2019-07-07] MEDS ORDERED: ALBUTEROL 2.5 MG/3 ML NEB SOL ONE (19:32)
--- NOTE | 2019-07-07 19:56 | ER ---
Nurse's Notes [facility] Name: Dionne Bedoya Age: 29 yrs Sex: Female : 1990 Arrival Date: 07/07/2019 Time: 18:33 Bed 14 Private MD: Diagnosis: Acute bronchitis Presentation: 07/07 19:17 Presenting complaint: Patient states: she had had a cough, bad headache and sore throat bb since yesterday. Transition of care: patient was not received from another setting of care. Onset of symptoms was July 06, 2019. Risk Assessment: Do you want to hurt yourself or someone else? Patient reports no desire to harm self or others. Initial Sepsis Screen: Does the patient meet any 2 criteria? No. Patient's initial sepsis screen is negative. Does the patient have a suspected source of infection? No. Patient's initial sepsis screen is negative. Care prior to arrival: None. 19:17 Method Of Arrival: Ambulatory bb 19:17 Acuity: ESMER 4 bb CLIENT SERVICES REPRESENTATIVE: 19:18 LMP 07/02/2019 bb Historical: - Allergies: 19:18 Amoxicillin; bb 19:18 PENICILLINS; bb - Home Meds: 19:18 labetalol 100 mg Oral tab 1 tab 2 times per day [Active]; bb - PMHx: 19:18 Hypertension; urosepsis; bb - PSHx: 19:18 ; bb - Immunization history:: Adult Immunizations up to date, Flu vaccine is not up to date. - Coronavirus screen:: The patient has NOT traveled to [place] in the past 14 days. Proceed with normal triage process as indicated. - Social history:: Smoking status: Patient denies any tobacco usage or history of. Patient/guardian denies using alcohol. - Ebola Screening: : No symptoms or risks identified at this time. Screenin:38 Abuse screen: Denies threats or abuse. Denies injuries from another. Nutritional rr5 screening: No deficits noted. Tuberculosis screening: No symptoms or risk factors identified. Fall Risk None identified. Total Morgan Fall Scale indicates No Risk (0-24 pts). Assessment: 19:25 General: Appears in no apparent distress. uncomfortable, Behavior is calm, cooperative, rr5 appropriate for age. Pain: Complains of pain in head and throat Pain does not radiate. Pain currently is 7 out of 10 on a pain scale. Quality of pain is described as aching, Pain began gradually, Is intermittent. 19:25 Neuro: Level of Consciousness is awake, alert, obeys commands, Oriented to person, rr5 place, time, situation, Reports headache. Cardiovascular: Capillary refill < 3 seconds Patient's skin is warm and dry. Respiratory: Reports cough that is Airway is patent Respiratory effort is even, unlabored, Respiratory pattern is tachypnea. GI: No signs and/or symptoms were reported involving the gastrointestinal system. : No signs and/or symptoms were reported regarding the genitourinary system. EENT: Throat is clear with gag reflex present. Derm: Skin is intact, is healthy with good turgor, Skin temperature is warm. Musculoskeletal: Circulation, motion, and sensation intact. Capillary refill < 3 seconds. 19:25 Respiratory: rr5 20:20 Reassessment: Patient appears in no apparent distress at this time. Patient is alert, rr5 oriented x 3, equal unlabored respirations, skin warm/dry/pink. discharge instruction given and explained without complaints made. Patient states symptoms have improved. Vital Signs: 19:18 BP 144 / 97; Pulse 94; Resp 26 S; Temp 98.7(O); Pulse Ox 98% on R/A; Weight 93.44 kg bb (R); Height 5 ft. 4 in. (162.56 cm) (R); Pain 7/10; 20:00 BP 137 / 91; Pulse 99; Resp 22; Pulse Ox 98% ; rr5 20:18 BP 133 / 81; Pulse 95; Resp 21; Temp 98.2; Pulse Ox 99% ; Pain 5/10; rr5 19:18 Body Mass Index 35.36 (93.44 kg, 162.56 cm) bb ED Course: 18:33 Patient arrived in ED. rg4 18:55 Denise Rosario FNP-C [facility]. snw 18:55 Brian Cameron MD is Attending Physician. snw 19:17 Kj Richardson, IRMA is Primary Nurse. rr5 19:18 Triage completed. bb 19:18 Arm band placed on Patient placed in an exam room, on a stretcher, on pulse oximetry. bb 19:20 Patient has correct armband on for positive identification. Bed in low position. Call rr5 light in reach. 19:20 Pulse ox on. NIBP on. rr5 20:15 No provider procedures requiring assistance completed. Patient did not have IV access rr5 during this emergency room visit. Administered Medications: 19:31 Drug: Albuterol 2.5 mg Route: Inhalation; rr5 20:15 Follow up: Response: No adverse reaction rr5 20:06 Drug: Tylenol 1000 mg Route: PO; rr5 20:18 Follow up: Response: No adverse reaction; Pain is decreased rr5 20:18 Drug: Decadron 8 mg Route: PO; rr5 20:20 Follow up: Response: Medication administered at discharge. rr5 Outcome: 19:56 Discharge ordered by MD. snw 20:15 Discharged to home ambulatory, with family. rr5 20:15 Condition: stable 20:15 Discharge instructions given to patient, Instructed on discharge instructions, follow up and referral plans. medication usage, Demonstrated understanding of instructions, follow-up care, medications, Prescriptions given X 3. 20:18 Patient left the ED. rr5 Signatures: Denise Rosario, MEDICATION ADMINISTRATION PROFESSIONAL-C MEDICATION ADMINISTRATION PROFESSIONAL-Csnw Elva Cho, RN RN Armida Walters4 Kj Richardson, RN RN rr5
--- NOTE | 2019-07-07 19:57 | EDPHYS ---
Physician Documentation [facility] Name: Dionne Bedoya Age: 29 yrs Sex: Female : 1990 Arrival Date: 07/07/2019 Time: 18:33 Bed 14 Private MD: ED Physician Brian Cameron HPI: 07/07 19:28 This 29 yrs old Black Female presents to ER via Ambulatory with complaints of Sore snw Throat, Cough, Fever. 19:28 The patient presents with sore throat. The patient describes throat pain as raw. Onset: snw The symptoms/episode began/occurred suddenly, yesterday. Severity of symptoms: At their worst the symptoms were moderate, severe. Associated signs and symptoms: Pertinent positives: chills, cough, earache, fever, flu-like symptoms, shortness of breath Sore throat vomiting. The patient has experienced a previous episode. The patient has not recently seen a physician. children with URI recently. 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 - Coronavirus screen:: The patient has NOT traveled to [place] in the past 14 days. Proceed with normal triage process as indicated. - Social history:: Smoking status: Patient denies any tobacco usage or history of. Patient/guardian denies using alcohol. - Ebola Screening: : No symptoms or risks identified at this time. ROS: 19:28 Eyes: Negative for injury, pain, redness, and discharge. snw 19:28 Neck: Negative for injury, pain, and swelling, Cardiovascular: Negative for chest pain, palpitations, and edema. 19:28 Back: Negative for injury and pain, : Negative for injury, bleeding, discharge, and swelling, MS/Extremity: Negative for injury and deformity, Skin: Negative for injury, rash, and discoloration, Neuro: Negative for headache, weakness, numbness, tingling, and seizure, Psych: Negative for depression, anxiety, suicide ideation, homicidal ideation, and hallucinations. 19:28 Constitutional: Positive for body aches, fatigue, fever, malaise. 19:28 ENT: Positive for ear pain, sinus congestion. 19:28 Respiratory: Positive for cough, shortness of breath. 19:28 Abdomen/GI: Positive for nausea, vomiting. Exam: 19:25 Head/Face: Normocephalic, atraumatic. Eyes: Pupils equal round and reactive to light, snw extra-ocular motions intact. Lids and lashes normal. Conjunctiva and sclera are non-icteric and not injected. Cornea within normal limits. Periorbital areas with no swelling, redness, or edema. ENT: Nares patent. No nasal discharge, no septal abnormalities noted. Tympanic membranes are normal and external auditory canals are clear. Oropharynx with no redness, swelling, or masses, exudates, or evidence of obstruction, uvula midline. Mucous membranes moist. Neck: Trachea midline, no thyromegaly or masses palpated, and no cervical lymphadenopathy. Supple, full range of motion without nuchal rigidity, or vertebral point tenderness. No Meningismus. Chest/axilla: Normal chest wall appearance and motion. Nontender with no deformity. No lesions are appreciated. 19:25 Abdomen/GI: Soft, non-tender, with normal bowel sounds. No distension or tympany. No guarding or rebound. No evidence of tenderness throughout. Back: No spinal tenderness. No costovertebral tenderness. Full range of motion. Skin: Warm, dry with normal turgor. Normal color with no rashes, no lesions, and no evidence of cellulitis. MS/ Extremity: Pulses equal, no cyanosis. Neurovascular intact. Full, normal range of motion. Neuro: Awake and alert, GCS 15, oriented to person, place, time, and situation. Cranial nerves II-XII grossly intact. Motor strength 5/5 in all extremities. Sensory grossly intact. Cerebellar exam normal. Normal gait. Psych: Awake, alert, with orientation to person, place and time. Behavior, mood, and affect are within normal limits. 19:25 Constitutional: The patient appears alert, awake, febrile. 19:25 Cardiovascular: Rate: tachycardic, Rhythm: regular, Heart sounds: normal. 19:25 Respiratory: the patient does not display signs of respiratory distress, Respirations: accessory muscle usage, shallow respirations, tachypnea, Breath sounds: bronchial sounds, that are moderate, decreased breath sounds, bronchitic cough. Vital Signs: 19:18 BP 144 / 97; Pulse 94; Resp 26 S; Temp 98.7(O); Pulse Ox 98% on R/A; Weight 93.44 kg bb (R); Height 5 ft. 4 in. (162.56 cm) (R); Pain 7/10; 20:00 BP 137 / 91; Pulse 99; Resp 22; Pulse Ox 98% ; rr5 20:18 BP 133 / 81; Pulse 95; Resp 21; Temp 98.2; Pulse Ox 99% ; Pain 5/10; rr5 19:18 Body Mass Index 35.36 (93.44 kg, 162.56 cm) bb MDM: 19:21 Patient medically screened. snw 19:57 Data reviewed: vital signs, nurses notes. Data interpreted: Pulse oximetry: on room air snw is 98 %. Interpretation: normal. Counseling: I had a detailed discussion with the patient and/or guardian regarding: the historical points, exam findings, and any diagnostic results supporting the discharge/admit diagnosis, the presence of at least one elevated blood pressure reading (>120/80) during this emergency department visit, lab results, the need for outpatient follow up, to return to the emergency department if symptoms worsen or persist or if there are any questions or concerns that arise at home. Special discussion: I have referred the patient to see his PCP for further evaluation of high blood pressure. Based on the history and exam findings, there is no indication for further emergent testing or inpatient evaluation. I discussed with the patient/guardian the need to see the primary care provider for further evaluation of the symptoms. 07/07 18:55 Order name: Flu; Complete Time: 19:55 snw 07/07 18:55 Order name: Strep; Complete Time: 19:47 snw 07/07 19:58 Order name: Throat Culture EDMS Administered Medications: 19:31 Drug: Albuterol 2.5 mg Route: Inhalation; rr5 20:15 Follow up: Response: No adverse reaction rr5 20:06 Drug: Tylenol 1000 mg Route: PO; rr5 20:18 Follow up: Response: No adverse reaction; Pain is decreased rr5 20:18 Drug: Decadron 8 mg Route: PO; rr5 20:20 Follow up: Response: Medication administered at discharge. rr5 Disposition: 07/07/19 19:56 Discharged to Home. Impression: Acute bronchitis. - Condition is Stable. - Discharge Instructions: Acute Bronchitis, Adult, Fever, Adult, Hypertension, Cough, Adult, Rehydration, Adult. - Prescriptions for Tessalon Perles 100 mg Oral Capsule - take 1 capsule by ORAL route every 8 hours As needed; 15 capsule. Albuterol Sulfate 90 mcg/actuation - inhale 1-2 puff by INHALATION route every 4-6 hours; 1 Inhaler. promethazine 25 mg Oral Tablet - take 1 tablet by ORAL route every 6 hours As needed; 20 tablet. - Work release form, Medication Reconciliation Form, Thank You Letter, Antibiotic Education, Prescription Opioid Use form. - Follow up: Emergency Department; When: As needed; Reason: Worsening of condition. Follow up: Private Physician; When: 2 - 3 days; Reason: Recheck today's complaints, Continuance of care, Re-evaluation by your physician. Addendum: 07/10/2019 07:13 Co-signature as Attending Physician, Brian Cameron MD. r n Signatures: Dispatcher [employer] EDMS Denise Rosario, CHEMICAL TECHNICIAN-C CHEMICAL TECHNICIAN-Csnw Elva Cho RN Brian Spring MD MD rn Roque, Raymond, RN RN rr5 Corrections: (The following items were deleted from the chart) 07/07 20:18 19:56 07/07/2019 19:56 Discharged to Home. Impression: Acute bronchitis. Condition is rr5 Stable. Forms are Medication Reconciliation Form, Thank You Letter, Antibiotic Education, Prescription Opioid Use. Follow up: Emergency Department; When: As needed; Reason: Worsening of condition. Follow up: Private Physician; When: 2 - 3 days; Reason: Recheck today's complaints, Continuance of care, Re-evaluation by your physician. snw
[2019-07-07] MEDS ORDERED: ACETAMINOPHEN 500 MG TAB ONE (19:58)
[2019-07-07] MEDS ORDERED: dexAMETHasone 4 MG TAB ONE (20:15)
[2019-07-07 22:39] VITALS: BP 137/91; O2SAT 98
== END 2019-07-07 20:18 | disposition home or self-care (01) ==
LOC: ER 18:31
DX: J20.9 Acute bronchitis, unspecified (principal); Z88.0 Allergy status to penicillin; Z88.1 Allergy status to other antibiotic agents; I10 Essential (primary) hypertension
CPT/HCPCS: 87070; 87081; 87804 ×2; 99284; J8540

== ENCOUNTER 2022-01-13 00:12 | Emergency (ER) | payer BC, OTHER ==
--- OUTSIDE RECORDS SUMMARY | 2022-01-13 00:20 | XMS REPORT | Continuity of Care Document ---
:1990 Author Organization [facility] t Address [address] [place] [place] [address] Support Name Relationship Address Phone [place] [address] XU GALAVIZ OR Unavailable ZHEN GALAVIZ [address] [place] [address] ZHEN ABARCA JOE [phone] 371 [place] [address] WADE EM, RAUL Frank Primary Care Physician [address] [place] [address] [facility]ALA EM, [facility] [address] [phone] [place] [address] AROLDO GALAVIZ Next of Kin [address] [place] [address] BUBBA FARRELL MD O Emergency Provider [address] [place] [address] MARIO YUN PRODUCTION DISPATCHER-C Primary Care Physician [address] + [place] [address] MD NIKHIL WOODARD Emergency Provider [address] [place] [address] MD EVAN VILLANUEVA JR Admitting Provider [address] [facility] HILARIO [address] [place] [address] ANASTACIAPAUL Goncalves Sibling [address] [place] [address] MD REFUGIO MARTIN Emergency Provider [address] [facility] [phone] [place] [phone] Nilsa Downey Parent Unavailable Care Team Providers Name Role Phone Oly BETANCOURT, Dilia Primary Care Physician Nayely Abbott LVN Attending Clinician Unavailable Oly_Stacy Attending Clinician Unavailable Johnathan Shah MD Attending Clinician Sandhya Bletre MA Attending Clinician Unavailable LISHA Attending Clinician Unavailable JAIME Attending Clinician Unavailable CIARA ALFONSO Attending Clinician Unavailable IHDE_G Attending Clinician Unavailable Oly_Stacy Admitting Clinician Unavailable MARIBEL_KATHRYN Admitting Clinician Unavailable JAIME Admitting Clinician Unavailable IHDE_G Admitting Clinician Unavailable Payers Payer Name Policy Type Policy Number Effective Date Expiration Date Idalia barron [place] [id number] 2021 AD[place]ANT[place] (H[place]) 00:00:[place] [id number] 2020 [place] (PPO) 00:00:00 Problems Condition Condition Condition Status Onset Resolution Last Treating Co mments Source Name Details Category Date Date Treatment Clinician Date Anemia Anemia Problem Active 2019-05 [facility] 00:[facility] 00 Group Hypertensi Hypertensi Problem Active 2019-05 [facility] ve ve 2-02 da disorder Disorder 00:00: Medica l 00 Group Asthma Asthma Problem Active 2019-05 [facility]02 da 00:00: Medical 00 Group No known No known Disease Metho di active active st problems problems Hospit a l Allergies, Adverse Reactions, Alerts Allergy Allergy Status Severity Reaction(s) Onset Inactive Treating Comm ents Source Name Type Date Date Clinician Penicill Propensi Active Swelling Meth jay ins ty to [address] adverse 00:00: Hospita reaction 00 l s to drug PENICILL Allergy Active Moderate Rash [facility] INS to da substanc Medical e Group Family History Family Member Diagnosis Comments Start Date Stop Date Source Natural father Diabetes [facility] Maternal grandmother Stroke [facility] Natural mother Cancer [facility] Paternal grandmother Cancer [facility] Social History Social Habit Start Date Stop Date Quantity Comments Source Alcohol intake 2021-11-12 2021-11-12 Ex-drinker [facility] (finding[facility] Hospital Tobacco use and 2021-10-31 2021-10-31 Smokeless tobacco [facility] exposure 00:00:00 00:00:00 non-user Hospital Sex Assigned At [birth year] [facility] 00[facility] Smoking Status Start Date Stop Date Source Never smoked tobacco [facility] Medications Ordered Filled Start Stop Current Ordering Indication Dosage Frequency Signature Comments Components Source Medication Medication Date Date Medication? Clinician (SIG) Name Name clonIDINE Yes 1{patch Q7D Place 1 [facility] (CATAPRES-T 6-27 } patch on st TS) 0.1 10:46: the skin Hospit a mg/24 hr 48 once a l week. losartan-hy Yes 1{tbl} QD Take 1 [facility] drochloroth 6-[address] iazide 10:46: mouth Hospita (HYZAAR) 48 daily. l 100-12.5 mg per tablet potassium Yes 20meq Q.5D Take 20 Meth jay chloride 6-[address] (KLOR-CON) 10:46: mouth 2 Hosp mario 20 mEq 48 (two) l packet times a day. traMADoL [place] [address]13 50mg Q6H Take 50 mg [facility] (ULTRAM) 50 6-[address] mg tablet 10:46: every 6 Hospi ta 48 (six) l hours as needed for moderate pain .acute pain. meloxicam 2021- No 15mg QD Take 1 [facility] di (Mobic) 15 6-27 07-28 tablet (15 st mg tablet 00:00: 04:59 mg total) Ho spita 00 :00 by mouth l daily for 30 doses. albuterol Yes albuterol [facility] (ACCUNEB) 3-[address] 2.5 mg /3 00:00: 2.5 mg/3 Hosp [facility] mL (0.083 00 mL (0.083 l %) %) nebulizer solution solution for nebulizati on USE (1 VIAL) 3 ML EVERY 4 HOURS BY NEBULIZATI ON ROUTE NEEDED FOR 14 DAYS. losartan losartan No losartan [facility] 100 100 100 da mg-hydrochl mg-hydrochl mg-hydroch [facility] orothiazide orothiazide lorothiazi al 25 mg 25 mg de 25 mg Health tablet TAKE tablet TAKE tablet Outreac ONE (1) ONE (1) TAKE ONE h TABLET(S) TABLET(S) (1) Progr am BY MOUTH BY MOUTH TABLET(S) DAILY. DAILY. BY MOUTH DAILY. metoprolol metoprolol No metoprolol [facility] succinate succinate succinate da ER 25 mg ER 25 mg ER 25 mg Epi scop tablet,exte tablet,exte tablet,ext al nded nded ended Health release 24 release 24 release 24 [facility]re[facility] hr TAKE ONE hr TAKE ONE hr TAKE h (1) (1) ONE (1) Program TABLET(S) TABLET(S) TABLET(S) BY MOUTH BY MOUTH BY MOUTH ONCE A DAY. ONCE A DAY. ONCE A DAY. naproxen naproxen No naproxen [facility] 500 mg 500 mg 500 mg da tablet TAKE tablet TAKE tablet [facility] ONE (1) ONE (1) TAKE ONE al TABLET(S) TABLET(S) (1) Healt h BY MOUTH BY MOUTH TABLET(S) Ou treac EVERY EVERY BY MOUTH h TWELVE TWELVE EVERY Program HOURS HOURS TWELVE NEEDED. NEEDED. HOURS NEEDED. ondansetron ondansetron No ondansetro [facility] HCl 4 mg HCl 4 mg n HCl 4 mg d a tablet TAKE tablet TAKE tablet [facility] ONE (1) ONE (1) TAKE ONE al TABLET(S) TABLET(S) (1) Healt h BY MOUTH BY MOUTH TABLET(S) Ou treac EVERY SIX EVERY SIX BY MOUTH h HOURS HOURS EVERY SIX Pr ogram NEEDED FOR NEEDED FOR HOURS NAUSEA AND NAUSEA AND NEEDED FOR VOMITING. VOMITING. NAUSEA AND VOMITING. tramadol 50 tramadol 50 No tramadol [facility] mg tablet mg tablet 50 mg da TAKE ONE TAKE ONE tablet [facility] (1) (1) TAKE ONE al TABLET(S) TABLET(S) (1) Healt h BY MOUTH BY MOUTH TABLET(S) Ou treac EVERY SIX EVERY SIX BY MOUTH h HOURS HOURS EVERY SIX Pr ogram NEEDED FOR NEEDED FOR HOURS PAIN. PAIN. NEEDED FOR PAIN. albuterol albuterol No albuterol [facility] sulfate HFA sulfate HFA sulfate da 90 90 HFA 90 Medical mcg/actuati mcg/actuati mcg/actuat Group on aerosol on aerosol ion inhaler inhaler aerosol INHALE TWO INHALE TWO inhaler (2) PUFF(S) (2) PUFF(S) INHALE TWO BY MOUTH BY MOUTH (2) EVERY 4 EVERY 4 PUFF(S) BY HOURS HOURS MOUTH NEEDED. NEEDED. EVERY 4 HOURS NEEDED. buspirone buspirone No buspirone [facility] 10 mg 10 mg 10 mg da tablet TAKE tablet TAKE tablet Medical ONE (1) ONE (1) TAKE ONE Group TABLET(S) TABLET(S) (1) BY MOUTH BY MOUTH TABLET(S) TWICE A TWICE A BY MOUTH DAY. DAY. TWICE A DAY. clonidine clonidine No clonidine [facility] HCl 0.1 mg HCl 0.1 mg HCl 0.1 mg da tablet TAKE tablet TAKE tablet Medical ONE (1) ONE (1) TAKE ONE Group TABLET TABLET (1) TABLET THREE TIMES THREE TIMES THREE A DAY BY A DAY BY TIMES A ORAL ROUTE ORAL ROUTE DAY BY NEEDED NEEDED ORAL ROUTE FOR 90 FOR 90 NEEDED DAYS. DAYS. FOR 90 DAYS. esomeprazol esomeprazol No esomeprazo [facility] e magnesium e magnesium le d a 20 mg 20 mg magnesium Medical capsule,del capsule,del 20 mg Group ayed ayed capsule,de release release layed TAKE 1 TAKE 1 release CAPSULE CAPSULE TAKE 1 EVERY DAY EVERY DAY CAPSULE BY ORAL BY ORAL EVERY DAY ROUTE FOR ROUTE FOR BY ORAL 14 DAYS. 14 DAYS. ROUTE FOR 14 DAYS. ibuprofen ibuprofen No ibuprofen [facility] 800 mg 800 mg 800 mg da tablet TAKE tablet TAKE tablet Medical ONE (1) ONE (1) TAKE ONE Group TABLET(S) TABLET(S) (1) BY MOUTH BY MOUTH TABLET(S) EVERY SIX EVERY SIX BY MOUTH HOURS HOURS EVERY SIX NEEDED FOR NEEDED FOR HOURS PAIN. PAIN. NEEDED FOR PAIN. levofloxaci levofloxaci No levofloxac [facility] n 500 mg n 500 mg in 500 mg da tablet TAKE tablet TAKE tablet Medical 1 TABLET 1 TABLET TAKE 1 Group EVERY 24 EVERY 24 TABLET HOURS BY HOURS BY EVERY 24 ORAL ROUTE ORAL ROUTE HOURS BY FOR 5 DAYS. FOR 5 DAYS. ORAL ROUTE FOR 5 DAYS. losartan losartan No losartan [facility] 100 100 100 da mg-hydrochl mg-hydrochl mg-hydroch Medical orothiazide orothiazide lorothiazi Group 25 mg 25 mg de 25 mg tablet TAKE tablet TAKE tablet ONE (1) ONE (1) TAKE ONE TABLET(S) TABLET(S) (1) BY MOUTH BY MOUTH TABLET(S) DAILY. DAILY. BY MOUTH DAILY. meloxicam meloxicam No meloxicam [facility] 50mg once 50mg once 50mg once da daily daily daily Medical Group methylpredn methylpredn No methylpred [facility] isolone 4 isolone 4 nisolone 4 da mg tablets mg tablets mg tablets Medical in a dose in a dose in a dose Group pack TAKE pack TAKE pack TAKE BY MOUTH BY MOUTH BY MOUTH DIRECTED ON DIRECTED ON PACKAGE. PACKAGE. DIRECTED ON PACKAGE. metronidazo metronidazo No metronidaz [facility] le 500 mg le 500 mg ole 500 mg da tablet TAKE tablet TAKE tablet Medical 1 TABLET 1 TABLET TAKE 1 Group EVERY 8 EVERY 8 TABLET HOURS BY HOURS BY EVERY 8 ORAL ROUTE ORAL ROUTE HOURS BY FOR 7 DAYS. FOR 7 DAYS. ORAL ROUTE FOR 7 DAYS. potassium potassium No potassium [facility] chloride ER chloride ER chloride da 10 mEq 10 mEq ER 10 mEq Medica l tablet,exte tablet,exte tablet,ext Group nded nded ended release release release TAKE ONE TAKE ONE TAKE ONE (1) TABLET (1) TABLET (1) TABLET EVERY DAY EVERY DAY EVERY DAY BY ORAL BY ORAL BY ORAL ROUTE. ROUTE. ROUTE. acetaminoph acetaminoph No acetaminop [facility] en 300 en 300 hen 300 da mg-codeine mg-codeine mg-codeine [facility] 30 mg 30 mg 30 mg al tablet TAKE tablet TAKE tablet Health ONE (1) ONE (1) TAKE ONE Outre ac TABLET(S) TABLET(S) (1) h BY MOUTH BY MOUTH TABLET(S) Pr ogram EVERY SIX EVERY SIX BY MOUTH HOURS HOURS EVERY SIX NEEDED FOR NEEDED FOR HOURS PAIN. PAIN. NEEDED FOR PAIN. albuterol albuterol No albuterol [facility] sulfate HFA sulfate HFA sulfate da 90 90 HFA 90 [facility] mcg/actuati mcg/actuati mcg/actuat al on aerosol on aerosol ion Hea lth inhaler inhaler aerosol Outrea c INHALE TWO INHALE TWO inhaler h (2) PUFF(S) (2) PUFF(S) INHALE TWO Program BY MOUTH BY MOUTH (2) EVERY 4 EVERY 4 PUFF(S) BY HOURS HOURS MOUTH NEEDED. NEEDED. EVERY 4 HOURS NEEDED. buspirone buspirone No buspirone [facility] 10 mg 10 mg 10 mg da tablet TAKE tablet TAKE tablet [facility] ONE (1) ONE (1) TAKE ONE al TABLET(S) TABLET(S) (1) Healt h BY MOUTH BY MOUTH TABLET(S) [facility]u [facility] TWICE A TWICE A BY MOUTH h DAY. DAY. TWICE A Program DAY. clindamycin clindamycin No clindamyci [facility] HCl 150 mg HCl 150 mg n HCl 150 da capsule capsule mg capsule Epi scop TAKE ONE TAKE ONE TAKE ONE al (1) (1) (1) Health CAPSULE(S) CAPSULE(S) CAPSULE(S) [facility] BY MOUTH BY MOUTH BY MOUTH h FOUR TIMES FOUR TIMES FOUR TIMES Program A DAY. A DAY. A DAY. clonidine clonidine No clonidine [facility] HCl 0.1 mg HCl 0.1 mg HCl 0.1 mg da tablet TAKE tablet TAKE tablet [facility] ONE (1) ONE (1) TAKE ONE al TABLET TABLET (1) TABLET Healt h TWICE A DAY TWICE A DAY TWICE A [facility] BY ORAL BY ORAL DAY BY h ROUTE ROUTE ORAL ROUTE P rogram NEEDED FOR NEEDED FOR NEEDED 30 DAYS. 30 DAYS. FOR 30 DAYS. cyclobenzap cyclobenzap No cyclobenza [facility] rine 10 mg rine 10 mg guanaco 10 da tablet TAKE tablet TAKE mg tablet [facility] ONE (1) ONE (1) TAKE ONE al TABLET(S) TABLET(S) (1) Healt h BY MOUTH BY MOUTH TABLET(S) Ou treac ONCE A DAY ONCE A DAY BY MOUTH h AT BEDTIME AT BEDTIME ONCE A DAY Program FOR MUSCLE FOR MUSCLE AT BEDTIME SPASMS. SPASMS. FOR MUSCLE SPASMS. diltiazem diltiazem No diltiazem [facility] CD 240 mg CD 240 mg CD 240 mg da capsule,ext capsule,ext capsule,ex [facility] ended ended tended al release 24 release 24 release 24 Health hr TAKE ONE hr TAKE ONE hr TAKE Outreac (1) (1) ONE (1) h CAPSULE(S) CAPSULE(S) CAPSULE(S) Program BY MOUTH BY MOUTH BY MOUTH ONCE A DAY. ONCE A DAY. ONCE A DAY. famotidine famotidine No famotidine [facility] 20 mg 20 mg 20 mg da tablet TAKE tablet TAKE tablet [facility] ONE (1) ONE (1) TAKE ONE al TABLET(S) TABLET(S) (1) Healt h BY MOUTH BY MOUTH TABLET(S) Ou treac TWICE A DAY TWICE A DAY BY MOUTH h FOR ACID FOR ACID TWICE A Prog gayathri REFLUX. REFLUX. DAY FOR ACID REFLUX. FeroSul 325 FeroSul 325 No FeroSul [facility] mg (65 mg mg (65 mg 325 mg (65 da iron) iron) mg iron) [facility] tablet TAKE tablet TAKE tablet al ONE (1) ONE (1) TAKE ONE Healt h TABLET(S) TABLET(S) (1) Outre ac BY MOUTH BY MOUTH TABLET(S) h TWICE A TWICE A BY MOUTH Progr am DAY. DAY. TWICE A DAY. hydrocodone hydrocodone No hydrocodon [facility] 10 10 e 10 da mg-acetamin mg-acetamin mg-acetami [facility] ophen 325 ophen 325 nophen 325 al mg tablet mg tablet mg tablet Health TAKE ONE TAKE ONE TAKE ONE Out reac (1) (1) (1) h TABLET(S) TABLET(S) TABLET(S) Program BY MOUTH BY MOUTH BY MOUTH FOUR TIMES FOUR TIMES FOUR TIMES A DAY A DAY A DAY NEEDED FOR NEEDED FOR NEEDED FOR PAIN . MAX PAIN . MAX PAIN . MAX DAILY DOSE DAILY DOSE DAILY DOSE OF 4 OF 4 OF 4 TABLETS. TABLETS. TABLETS. hyoscyamine hyoscyamine No hyoscyamin [facility] 0.125 mg 0.125 mg e 0.125 mg d a disintegrat disintegrat disintegra [facility] ing tablet ing tablet ting al DISSOLVE DISSOLVE tablet Healt h ONE (1) ONE (1) DISSOLVE Outre ac TABLET(S) TABLET(S) ONE (1) h BY MOUTH BY MOUTH TABLET(S) Pr ogram EVERY FOUR EVERY FOUR BY MOUTH HOURS HOURS EVERY FOUR NEEDED. NEEDED. HOURS NEEDED. ibuprofen ibuprofen No ibuprofen [facility] 600 mg 600 mg 600 mg da tablet TAKE tablet TAKE tablet [facility] ONE (1) ONE (1) TAKE ONE al TABLET(S) TABLET(S) (1) Healt h BY MOUTH BY MOUTH TABLET(S) O[facility] treac EVERY SIX EVERY SIX BY MOUTH h HOURS HOURS EVERY SIX Pr ogram NEEDED FOR NEEDED FOR HOURS PAIN. PAIN. NEEDED FOR PAIN. ibuprofen ibuprofen No ibuprofen [facility] 800 mg 800 mg 800 mg da tablet TAKE tablet TAKE tablet [facility] ONE (1) ONE (1) TAKE ONE al TABLET(S) TABLET(S) (1) Healt h BY MOUTH BY MOUTH TABLET(S) Ou treac THREE TIMES THREE TIMES BY MOUTH h A DAY FOR A DAY FOR THREE Prog gayathri PAIN. PAIN. TIMES A DAY FOR PAIN. labetalol labetalol No labetalol [facility] 100 mg 100 mg 100 mg da tablet TAKE tablet TAKE tablet [facility] ONE (1) ONE (1) TAKE ONE al TABLET(S) TABLET(S) (1) Healt h BY MOUTH BY MOUTH TABLET(S) [facility] TWICE A TWICE A BY MOUTH h DAY. DAY. TWICE A Program DAY. Immunizations Ordered Immunization Filled Immunization Date Status Commen ts Source Name Name COVID-19, mRNA, COVID-19, mRNA, 2020-08-25 Completed Marks jovany LNP-S, PF, 100 LNP-S, PF, 100 12:38:27 [facility] mcg/0.5 mL dose mcg/0.5 mL dose Outr each Program COVID-19, mRNA, COVID-19, mRNA, 2020-08-25 Completed Marks jovany LNP-S, PF, 100 LNP-S, PF, 100 00:00:00 Medica l Group mcg/0.5 mL dose mcg/0.5 mL dose (Moderna) (Moderna) COVID-19, mRNA, COVID-19, mRNA, 2020-07-27 Completed Marks jovany LNP-S, PF, 100 LNP-S, PF, 100 16:47:43 [facility] mcg/0.5 mL dose mcg/0.5 mL dose Outr each Program COVID-19, mRNA, COVID-19, mRNA, 2020-07-27 Completed Marks jovany LNP-S, PF, 100 LNP-S, PF, 100 00:00:00 Medica l Group mcg/0.5 mL dose mcg/0.5 mL dose (Moderna) (Moderna) Vital Signs Vital Name Observation Time Observation Value Comments Source BP Diastolic 2021-12-21 00:00:00 85 mm[Hg] [facility] Height 2021-12-21 00:00:00 64 [in_i] [facility] BMI (Body Mass 2021-12-21 00:00:00 41.3 kg/m2 [facility] BP Systolic 2021-12-21 00:00:00 120 mm[Hg] [facility] Body Weight 2021-12-21 00:00:00 3848 [oz_av] [facility] BP Diastolic 2021-12-18 00:00:00 95 mm[Hg] [facility] Height 2021-12-18 00:00:00 64 [in_i] [facility] BMI (Body Mass 2021-12-18 00:00:00 41.9 kg/m2 [facility] BP Systolic 2021-12-18 00:00:00 150 mm[Hg] [facility] Body Weight 2021-12-18 00:00:00 3904 [oz_av] [facility] BP Diastolic 2021-11-23 00:00:00 96 mm[Hg] [facility] Height 2021-11-23 00:00:00 64 [in_i] [facility] BMI (Body Mass 2021-11-23 00:00:00 41.7 kg/m2 [facility] BP Systolic 2021-11-23 00:00:00 143 mm[Hg] [facility] Body Weight 2021-11-23 00:00:00 3883.2 [oz_av] [facility] BP Diastolic 2021-09-27 00:00:00 97 mm[Hg] [facility] Height 2021-09-27 00:00:00 64 [in_i] [facility] BMI (Body Mass 2021-09-27 00:00:00 42.7 kg/m2 [facility] BP Systolic 2021-09-27 00:00:00 149 mm[Hg] [facility] Body Weight 2021-09-27 00:00:00 3979.2 [oz_av] [facility] BP Diastolic 2021-06-15 00:00:00 87 mm[Hg] [facility] Height 2021-06-15 00:00:00 64 [in_i] [facility] BMI (Body Mass 2021-06-15 00:00:00 42.3 kg/m2 [facility] BP Systolic 2021-06-15 00:00:00 123 mm[Hg] [facility] Body Weight 2021-06-15 00:00:00 3940.8 [oz_av] [facility] BP Diastolic 2021-04-24 00:00:00 93 mm[Hg] [facility] Height 2021-04-24 00:00:00 64 [in_i] [facility] BMI (Body Mass 2021-04-24 00:00:00 41.4 kg/m2 [facility] BP Systolic 2021-04-24 00:00:00 136 mm[Hg] [facility] Body Weight 2021-04-24 00:00:00 3857.6 [oz_av] [facility] BP Diastolic 2021-04-20 00:00:00 32 mm[Hg] [facility] Height 2021-04-20 00:00:00 64 [in_i] [facility] BMI (Body Mass 2021-04-20 00:00:00 41.7 kg/m2 [facility] BP Systolic 2021-04-20 00:00:00 128 mm[Hg] [facility] Body Weight 2021-04-20 00:00:00 3891.2 [oz_av] [facility] BP Diastolic 2021-01-24 00:00:00 75 mm[Hg] [facility] Height 2021-01-24 00:00:00 64 [in_i] [facility] BMI (Body Mass 2021-01-24 00:00:00 40.8 kg/m2 [facility] BP Systolic 2021-01-24 00:00:00 113 mm[Hg] [facility] Body Weight 2021-01-24 00:00:00 3806.4 [oz_av] [facility] Height 2020-08-29 00:00:00 64 [in_i] [facility] BMI (Body Mass 2020-08-29 00:00:00 40.6 kg/m2 [facility] Index) Group BP Systolic 2020-08-29 00:00:00 145 mm[Hg] [facility] Body Weight 2020-08-29 00:00:00 3784 [oz_av] [facility] BP Diastolic 2020-08-29 00:00:00 92 mm[Hg] [facility] BP Diastolic 2020-06-08 00:00:00 79 mm[Hg] [facility] Height 2020-06-08 00:00:00 64 [in_i] [facility] BMI (Body Mass 2020-06-08 00:00:00 39.3 kg/m2 [facility] Index) Group BP Systolic 2020-06-08 00:00:00 122 mm[Hg] [facility] Body Weight 2020-06-08 00:00:00 3662.4 [oz_av] [facility] BP Diastolic 2020-05-16 00:00:00 72 mm[Hg] [facility] Height 2020-05-16 00:00:00 64 [in_i] [facility] BMI (Body Mass 2020-05-16 00:00:00 38.4 kg/m2 [facility] Medical Index) Group BP Systolic 2020-05-16 00:00:00 120 mm[Hg] [facility] Body Weight 2020-05-16 00:00:00 223.8 [lb_av] [facility] BP Diastolic 2020-05-04 00:00:00 76 mm[Hg] [facility] Height 2020-05-04 00:00:00 64 [in_i] [facility] BMI (Body Mass 2020-05-04 00:00:00 38.6 kg/m2 [facility] BP Systolic 2020-05-04 00:00:00 130 mm[Hg] [facility] Body Weight 2020-05-04 00:00:00 225 [lb_av] [facility] BP Diastolic 2020-04-27 00:00:00 86 mm[Hg] [facility] Height 2020-04-27 00:00:00 64 [in_i] [facility] BMI (Body Mass 2020-04-27 00:00:00 40.7 kg/m2 [facility] Index) Group BP Systolic 2020-04-27 00:00:00 143 mm[Hg] [facility] Body Weight 2020-04-27 00:00:00 3792 [oz_av] [facility] BP Diastolic 2020-04-19 00:00:00 95 mm[Hg] [facility] Height 2020-04-19 00:00:00 64 [in_i] [facility] BMI (Body Mass 2020-04-19 00:00:00 40.8 kg/m2 [facility] Medical Index) Group BP Systolic 2020-04-19 00:00:00 139 mm[Hg] [facility] Body Weight 2020-04-19 00:00:00 3806.4 [oz_av] [facility] BP Diastolic 2020-02-25 00:00:00 104 mm[Hg] [facility] Height 2020-02-25 00:00:00 64 [in_i] [facility] BMI (Body Mass 2020-02-25 00:00:00 39.4 kg/m2 [facility] Medical Index) Group BP Systolic 2020-02-25 00:00:00 153 mm[Hg] [facility] Body Weight 2020-02-25 00:00:00 3669 [oz_av] [facility] Body height 2021-11-12 15:46:00 162.6 cm [facility] Body weight 2021-11-12 15:46:00 107.049 kg [facility] BMI 2021-11-12 15:46:00 40.51 kg/m2 [facility] Procedures Procedure Date / Time Performing Clinician Source Performed MRI LOWER EXTREMITY 2021-11-06 14:53:08 Johnathan Shah [facility] EXTERNAL STUDY XR LOWER EXTREMITY 2021-09-27 19:52:24 Johnathan Shah [facility] EXTERNAL STUDY XR, knee, 3 view 2021-09-27 00:00:00 [facility] XR, chest, 2 view 2021-04-24 00:00:00 [facility] Laparoscopic 2020-05-08 00:00:00 [facility] unlisted imaging order 2020-04-27 00:00:00 [facility] Section 2013-05-19 00:00:00 [facility] Plan of Care Planned Activity Planned Date Details Comments Source Future Scheduled Test 2022-01-10 HEPATITIS B [facility]3] 17:30:10 VACCINES (1 of 3 - 3-dose series) [code = HEPATITIS B VACCINES (1 of 3 - 3-dose series)] Future Scheduled Test 2022-01-10 Hepatitis C [facility]3] 17:30:10 screening (procedure) [code = 821181297] Future Scheduled Test 2022-01-10 [facility] 17:30:10 malignant neoplasm of cervix (procedure) [code = 769850817] Future Scheduled Test 2022-01-10 COVID-19 VACCINE ([facility] 17:30:10 - Booster for Moderna series) [code = COVID-19 VACCINE (3 - Booster for Moderna series)] Future Scheduled Test 2022-01-10 INFLUENZA VACCINE [facility] 17:30:10 [code = INFLUENZA VACCINE] Instructions [facility] Encounters Start End Encounter Admission Attending Care Care Encounter Source Date/Time Date/Time Type Type Clinicians Facility Department ID 2022-01-10 2022-01-10 Telephone [facility], [id number] [facility] 00:00:00 00:00:[id number] [id number] Hospit [id number] .[id number] 2021-12-25 2021-12-25 [facility] [id number] [facility] 00[facility]:00 00:00:00 [facility] 2021-12-21 2021-12-21 Outpatient Hawkins_M MMG MMG [id number] [facility] 00:00:00 00:00:00 [facility]805 [facility] 2021-12-21 2021-12-21 Dilia MM [place] - [id number] [facility] 00:00:00 00:00:00 Jagruti Phipps, Medical Medical BUSINESS ANALYTICS ANALYST: [address] [facility] [address] [place] [address] , Ph. 2021-12-18 2021-12-18 Outpatient [facility] [id number] -2021 [facility] 00:00:00 00:00:00 0802 [facility] 2021-12-18 2021-12-18 Dilia JIMENEZ [place] - [id number] M [facility] 00:00:00 00:00:00 Jagruti Phipps, Medical Medical BUSINESS ANALYTICS ANALYST: [address], [place] [address] , Ph. 2021-11-23 2021-11-23 Outpatient Oly[facility]M [facility] [id number] -2021 [facility] 03:49:00 03:49:00 0708 [facility] 2021-11-23 2021-11-23 Dilia [facility] [place] - [id number] M [facility] 00:00:00 00:00:00 Jagruti Phipps, Medical Medical BUSINESS ANALYTICS ANALYST: [address] [facility] [address], [place] [address] , Ph. 2021-11-12 2021-11-12 Hospital Sitter, 1.2.840.1 [id number] Methodi 10:23:05 23:59:00 Encounter Johnathan Jimenez 09426.1.[address] 3.430.2.7 Hospit a .3.346733 l .8 2021-11-12 2021-11-12 Office Sitter, 1.2.840.1 [id number] Methodi 10:10:00 10:52:50 Visit Johnathan Jimenez 06529.1.1 868 s t 3.430.2.7 Hospit a .3.694190 l .8 2021-11-12 2021-11-12 Outpatient SITTER, [facility] [id number] [address] [place] [address] 00:00:00 00:00:00 JOHNATHAN [address] 2021-11-12 2021-11-12 Outpatient SITTER, [facility] [id number] [address] [place] [address] 00:00:00 00:00:00 JOHNATHAN [address] 2021-11-12 2021-11-12 Travel 1.2.840.1 1.2.190.557 [id number] [id number] Methodi 00:00:00 00:00:[address] 3.430.2.7 0.2.7.3.698 Ho spita .3.582816 084.8 l .8 2021-11-06 2021-11-06 Travel 1.2.840.1 1.2.681.844 7864 [id number] Methodi 00:00:00 00:00:[address] 3.430.2.7 0.2.7.3.698 Ho spita .3.924471 084.8 l .8 2021-11-05 2021-11-05 Telephone Melonieirinaon, 1.2.840.1 [id number] Methodi 00:00:00 00:00:[address] 3.430.2.7 Hospit a .3.867228 l .8 2021-11-02 2021-11-02 Telephone Abbott, 1.2.840.1 [id number] [id number] Methodi 00:00:00 00:00:[address] 3.430.2.7 Hospit a .3.802865 l .8 2021-10-31 2021-10-31 Hospital Sitter, 1.2.840.1 [id number] 83458 Methodi 08:10:09 23:59:00 Encounter Johnathan Jimenez 16909.1.[address] 3.430.2.7 Hospit a .3.913861 l .8 2021-10-31 2021-10-31 Office Sitter, 1.2.840.1 [id number] Methodi 08:10:00 08:38:10 Visit Johnathan Jimenez 32075.1.1 960 s t 3.430.2.7 Hospit a .3.459716 l .8 2021-10-31 2021-10-31 Outpatient SITTER, [facility] [id number] [address] 00:00:00 00:00:00 JOHNATHAN [address] 2021-10-31 2021-10-31 Orders Sitter, 1.2.840.1 [id number] 9424 Methodi 00:00:00 00:00:00 Only Johnathan Jimenez 92418.1.1 935 s t 3.430.2.7 Hospit a .3.852295 l .8 2021-10-31 2021-10-31 Travel 1.2.840.1 1.2.525.932 3199 [id number] Methodi 00:00:00 00:00:[address] 3.430.2.7 0.2.7.3.698 Ho spita .3.123744 084.8 l .8 2021-10-31 2021-10-31 Outpatient SITTER, [facility] [id number] [address] 00:00:00 00:00:00 JOHNATHAN [address] 2021-10-09 2021-10-09 Travel 1.2.840.1 1.2.967.250 9384 [id number] Methodi 00:00:00 00:00:[address] 3.430.2.7 0.2.7.3.698 Ho spita .3.816796 084.8 l .8 2021-09-27 2021-09-27 Outpatient Oly_Stacy [facility] [id number] [place] 02:53:00 02:53:00 05 Medical Group 2021-09-27 2021-09-27 Dilia [facility] [place] - [id number] Stacy [place] 00:00:00 00:00:00 Jagruti Phipps [facility] Medical BUSINESS ANALYTICS ANALYST: [address] [facility] [address], [place] [address] , Ph. 2021-06-15 2021-06-15 Outpatient Hawkins_M MMG MMG 87225 -2 [place] 12:42:00 12:42:00 0128 da [facility] 2021-06-15 2021-06-15 Outpatient Hawkins_M MMG MMG [id number] -2021 [place] 12:42:00 12:42:00 0202 da [facility] 2021-06-15 2021-06-15 Dilia [facility] [place] - [id number] M [place] 00:00:00 00:00:00 Jagruti Barrerakins, Medical Medical BUSINESS ANALYTICS ANALYST: [address] [address], [place] [address] , Ph. 2021-05-25 2021-05-25 Outpatient Hawkins_M MMG MMG [id number] -2021 [place] 11:52:00 11:52:00 0107 da [facility] 2021-04-24 2021-04-24 Outpatient Hawkins_M MMG MMG 97099 -2020 [place] 04:22:00 04:22:00 1207 Medical Group 2021-04-24 2021-04-24 Dilia [facility] [place] - [id number] M [place] 00:00:00 00:00:00 Jagruti Phipps, Medical Medical BUSINESS ANALYTICS ANALYST: [address] [facility] [address], [place] [address] , Ph. 2021-04-20 2021-04-20 Outpatient Hawkins_M MMG MMG [id number] -2020 [place] 09:58:00 09:58:00 1203 Medical Group 2021-04-20 2021-04-20 Dilia [facility] [place] - [id number] M [place] 00:00:00 00:00:00 Jagruti Phipps, Medical Medical BUSINESS ANALYTICS ANALYST: [address] [facility] [address], [place] [address] , Ph. 2021-01-24 2021-01-24 Outpatient Hawkins_M MMG MMG [id number] -2020 [place] 05:01:00 05:01:00 0917 Medical Group 2021-01-24 2021-01-24 [place] [id number] -2020 [place] 05:01:00 05:01:00 0919 da Medical Group 2021-01-24 2021-01-24 [place] [id number] -2020 [place] 05:01:00 05:01:00 0922 Medical Group 2021-01-24 2021-01-24 [place] [id number] -2020 [place] 05:01:00 05:01:00 0908 Medical Group 2021-01-24 2021-01-24 [place] [id number] -2020 [place] 05:01:00 05:01:00 0912 Medical Group 2021-01-24 2021-01-24 Dilia [facility] [place] - [id number] M [place] 00:00:00 00:00:00 Jagruti [facility] Medical BUSINESS ANALYTICS ANALYST: [address] [facility] [address], [place] [address] , Ph. 2020-10-03 2020-10-03 Outpatient Hawkins_M MMG [facility] [id number] -2020 [place] 12:18:00 12:18:00 0518 Medical Group 2020-10-03 2020-10-03 Outpatient Hawkins_M MMG [facility] [id number] -2020 [place] 12:18:00 12:18:00 09 Medical Group 2020-10-03 2020-10-03 [place] [id number] -2020 [place] 12:18:00 12:18:00 0902 Medical Group 2020-08-29 2020-08-29 [place] [id number] -2020 [place] 03:31:00 03:31:00 0413 Medical Group 2020-08-29 2020-08-29 [place] [id number] [place] 03:31:00 03:31:00 0415 Medical Group 2020-08-29 2020-08-29 Dilia [facility] [place] - [id number] M [place] 00:00:00 00:00:00 Jagruti Phipps, Medical Medical BUSINESS ANALYTICS ANALYST: [address] [facility] [address], [place] [address] , Ph. 2020-08-25 2020-08-25 Outpatient AMBREEN_FAR MEHOP MEHOP 832 [place] 12:41:00 12:41:00 HANA [facility]409 [facility] 2020-08-25 2020-08-25 Kathryn RICHARDS [place] - [id number] M [place] 00:00:00 00:00:00 Azalia Aguilar MD: [address] [facility] [place] [address] [facility] , Ph. Program 2020-07-27 2020-07-27 Outpatient AMBREEN_FAR MEHOP MEHOP 832 [place] 05:08:00 05:08:00 HANA 0311 [facility] 2020-07-27 2020-07-27 Kathryn RICHARDS [place] - [id number] M [place] 00:00:00 00:00:00 Azalia Aguilar MD: [address] [facility] [address], [place] Outre [address] h , Ph. Program 2020-07-24 2020-07-24 Outpatient LISTER_MELI MEHOP MEHOP 832 [place] 12:15:00 12:15:00 SSA 0308 [facility] 2020-07-19 2020-07-19 Outpatient KADEN [facility] 7521 [facility] 13:20:00 23:59:00 CIARA 2020-07-12 2020-07-12 Outpatient KADEN [facility] CAR 7522 [facility] 09:15:00 23:59:00 CIARA 2020-06-21 2020-06-21 Outpatient KADEN [facility] 7520 [facility] 13:46:00 23:59:00 CIARA 2020-06-13 2020-06-13 Outpatient Hawkins_M MMG MMG [id number] -2020 [place] 04:34:00 04:34:00 0219 da [facility] 2020-06-13 2020-06-13 Outpatient Hawkins_M MMG MMG [id number] -2020 [place] 04:34:00 04:34:00 0303 da [facility] 2020-06-08 2020-06-08 Outpatient Hawkins_M MMG MMG [id number] -2020 [place] 04:32:00 04:32:00 0121 da [facility] 2020-06-08 2020-06-08 Outpatient Hawkins_M MMG MMG [id number] -2020 [place] 04:32:00 04:32:00 0125 da [facility] 2020-06-08 2020-06-08 Dilia [facility] [place] - [id number] M [place] 00:00:00 00:00:00 Lisa Larios Medical BUSINESS ANALYTICS ANALYST: [address] [place] [address], [place] [address] , Ph. 2020 2020 Outpatient Hawkins_M MMG MMG [id number] -2020 [place] 11:48:00 11:48:00 0112 da Medical Group 2020-05-24 2020-05-24 Outpatient IHDE_G MMG MMG [id number] 021 [place] 01:05:00 01:05:00 0106 da [facility] 2020-05-16 2020-05-16 Outpatient IHDE_G MMG MMG [id number] 020 [place] 11:24:00 11:24:00 1229 da Medical Group 2020-05-16 2020-05-16 Cornelius [facility] [place] - [id number] M [place] 00:00:00 00:00:00 Raul Burger MD: Medical Medica l [address] [facility] [address], [place] [address] , Ph. [phone] 2020-05-04 2020-05-04 Outpatient Hawkins_M MMG MMG [id number] -2019 [place] 10:55:00 10:55:00 1217 [facility] 2020-05-04 2020-05-04 Outpatient Hawkins_M MMG MMG [id number] -2019 [place] 10:55:00 10:55:00 1223 da [facility] 2020-05-04 2020-05-04 Cornelius [facility] [place] - [id number] M [place] 00:00:00 00:00:00 Raul Burger MD: Medical Medica l [address] [facility] [address], [place] [address] , Ph. [phone] 2020-04-27 2020-04-27 Outpatient Hawkins_M MMG MMG [id number] -2019 [place] 10:29:00 10:29:00 1210 da [facility] 2020-04-27 2020-04-27 Outpatient Hawkins_M MMG MMG [id number] [place] 10:29:00 10:29:00 1216 da [facility] 2020-04-27 2020-04-27 Dilia [facility] [place] - [id number] M [place] 00:00:00 00:00:00 Jagruti Phipps, Medical Medical BUSINESS ANALYTICS ANALYST: [address] [facility] [address], [place] [address] , Ph. 2020-04-26 2020-04-26 Outpatient Hawkins_M MMG MMG [id number] -2019 [place] 05:31:00 05:31:00 1209 da [facility] 2020-04-19 2020-04-19 Outpatient Hawkins_M MMG MMG [id number] -2019 [place] 03:05:00 03:05:00 1202 da [facility] 2020-04-19 2020-04-19 Outpatient Hawkins_M MMG MMG [id number] -2019 [place] 03:05:00 03:05:00 1206 da [facility] 2020-04-19 2020-04-19 Dilia [facility] [place] - [id number] M [place] 00:00:00 00:00:00 Jagruti Phipps, Medical Medical BUSINESS ANALYTICS ANALYST: [address] [facility] [address], [place] [address] , Ph. 2020-04-18 2020-04-18 Outpatient Hawkins_M MMG MMG [id number] -2019 [place] 09:52:00 09:52:00 1201 da [facility] 2020-04-05 2020-04-05 Outpatient Hawkins_M MMG MMG [id number] -2019 [place] 02:27:00 02:27:00 1118 da [facility] 2020-03-10 2020-03-10 Outpatient Hawkins_M MMG MMG [id number] -2019 [place] 01:05:00 01:05:00 1023 da [facility] 2020-03-04 2020-03-04 Outpatient Hawkins_M MMG MMG [id number] -2019 [place] 03:41:00 03:41:00 1019 da [facility] 2020-03-01 2020-03-01 Outpatient Hawkins_M MMG MMG [id number] -2019 [place] 12:34:00 12:34:00 1014 da [facility] 2020-02-25 2020-02-25 Outpatient Hawkins_M MMG MMG [id number] -2019 [place] 02:54:00 02:54:00 1009 da [facility] 2020-02-25 2020-02-25 Outpatient Hawkins_M MMG MMG [id number] -2019 [place] 02:54:00 02:54:00 1010 da [facility] 2020-02-25 2020-02-25 Outpatient Hawkins_M MMG MMG [id number] -2019 [place] 02:54:00 02:54:00 1012 da [facility] 2020-02-25 2020-02-25 Dilia [facility] [place] - [id number] M [place] 00:00:00 00:00:00 Jagruti Phipps, Medical Medical BUSINESS ANALYTICS ANALYST: [address] [facility] [address], [place] [address] , Ph. Results Test Description Test Time Test Comments Results Result Comments Source rapid strep group A, throat 2021-11-23 15:35:20 Test Item Value Reference Range Interpretation Comme nts Strep Result (test code = Strep Result) negative [facility], [id number] 15:35:20 Test Item Value Reference Range Interpretation Comments Strep Result (test code = [facility] negative [facility] [id number] 15:35:20 Test Item Value Reference Range Interpretation Comments Strep Result (test code = [facility]rep negative Result[facility]2021-11-23 15:35:15 Test Item Value Reference Range Interpretation Comments Flu (test code = Flu) [facility]2021-11-23 15:35:15 Test Item Value Reference Range Interpretation Comments Flu (test code = Flu) negative [facility]2021-11-23 15:35:15 Test Item Value Reference Range Interpretation Comments Flu (test code = Flu) [facility] Ag [Presence] in Respiratory specimen by Rapid [id number] 15:35:10 Test Item Value Reference Range Interpretation Comments SARS-CoV - 2 (test code = SARS-CoV - positive 2) [facility] Ag [Presence] in Respiratory specimen by Rapid [id number] 15:35:10 Test Item Value Reference Range Interpretation Comments SARS-CoV - 2 (test code = SARS-CoV - positive 2) [facility] Ag [Presence] in Respiratory specimen by Rapid [id number] 15:35:10 Test Item Value Reference Range Interpretation Comments SARS-CoV - 2 (test code = SARS-CoV - positive 2) [facility], [id number] 15:53:51 Test Item Value Reference Range Interpretation Comments Strep Result (test code = Strep negative Result) [facility] + B and SARS CoV + SARS CoV 2 Ag panel, [place], upper respiratory [id number] 15:53:46 Test Item Value Reference Range Interpretation Comments RAPID SARS COV (test code = RAPID negative SARS COV) RAPID FLU A (test code = RAPID FLU positive A) RAPID FLU B (test code = RAPID FLU negative B) [facility] influenza virus A + B and SARS CoV + SARS CoV 2 Ag panel, [place], upper respiratory [id number] 09:41:31 Test Item Value Reference Range Interpretation Comments RAPID SARS COV (test code = RAPID negative SARS COV) RAPID FLU A (test code = RAPID FLU positive A) RAPID FLU B (test code = RAPID FLU negative B) [facility] influenza virus A + B and SARS CoV + SARS CoV 2 Ag panel, [place], upper respiratory [id number] 09:41:31 Test Item Value Reference Range Interpretation Comments RAPID SARS COV (test code = RAPID negative SARS COV) RAPID FLU A (test code = RAPID FLU positive A) RAPID FLU B (test code = RAPID FLU negative B) [facility] strep group A, [id number] 09:41:24 Test Item Value Reference Range Interpretation Comments Strep Result (test code = Strep negative Result) [facility] strep group A, [id number] 09:41:24 Test Item Value Reference Range Interpretation Comments Strep Result (test code = Strep negative Result) [facility] Auto Differential panel - [id number] 07:39:00 Test Item Value Reference Range Interpretation Comments white blood count (test code = 6.5 K/uL 4.0-11.5 white blood count) red blood count (test code = red 4.72 M/uL 3.80-5.20 blood count) hemoglobin (test code = 10.1 g/dL 10.5-15.7 L hemoglobin) hematocrit (test code = 33.6 % 34.0-50.0 L hematocrit) MCV [Entitic volume] (test code = 71.2 fL 86-100 L 46446-8) mean corpuscular hemoglobin (test 21.4 pg 26.2-33.4 L code = mean corpuscular hemoglobin) mean corpuscular HGB conc (test 30.1 g/dL 30-34 code = mean corpuscular HGB conc) red cell distribution width (test 19.2 % 12.0-15.5 H code = red cell distribution width) platelet count (test code = 335 K/uL 165-450 platelet count) mean platelet volume (test code = 11.3 fL 9.4-12.6 mean platelet volume) Segmented neutrophils/100 66.1 % 44.4-80.1 leukocytes in Blood (test code = 29391-3) Immature granulocytes [#/volume] 0.0 K/uL 0.0-0.03 H in Blood (test code = 29813-9) lymphocyte% (test code = 22.0 % 10.0-50.0 lymphocyte%) mono % (test code = mono %) 7.8 % 3.6-12.0 eos % (test code = eos %) 3.2 % 0.0-5.4 Basophils/100 leukocytes in 0.3 % 0.1-1.2 Unspecified specimen (test code = 15490-3) Band form neutrophils [#/volume] 4.29 K/uL 1.56-6.13 in Blood (test code = 92521-0) Lymphocytes [#/volume] in 1.4 K/uL 1.18-3.74 Unspecified specimen by Automated count (test code = 11817-2) mono # (test code = mono #) 0.51 K/uL 0.24-0.86 eos # (test code = eos #) 0.21 K/uL 0.04-0.36 basophil # (test code = basophil 0.02 K/uL 0.01-0.08 #) NRBC% (test code = NRBC%) 0 /100 WBC 0-0.2 NRBC# (test code = NRBC#) 0 K/uL [facility], method unspecified - [id number] 07:39:00NeutrophilsLymphocyteAtypical LymphMonocytePlatelet EstimateMataNorth Mississippi State HospitalComprehensive metabolic 2000 panel - Serum or [id number] 07:39:00 Test Item Value Reference Range Interpretation Comments Glucose [Mass/volume] in Serum or 134 mg/dL 74-106 H Plasma (test code = 2345-7) Urea nitrogen [Mass/volume] in 12 mg/dL 6-20 Serum or Plasma (test code = 3094-0) osmolality calculated,serum (test 279 mOsm/kg 280-300 L code = osmolality calculated,serum) creatinine (test code = 0.8 mg/dL 0.50-0.90 creatinine) glomerular filtration rate (test >60.00 code = glomerular filtration rate) Urea nitrogen/Creatinine [Mass 15.0 12-20 Ratio] in Serum or Plasma (test code = 3097-3) sodium level (test code = sodium 139 mmol/L 135-145 level) potassium level (test code = 4.0 mmol/L 3.5-5.2 potassium level) chloride level (test code = 102 mmol/L 98-108 chloride level) CO2 (test code = CO2) 24 mmol/L 21-32 anion gap (test code = anion gap) 17.0 mEq/L 12-20 calcium level (test code = 9.9 mg/dL 8.6-10.0 calcium level) total protein (test code = total 8.0 g/dL 6.6-8.7 protein) albumin (test code = albumin) 4.0 g/dL 3.5-5.2 globulin (test code = globulin) 4.0 gm/dL A/G ratio (test code = A/G ratio) 1.0 >1.0 bilirubin,total (test code = 1.3 mg/dL 0.0-1.2 H bilirubin,total) AST/SGOT (test code = AST/SGOT) 60 U/L 15-32 Alanine aminotransferase 149 U/L 0-33 H [Enzymatic activity/volume] in Serum or Plasma (test code = 1742-6) Alkaline phosphatase [Enzymatic 164 U/L 35-105 H activity/volume] in Serum or Plasma (test code = 6768-6) [facility] W Auto Differential panel - [id number] 03:56:00 Test Item Value Reference Range Interpretation Comments white blood count (test code = 6.0 K/uL 4.0-11.5 white blood count) red blood count (test code = red 4.12 M/uL 3.80-5.20 blood count) hemoglobin (test code = 8.9 g/dL 10.5-15.7 L hemoglobin) hematocrit (test code = 29.5 % 34.0-50.0 L hematocrit) MCV [Entitic volume] (test code = 71.6 fL 86-100 L 15714-4) mean corpuscular hemoglobin (test 21.6 pg 26.2-33.4 L code = mean corpuscular hemoglobin) mean corpuscular HGB conc (test 30.2 g/dL 30-34 code = mean corpuscular HGB conc) red cell distribution width (test 17.5 % 12.0-15.5 H code = red cell distribution width) platelet count (test code = 285 K/uL 165-450 platelet count) mean platelet volume (test code = 11.7 fL 9.4-12.6 mean platelet volume) Segmented neutrophils/100 58.4 % 44.4-80.1 leukocytes in Blood (test code = 59924-3) Immature granulocytes [#/volume] 0.0 K/uL 0.0-0.03 in Blood (test code = 88532-9) lymphocyte% (test code = 32.5 % 10.0-50.0 lymphocyte%) mono % (test code = mono %) 7.8 % 3.6-12.0 eos % (test code = eos %) 0.7 % 0.0-5.4 Basophils/100 leukocytes in 0.3 % 0.1-1.2 Unspecified specimen (test code = 31604-2) Band form neutrophils [#/volume] 3.50 K/uL 1.56-6.13 in Blood (test code = 80618-7) Lymphocytes [#/volume] in 2.0 K/uL 1.18-3.74 Unspecified specimen by Automated count (test code = 32965-1) mono # (test code = mono #) 0.47 K/uL 0.24-0.86 eos # (test code = eos #) 0.04 K/uL 0.04-0.36 basophil # (test code = basophil 0.02 K/uL 0.01-0.08 #) NRBC% (test code = NRBC%) 0 /100 WBC 0-0.2 NRBC# (test code = NRBC#) 0 K/uL [facility] CenterDifferent[facility], method unspecified - [id number] 03:56:00NeutrophilsBandLymphocyteAtypical LymphMonocyteEosinophilBasophilPlatelet EstimatePlatelet Morphology AnisocytosisRouleauWest Campus Of [facility] CenterComprehensive metabolic 2000 panel - Serum or [id number] 03:56:00 Test Item Value Reference Range Interpretation Comments Glucose [Mass/volume] in Serum or 106 mg/dL 74-106 Plasma (test code = 2345-7) Urea nitrogen [Mass/volume] in 11 mg/dL 6-20 Serum or Plasma (test code = 3094-0) osmolality calculated,serum (test 277 mOsm/kg 280-300 L code = osmolality calculated,serum) creatinine (test code = 0.7 mg/dL 0.50-0.90 creatinine) glomerular filtration rate (test >60.00 code = glomerular filtration rate) Urea nitrogen/Creatinine [Mass 15.7 12-20 Ratio] in Serum or Plasma (test code = 3097-3) sodium level (test code = sodium 139 mmol/L 135-145 level) potassium level (test code = 4.0 mmol/L 3.5-5.2 potassium level) chloride level (test code = 105 mmol/L 98-108 chloride level) CO2 (test code = CO2) 25 mmol/L 21-32 anion gap (test code = anion gap) 13.0 mEq/L 12-20 calcium level (test code = 9.0 mg/dL 8.6-10.0 calcium level) total protein (test code = total 7.1 g/dL 6.6-8.7 protein) albumin (test code = albumin) 3.7 g/dL 3.5-5.2 globulin (test code = globulin) 3.4 gm/dL A/G ratio (test code = A/G ratio) 1.1 >1.0 bilirubin,total (test code = 1.2 mg/dL 0.0-1.2 bilirubin,total) AST/SGOT (test code = AST/SGOT) 165 U/L 15-32 H Alanine aminotransferase 238 U/L 0-33 H [Enzymatic activity/volume] in Serum or Plasma (test code = 1742-6) Alkaline phosphatase [Enzymatic 77 U/L 35-105 activity/volume] in Serum or Plasma (test code = 6768-6) [facility] CenterCBC [facility] Auto Differential panel - [id number] 03:56:00 Test Item Value Reference Range Interpretation Comments white blood count (test code = 6.0 K/uL 4.0-11.5 white blood count) red blood count (test code = red 4.12 M/uL 3.80-5.20 blood count) hemoglobin (test code = 8.9 g/dL 10.5-15.7 L hemoglobin) hematocrit (test code = 29.5 % 34.0-50.0 L hematocrit) MCV [Entitic volume] (test code = 71.6 fL 86-100 L 02250-5) mean corpuscular hemoglobin (test 21.6 pg 26.2-33.4 L code = mean corpuscular hemoglobin) mean corpuscular HGB conc (test 30.2 g/dL 30-34 code = mean corpuscular HGB conc) red cell distribution width (test 17.5 % 12.0-15.5 H code = red cell distribution width) platelet count (test code = 285 K/uL 165-450 platelet count) mean platelet volume (test code = 11.7 fL 9.4-12.6 mean platelet volume) Segmented neutrophils/100 58.4 % 44.4-80.1 leukocytes in Blood (test code = 15418-4) Immature granulocytes [#/volume] 0.0 K/uL 0.0-0.03 in Blood (test code = 42627-5) lymphocyte% (test code = 32.5 % 10.0-50.0 lymphocyte%) mono % (test code = mono %) 7.8 % 3.6-12.0 eos % (test code = eos %) 0.7 % 0.0-5.4 Basophils/100 leukocytes in 0.3 % 0.1-1.2 Unspecified specimen (test code = 50324-2) Band form neutrophils [#/volume] 3.50 K/uL 1.56-6.13 in Blood (test code = 53560-6) Lymphocytes [#/volume] in 2.0 K/uL 1.18-3.74 Unspecified specimen by Automated count (test code = 08573-5) mono # (test code = mono #) 0.47 K/uL 0.24-0.86 eos # (test code = eos #) 0.04 K/uL 0.04-0.36 basophil # (test code = basophil 0.02 K/uL 0.01-0.08 #) NRBC% (test code = NRBC%) 0 /100 WBC 0-0.2 NRBC# (test code = NRBC#) 0 K/uL [facility] CenterDifferent[facility] panel, method unspecified - [id number] 03:56:00NeutrophilsBandLymphocyteAtypical LymphMonocyteEosinophilBasophilPlatelet EstimatePlatelet Morphology AnisocytosisRouleOcean Springs HospitalComprehensive metabolic 2000 panel - Serum or [id number] 03:56:00 Test Item Value Reference Range Interpretation Comments Glucose [Mass/volume] in Serum or 106 mg/dL 74-106 Plasma (test code = 2345-7) Urea nitrogen [Mass/volume] in 11 mg/dL 6-20 Serum or Plasma (test code = 3094-0) osmolality calculated,serum (test 277 mOsm/kg 280-300 L code = osmolality calculated,serum) creatinine (test code = 0.7 mg/dL 0.50-0.90 creatinine) glomerular filtration rate (test >60.00 code = glomerular filtration rate) Urea nitrogen/Creatinine [Mass 15.7 12-20 Ratio] in Serum or Plasma (test code = 3097-3) sodium level (test code = sodium 139 mmol/L 135-145 level) potassium level (test code = 4.0 mmol/L 3.5-5.2 potassium level) chloride level (test code = 105 mmol/L 98-108 chloride level) CO2 (test code = CO2) 25 mmol/L 21-32 anion gap (test code = anion gap) 13.0 mEq/L 12-20 calcium level (test code = 9.0 mg/dL 8.6-10.0 calcium level) total protein (test code = total 7.1 g/dL 6.6-8.7 protein) albumin (test code = albumin) 3.7 g/dL 3.5-5.2 globulin (test code = globulin) 3.4 gm/dL A/G ratio (test code = A/G ratio) 1.1 >1.0 bilirubin,total (test code = 1.2 mg/dL 0.0-1.2 bilirubin,total) AST/SGOT (test code = AST/SGOT) 165 U/L 15-32 H Alanine aminotransferase 238 U/L 0-33 H [Enzymatic activity/volume] in Serum or Plasma (test code = 1742-6) Alkaline phosphatase [Enzymatic 77 U/L 35-105 activity/volume] in Serum or Plasma (test code = 6768-6) [facility] Differential panel - [id number] 04:19:00 Test Item Value Reference Range Interpretation Comments white blood count (test code = 8.1 K/uL 4.0-11.5 white blood count) red blood count (test code = red 4.72 M/uL 3.80-5.20 blood count) hemoglobin (test code = 10.0 g/dL 10.5-15.7 L hemoglobin) hematocrit (test code = 33.2 % 34.0-50.0 L hematocrit) MCV [Entitic volume] (test code = 70.3 fL 86-100 L 64104-5) mean corpuscular hemoglobin (test 21.2 pg 26.2-33.4 L code = mean corpuscular hemoglobin) mean corpuscular HGB conc (test 30.1 g/dL 30-34 code = mean corpuscular HGB conc) red cell distribution width (test 17.3 % 12.0-15.5 H code = red cell distribution width) platelet count (test code = 348 K/uL 165-450 platelet count) mean platelet volume (test code = 11.6 fL 9.4-12.6 mean platelet volume) Segmented neutrophils/100 82.2 % 44.4-80.1 H leukocytes in Blood (test code = 74587-1) Immature granulocytes [#/volume] 0.0 K/uL 0.0-0.03 in Blood (test code = 63117-0) lymphocyte% (test code = 11.7 % 10.0-50.0 lymphocyte%) mono % (test code = mono %) 5.9 % 3.6-12.0 eos % (test code = eos %) 0 % 0.0-5.4 Basophils/100 leukocytes in 0.1 % 0.1-1.2 Unspecified specimen (test code = 70346-1) Band form neutrophils [#/volume] 6.66 K/uL 1.56-6.13 H in Blood (test code = 23380-7) Lymphocytes [#/volume] in 1.0 K/uL 1.18-3.74 L Unspecified specimen by Automated count (test code = 30968-9) mono # (test code = mono #) 0.48 K/uL 0.24-0.86 eos # (test code = eos #) 0.00 K/uL 0.04-0.36 L basophil # (test code = basophil 0.01 K/uL 0.01-0.08 #) NRBC% (test code = NRBC%) 0 /100 WBC 0-0.2 NRBC# (test code = NRBC#) 0 K/uL [facility]Different[facility], method unspecified - [id number] 04:19:00NeutrophilsBandLymphocyteMonocytePlatelet EstimateAnisocytosisWest [facility] CenterComprehensive metabolic 2000 panel - Serum or [id number] 04:19:00 Test Item Value Reference Range Interpretation Comments Glucose [Mass/volume] in Serum or 151 mg/dL 74-106 H Plasma (test code = 2345-7) Urea nitrogen [Mass/volume] in 14 mg/dL 6-20 Serum or Plasma (test code = 3094-0) osmolality calculated,serum (test 274 mOsm/kg 280-300 L code = osmolality calculated,serum) creatinine (test code = 0.8 mg/dL 0.50-0.90 creatinine) glomerular filtration rate (test >60.00 code = glomerular filtration rate) Urea nitrogen/Creatinine [Mass 17.5 12-20 Ratio] in Serum or Plasma (test code = 3097-3) sodium level (test code = sodium 135 mmol/L 135-145 level) potassium level (test code = 4.8 mmol/L 3.5-5.2 potassium level) chloride level (test code = 102 mmol/L 98-108 chloride level) CO2 (test code = CO2) 23 mmol/L 21-32 anion gap (test code = anion gap) 14.8 mEq/L 12-20 calcium level (test code = 9.1 mg/dL 8.6-10.0 calcium level) total protein (test code = total 8.0 g/dL 6.6-8.7 protein) albumin (test code = albumin) 3.9 g/dL 3.5-5.2 globulin (test code = globulin) 4.1 gm/dL A/G ratio (test code = A/G ratio) 1.0 >1.0 bilirubin,total (test code = 0.8 mg/dL 0.0-1.2 bilirubin,total) AST/SGOT (test code = AST/SGOT) 183 U/L 15-32 Alanine aminotransferase 222 U/L 0-33 H [Enzymatic activity/volume] in Serum or Plasma (test code = 1742-6) Alkaline phosphatase [Enzymatic 91 U/L 35-105 activity/volume] in Serum or Plasma (test code = 6768-6) [facility] Differential panel - [id number] 04:19:00 Test Item Value Reference Range Interpretation Comments white blood count (test code = 8.1 K/uL 4.0-11.5 white blood count) red blood count (test code = red 4.72 M/uL 3.80-5.20 blood count) hemoglobin (test code = 10.0 g/dL 10.5-15.7 L hemoglobin) hematocrit (test code = 33.2 % 34.0-50.0 L hematocrit) MCV [Entitic volume] (test code = 70.3 fL 86-100 L 71171-2) mean corpuscular hemoglobin (test 21.2 pg 26.2-33.4 L code = mean corpuscular hemoglobin) mean corpuscular HGB conc (test 30.1 g/dL 30-34 code = mean corpuscular HGB conc) red cell distribution width (test 17.3 % 12.0-15.5 H code = red cell distribution width) platelet count (test code = 348 K/uL 165-450 platelet count) mean platelet volume (test code = 11.6 fL 9.4-12.6 mean platelet volume) Segmented neutrophils/100 82.2 % 44.4-80.1 H leukocytes in Blood (test code = 72960-6) Immature granulocytes [#/volume] 0.0 K/uL 0.0-0.03 in Blood (test code = 36048-1) lymphocyte% (test code = 11.7 % 10.0-50.0 lymphocyte%) mono % (test code = mono %) 5.9 % 3.6-12.0 eos % (test code = eos %) 0 % 0.0-5.4 Basophils/100 leukocytes in 0.1 % 0.1-1.2 Unspecified specimen (test code = 96983-2) Band form neutrophils [#/volume] 6.66 K/uL 1.56-6.13 H in Blood (test code = 90479-8) Lymphocytes [#/volume] in 1.0 K/uL 1.18-3.74 L Unspecified specimen by Automated count (test code = 59938-9) mono # (test code = mono #) 0.48 K/uL 0.24-0.86 eos # (test code = eos #) 0.00 K/uL 0.04-0.36 L basophil # (test code = basophil 0.01 K/uL 0.01-0.08 #) NRBC% (test code = NRBC%) 0 /100 WBC 0-0.2 NRBC# (test code = NRBC#) 0 K/uL [facility] CenterDifferent[facility] panel, method unspecified - [id number] 04:19:00NeutrophilsBandLymphocyteMonocytePlatelet EstimateAnisocytosisWest [facility] CenterComprehensive metabolic 2000 panel - Serum or [id number] 04:19:00 Test Item Value Reference Range Interpretation Comments Glucose [Mass/volume] in Serum or 151 mg/dL 74-106 H Plasma (test code = 2345-7) Urea nitrogen [Mass/volume] in 14 mg/dL 6-20 Serum or Plasma (test code = 3094-0) osmolality calculated,serum (test 274 mOsm/kg 280-300 L code = osmolality calculated,serum) creatinine (test code = 0.8 mg/dL 0.50-0.90 creatinine) glomerular filtration rate (test >60.00 code = glomerular filtration rate) Urea nitrogen/Creatinine [Mass 17.5 12-20 Ratio] in Serum or Plasma (test code = 3097-3) sodium level (test code = sodium 135 mmol/L 135-145 level) potassium level (test code = 4.8 mmol/L 3.5-5.2 potassium level) chloride level (test code = 102 mmol/L 98-108 chloride level) CO2 (test code = CO2) 23 mmol/L 21-32 anion gap (test code = anion gap) 14.8 mEq/L 12-20 calcium level (test code = 9.1 mg/dL 8.6-10.0 calcium level) total protein (test code = total 8.0 g/dL 6.6-8.7 protein) albumin (test code = albumin) 3.9 g/dL 3.5-5.2 globulin (test code = globulin) 4.1 gm/dL A/G ratio (test code = A/G ratio) 1.0 >1.0 bilirubin,total (test code = 0.8 mg/dL 0.0-1.2 bilirubin,total) AST/SGOT (test code = AST/SGOT) 183 U/L 15-32 Alanine aminotransferase 222 U/L 0-33 H [Enzymatic activity/volume] in Serum or Plasma (test code = 1742-6) Alkaline phosphatase [Enzymatic 91 U/L 35-105 activity/volume] in Serum or Plasma (test code = 6768-6) [facility] [id number] 02:30[facility]00Results [facility] [id number] 02:30:00Results [facility] Differential panel - [id number] 10:45:00 Test Item Value Reference Range Interpretation Comments white blood count (test code = 7.9 K/uL 4.0-11.5 white blood count) red blood count (test code = red 5.39 M/uL 3.80-5.20 H blood count) hemoglobin (test code = 11.6 g/dL 10.5-15.7 hemoglobin) hematocrit (test code = 38.2 % 34.0-50.0 hematocrit) MCV [Entitic volume] (test code = 70.9 fL 86-100 L 11490-4) mean corpuscular hemoglobin (test 21.5 pg 26.2-33.4 L code = mean corpuscular hemoglobin) mean corpuscular HGB conc (test 30.4 g/dL 30-34 code = mean corpuscular HGB conc) red cell distribution width (test 17.1 % 12.0-15.5 H code = red cell distribution width) platelet count (test code = 414 K/uL 165-450 platelet count) mean platelet volume (test code = 10.8 fL 9.4-12.6 mean platelet volume) Segmented neutrophils/100 59.6 % 44.4-80.1 leukocytes in Blood (test code = 39755-3) Immature granulocytes [#/volume] 0.0 K/uL 0.0-0.03 in Blood (test code = 11704-6) lymphocyte% (test code = 29.3 % 10.0-50.0 lymphocyte%) mono % (test code = mono %) 8.1 % 3.6-12.0 eos % (test code = eos %) 2.2 % 0.0-5.4 Basophils/100 leukocytes in 0.5 % 0.1-1.2 Unspecified specimen (test code = 45746-7) Band form neutrophils [#/volume] 4.69 K/uL 1.56-6.13 in Blood (test code = 59480-8) Lymphocytes [#/volume] in 2.3 K/uL 1.18-3.74 Unspecified specimen by Automated count (test code = 49369-5) mono # (test code = mono #) 0.64 K/uL 0.24-0.86 eos # (test code = eos #) 0.17 K/uL 0.04-0.36 basophil # (test code = basophil 0.04 K/uL 0.01-0.08 #) NRBC% (test code = NRBC%) 0 /100 WBC 0-0.2 NRBC# (test code = NRBC#) 0 K/uL [facility] CenterDifferent[facility], method unspecified - [id number] 10:45:00NeutrophilsBandLymphocyteMonocytePlatelet EstimateMataNorth Mississippi State HospitalChoriogonadotropin ( test) [Presence] in Serum or [id number] 10:45:00 Test Item Value Reference Range Interpretation Comments Choriogonadotropin.beta subunit negative neg ( test) [Presence] in Serum or Plasma (test code = 2110-5) [facility] CenterComprehensive [facility] 2000 panel - Serum or Plasma 2020-05-05 10:45:00 Test Item Value Reference Range Interpretation Comments Glucose [Mass/volume] in Serum or 123 mg/dL 74-106 H Plasma (test code = 2345-7) Urea nitrogen [Mass/volume] in 19 mg/dL 6-20 Serum or Plasma (test code = 3094-0) osmolality calculated,serum (test 278 mOsm/kg 280-300 L code = osmolality calculated,serum) creatinine (test code = 0.8 mg/dL 0.50-0.90 creatinine) glomerular filtration rate (test >60.00 code = glomerular filtration rate) Urea nitrogen/Creatinine [Mass 23.8 12-20 H Ratio] in Serum or Plasma (test code = 3097-3) sodium level (test code = sodium 137 mmol/L 135-145 level) potassium level (test code = 4.1 mmol/L 3.5-5.2 potassium level) chloride level (test code = 97 mmol/L 98-108 L chloride level) CO2 (test code = CO2) 28 mmol/L 21-32 anion gap (test code = anion gap) 16.1 mEq/L 12-20 calcium level (test code = 9.8 mg/dL 8.6-10.0 calcium level) total protein (test code = total 8.9 g/dL 6.6-8.7 H protein) albumin (test code = albumin) 4.5 g/dL 3.5-5.2 globulin (test code = globulin) 4.4 gm/dL A/G ratio (test code = A/G ratio) 1.0 >1.0 bilirubin,total (test code = 0.4 mg/dL 0.0-1.2 bilirubin,total) AST/SGOT (test code = AST/SGOT) 16 U/L 15-32 Alanine aminotransferase 20 U/L 0-33 [Enzymatic activity/volume] in Serum or Plasma (test code = 1742-6) Alkaline phosphatase [Enzymatic 86 U/L 35-105 activity/volume] in Serum or Plasma (test code = 6768-6) [facility] Differential panel - [id number] 01:25:00 Test Item Value Reference Range Interpretation Comments white blood count (test code = 11.6 K/uL 4.0-11.5 white blood count) red blood count (test code = red 5.65 M/uL 3.80-5.20 H blood count) hemoglobin (test code = 11.9 g/dL 10.5-15.7 hemoglobin) hematocrit (test code = 39.3 % 34.0-50.0 hematocrit) MCV [Entitic volume] (test code = 69.6 fL 86-100 L 34926-1) mean corpuscular hemoglobin (test 21.1 pg 26.2-33.4 L code = mean corpuscular hemoglobin) mean corpuscular HGB conc (test 30.3 g/dL 30-34 code = mean corpuscular HGB conc) red cell distribution width (test 17.2 % 12.0-15.5 H code = red cell distribution width) platelet count (test code = 429 K/uL 165-450 platelet count) mean platelet volume (test code = 10.7 fL 9.4-12.6 mean platelet volume) Segmented neutrophils/100 70.2 % 44.4-80.1 leukocytes in Blood (test code = 53706-6) Immature granulocytes [#/volume] 0.0 K/uL 0.0-0.03 in Blood (test code = 39451-8) lymphocyte% (test code = 21.8 % 10.0-50.0 lymphocyte%) mono % (test code = mono %) 5.1 % 3.6-12.0 eos % (test code = eos %) 2.3 % 0.0-5.4 Basophils/100 leukocytes in 0.3 % 0.1-1.2 Unspecified specimen (test code = 09082-3) Band form neutrophils [#/volume] 8.11 K/uL 1.56-6.13 H in Blood (test code = 08467-3) Lymphocytes [#/volume] in 2.5 K/uL 1.18-3.74 Unspecified specimen by Automated count (test code = 48906-3) mono # (test code = mono #) 0.59 K/uL 0.24-0.86 eos # (test code = eos #) 0.27 K/uL 0.04-0.36 basophil # (test code = basophil 0.03 K/uL 0.01-0.08 #) NRBC% (test code = NRBC%) 0 /100 WBC 0-0.2 NRBC# (test code = NRBC#) 0 K/uL [facility] CenterDifferent[facility], method unspecified - [id number] 01:25:00 NeutrophilsBandLymphocyteMonocyteEosinophilMetamyelocyteMyelocyteNucleated Red Blood CellPlatelet Est imatePolychromasiaHypochromasiaPoikilocytosisAnisocytosisMicrocytosisTarget CellsTear Drop CellsOvalocytesToxic GranulationToxic VacuolationGiant Platelets [facility] CenterTroponin I.cardiac [Mass/volume] in [id number] 01:25:00 Test Item Value Reference Range Interpretation Comments cardiac troponin I (test code = cardiac <0.30 0.0-0.5 troponin I) [facility] CenterCreatine kinase.MB [Mass/volume] in Serum or Plasma 2020-04-26 01:25:00 Test Item Value Reference Range Interpretation Comments Creatine kinase.MB [Mass/volume] in 1.1 NG/mL 0.0-3.6 Serum or Plasma by Immunoassay (test code = 48972-0) [facility] CenterCom[facility] 2000 panel - Serum or Plasma 2020-04-26 01:25:00 Test Item Value Reference Range Interpretation Comments Glucose [Mass/volume] in Serum or 178 mg/dL 74-106 H Plasma (test code = 2345-7) Urea nitrogen [Mass/volume] in 15 mg/dL 6-20 Serum or Plasma (test code = 3094-0) osmolality calculated,serum (test 285 mOsm/kg 280-300 code = osmolality calculated,serum) creatinine (test code = 0.8 mg/dL 0.50-0.90 creatinine) glomerular filtration rate (test >60.00 code = glomerular filtration rate) Urea nitrogen/Creatinine [Mass 18.8 12-20 Ratio] in Serum or Plasma (test code = 3097-3) sodium level (test code = sodium 140 mmol/L 135-145 level) potassium level (test code = 3.6 mmol/L 3.5-5.2 potassium level) chloride level (test code = 100 mmol/L 98-108 chloride level) CO2 (test code = CO2) 26 mmol/L 21-32 anion gap (test code = anion gap) 17.6 mEq/L 12-20 calcium level (test code = 10.3 mg/dL 8.6-10.0 H calcium level) total protein (test code = total 8.7 g/dL 6.6-8.7 protein) albumin (test code = albumin) 4.4 g/dL 3.5-5.2 globulin (test code = globulin) 4.3 gm/dL A/G ratio (test code = A/G ratio) 1.0 >1.0 bilirubin,total (test code = 0.6 mg/dL 0.0-1.2 bilirubin,total) AST/SGOT (test code = AST/SGOT) 142 U/L 15-32 Alanine aminotransferase 149 U/L 0-33 H [Enzymatic activity/volume] in Serum or Plasma (test code = 1742-6) Alkaline phosphatase [Enzymatic 125 U/L 35-105 H activity/volume] in Serum or Plasma (test code = 6768-6) [facility] CenterD-Lactate [Moles/volume] in Serum or [id number] 01:25:00 Test Item Value Reference Range Interpretation Comments LDH (test code = LDH) 287 U/L 135-214 H [facility] CenterCreatine kinase [Enzymatic activity/volume] in Serum or [id number] 01:25:00 Test Item Value Reference Range Interpretation Comments creatine kinase (test code = creatine 148 U/L 20-180 kinase) [facility] Differential panel - [id number] 01:25:00 Test Item Value Reference Range Interpretation Comments white blood count (test code = 11.6 K/uL 4.0-11.5 white blood count) red blood count (test code = red 5.65 M/uL 3.80-5.20 H blood count) hemoglobin (test code = 11.9 g/dL 10.5-15.7 hemoglobin) hematocrit (test code = 39.3 % 34.0-50.0 hematocrit) MCV [Entitic volume] (test code = 69.6 fL 86-100 L 87376-3) mean corpuscular hemoglobin (test 21.1 pg 26.2-33.4 L code = mean corpuscular hemoglobin) mean corpuscular HGB conc (test 30.3 g/dL 30-34 code = mean corpuscular HGB conc) red cell distribution width (test 17.2 % 12.0-15.5 H code = red cell distribution width) platelet count (test code = 429 K/uL 165-450 platelet count) mean platelet volume (test code = 10.7 fL 9.4-12.6 mean platelet volume) Segmented neutrophils/100 70.2 % 44.4-80.1 leukocytes in Blood (test code = 75683-9) Immature granulocytes [#/volume] 0.0 K/uL 0.0-0.03 in Blood (test code = 22582-7) lymphocyte% (test code = 21.8 % 10.0-50.0 lymphocyte%) mono % (test code = mono %) 5.1 % 3.6-12.0 eos % (test code = eos %) 2.3 % 0.0-5.4 Basophils/100 leukocytes in 0.3 % 0.1-1.2 Unspecified specimen (test code = 07753-0) Band form neutrophils [#/volume] 8.11 K/uL 1.56-6.13 H in Blood (test code = 07379-0) Lymphocytes [#/volume] in 2.5 K/uL 1.18-3.74 Unspecified specimen by Automated count (test code = 69642-1) mono # (test code = mono #) 0.59 K/uL 0.24-0.86 eos # (test code = eos #) 0.27 K/uL 0.04-0.36 basophil # (test code = basophil 0.03 K/uL 0.01-0.08 #) NRBC% (test code = NRBC%) 0 /100 WBC 0-0.2 NRBC# (test code = NRBC#) 0 K/uL [facility] CenterDifferent[facility], method unspecified - [id number] 01:25:00 NeutrophilsBandLymphocyteMonocyteEosinophilMetamyelocyteMyelocyteNucleated Red Blood CellPlatelet Est imatePolychromasiaHypochromasiaPoikilocytosisAnisocytosisMicrocytosisTarget CellsTear Drop CellsOvalocytesToxic GranulationToxic VacuolationGiant Platelets [facility] CenterTroponin I.cardiac [Mass/volume] in [id number] 01:25:00 Test Item Value Reference Range Interpretation Comments cardiac troponin I (test code = cardiac <0.30 0.0-0.5 troponin I) [facility] CenterCreatine kinase.MB [Mass/volume] in Serum or Plasma 2020-04-26 01:25:00 Test Item Value Reference Range Interpretation Comments Creatine kinase.MB [Mass/volume] in 1.1 NG/mL 0.0-3.6 Serum or Plasma by Immunoassay (test code = 28444-3) [facility] CenterComprehensive [facility] 2000 panel - Serum or Plasma 2020-04-26 01:25:00 Test Item Value Reference Range Interpretation Comments Glucose [Mass/volume] in Serum or 178 mg/dL 74-106 H Plasma (test code = 2345-7) Urea nitrogen [Mass/volume] in 15 mg/dL 6-20 Serum or Plasma (test code = 3094-0) osmolality calculated,serum (test 285 mOsm/kg 280-300 code = osmolality calculated,serum) creatinine (test code = 0.8 mg/dL 0.50-0.90 creatinine) glomerular filtration rate (test >60.00 code = glomerular filtration rate) Urea nitrogen/Creatinine [Mass 18.8 12-20 Ratio] in Serum or Plasma (test code = 3097-3) sodium level (test code = sodium 140 mmol/L 135-145 level) potassium level (test code = 3.6 mmol/L 3.5-5.2 potassium level) chloride level (test code = 100 mmol/L 98-108 chloride level) CO2 (test code = CO2) 26 mmol/L 21-32 anion gap (test code = anion gap) 17.6 mEq/L 12-20 calcium level (test code = 10.3 mg/dL 8.6-10.0 H calcium level) total protein (test code = total 8.7 g/dL 6.6-8.7 protein) albumin (test code = albumin) 4.4 g/dL 3.5-5.2 globulin (test code = globulin) 4.3 gm/dL A/G ratio (test code = A/G ratio) 1.0 >1.0 bilirubin,total (test code = 0.6 mg/dL 0.0-1.2 bilirubin,total) AST/SGOT (test code = AST/SGOT) 142 U/L 15-32 Alanine aminotransferase 149 U/L 0-33 H [Enzymatic activity/volume] in Serum or Plasma (test code = 1742-6) Alkaline phosphatase [Enzymatic 125 U/L 35-105 H activity/volume] in Serum or Plasma (test code = 6768-6) [facility] CenterD-Lactate [Moles/volume] in Serum or [id number] 01:25:00 Test Item Value Reference Range Interpretation Comments LDH (test code = LDH) 287 U/L 135-214 H [facility] CenterCreatine kinase [Enzymatic activity/volume] in Serum or [id number] 01:25:00 Test Item Value Reference Range Interpretation Comments creatine kinase (test code = creatine 148 U/L 20-180 kinase) [facility] Differential panel - [id number] 01:25:00 Test Item Value Reference Range Interpretation Comments white blood count (test code = 11.6 K/uL 4.0-11.5 white blood count) red blood count (test code = red 5.65 M/uL 3.80-5.20 H blood count) hemoglobin (test code = 11.9 g/dL 10.5-15.7 hemoglobin) hematocrit (test code = 39.3 % 34.0-50.0 hematocrit) MCV [Entitic volume] (test code = 69.6 fL 86-100 L 20878-3) mean corpuscular hemoglobin (test 21.1 pg 26.2-33.4 L code = mean corpuscular hemoglobin) mean corpuscular HGB conc (test 30.3 g/dL 30-34 code = mean corpuscular HGB conc) red cell distribution width (test 17.2 % 12.0-15.5 H code = red cell distribution width) platelet count (test code = 429 K/uL 165-450 platelet count) mean platelet volume (test code = 10.7 fL 9.4-12.6 mean platelet volume) Segmented neutrophils/100 70.2 % 44.4-80.1 leukocytes in Blood (test code = 13811-3) Immature granulocytes [#/volume] 0.0 K/uL 0.0-0.03 in Blood (test code = 67242-2) lymphocyte% (test code = 21.8 % 10.0-50.0 lymphocyte%) mono % (test code = mono %) 5.1 % 3.6-12.0 eos % (test code = eos %) 2.3 % 0.0-5.4 Basophils/100 leukocytes in 0.3 % 0.1-1.2 Unspecified specimen (test code = 44658-2) Band form neutrophils [#/volume] 8.11 K/uL 1.56-6.13 H in Blood (test code = 08746-1) Lymphocytes [#/volume] in 2.5 K/uL 1.18-3.74 Unspecified specimen by Automated count (test code = 75325-1) mono # (test code = mono #) 0.59 K/uL 0.24-0.86 eos # (test code = eos #) 0.27 K/uL 0.04-0.36 basophil # (test code = basophil 0.03 K/uL 0.01-0.08 #) NRBC% (test code = NRBC%) 0 /100 WBC 0-0.2 NRBC# (test code = NRBC#) 0 K/uL [facility] CenterDifferential panel, method unspecified - [id number] 01:25:00 NeutrophilsBandLymphocyteMonocyteEosinophilMetamyelocyteMyelocyteNucleated Red Blood CellPlatelet Est imatePolychromasiaHypochromasiaPoikilocytosisAnisocytosisMicrocytosisTarget CellsTear Drop CellsOvalocytesToxic GranulationToxic VacuolationGiant Platelets [facility] CenterTroponin I.cardiac [Mass/volume] in [id number] 01:25:00 Test Item Value Reference Range Interpretation Comments cardiac troponin I (test code = cardiac <0.30 0.0-0.5 troponin I) [facility] CenterCreatine kinase.MB [Mass/volume] in Serum or Plasma 2020-04-26 01:25:00 Test Item Value Reference Range Interpretation Comments Creatine kinase.MB [Mass/volume] in 1.1 NG/mL 0.0-3.6 Serum or Plasma by Immunoassay (test code = 56920-9) [facility] CenterCom[facility] 2000 panel - Serum or Plasma 2020-04-26 01:25:00 Test Item Value Reference Range Interpretation Comments Glucose [Mass/volume] in Serum or 178 mg/dL 74-106 H Plasma (test code = 2345-7) Urea nitrogen [Mass/volume] in 15 mg/dL 6-20 Serum or Plasma (test code = 3094-0) osmolality calculated,serum (test 285 mOsm/kg 280-300 code = osmolality calculated,serum) creatinine (test code = 0.8 mg/dL 0.50-0.90 creatinine) glomerular filtration rate (test >60.00 code = glomerular filtration rate) Urea nitrogen/Creatinine [Mass 18.8 12-20 Ratio] in Serum or Plasma (test code = 3097-3) sodium level (test code = sodium 140 mmol/L 135-145 level) potassium level (test code = 3.6 mmol/L 3.5-5.2 potassium level) chloride level (test code = 100 mmol/L 98-108 chloride level) CO2 (test code = CO2) 26 mmol/L 21-32 anion gap (test code = anion gap) 17.6 mEq/L 12-20 calcium level (test code = 10.3 mg/dL 8.6-10.0 H calcium level) total protein (test code = total 8.7 g/dL 6.6-8.7 protein) albumin (test code = albumin) 4.4 g/dL 3.5-5.2 globulin (test code = globulin) 4.3 gm/dL A/G ratio (test code = A/G ratio) 1.0 >1.0 bilirubin,total (test code = 0.6 mg/dL 0.0-1.2 bilirubin,total) AST/SGOT (test code = AST/SGOT) 142 U/L 15-32 Alanine aminotransferase 149 U/L 0-33 H [Enzymatic activity/volume] in Serum or Plasma (test code = 1742-6) Alkaline phosphatase [Enzymatic 125 U/L 35-105 H activity/volume] in Serum or Plasma (test code = 6768-6) [facility] CenterD[facility] [Moles/volume] in Serum or [id number] 01:25:00 Test Item Value Reference Range Interpretation Comments LDH (test code = LDH) 287 U/L 135-214 H [facility] CenterCreatine kinase [Enzymatic activity/volume] in Serum or [id number] 01:25:00 Test Item Value Reference Range Interpretation Comments creatine kinase (test code = creatine 148 U/L 20-180 kinase) [facility]
[2022-01-13 01:11] LABS: Absolute Lymphocytes (CBC) 2.2 K/uL (0.7-4.9); Hematocrit 32.5 % (36.0-45.0); Lymphocytes % 30.2 % (15.3-44.8); MCV 71.2 fL (80-100); MPV 8.7 fL (7.6-11.3); RBC Red Blood Cell Count 4.56 M/uL (3.86-4.86)
[2022-01-13] MEDS ORDERED: HYDROCODONE/APAP 10/325 TAB ONE (01:12)
[2022-01-13] MEDS ORDERED: LIDOCAINE VISCOUS 2% SOLN 15 ML UDC ONE (01:16)
[2022-01-13 01:24] LABS: Potassium 3.6 mmol/L (3.5-5.1)
--- NOTE | 2022-01-13 03:30 | ER ---
Nurse's Notes [facility] Name: Dionne Bedoya Age: 31 yrs Sex: Female : 1990 Arrival Date: 01/13/2022 Time: 00:15 Bed 7 Private MD: Diagnosis: Enlarged lymph nodes, unspecified-Left neck Presentation: 01/13 00:40 Chief complaint: Patient states: left side jaw pain that is causing her to have high tw5 blood pressure. Coronavirus screen: Vaccine status: Patient reports receiving the 2nd dose of the covid vaccine. Moderna. Ebola Screen: Patient negative for fever greater than or equal to 101.5 degrees Fahrenheit, and additional compatible Ebola Virus Disease symptoms Patient denies exposure to infectious person. Patient denies travel to an Ebola-affected area in the 21 days before illness onset. Initial Sepsis Screen: Does the patient meet any 2 criteria? No. Patient's initial sepsis screen is negative. Does the patient have a suspected source of infection? No. Patient's initial sepsis screen is negative. Risk Assessment: Do you want to hurt yourself or someone else? Patient reports no desire to harm self or others. Onset of symptoms was January 10, 2022. 00:40 Acuity: ESMER 3 tw5 00:40 Method Of Arrival: Ambulatory tw5 Triage Assessment: 00:41 General: Appears obese, well groomed, Behavior is calm, cooperative, appropriate for tw5 age. EENT: Reports pain in left ear. DIRECTOR CLINICAL PHARMACOLOGY: 00:41 LMP 01/11/2022 tw5 Historical: - Allergies: 00:41 Amoxicillin; tw5 00:41 PENICILLINS; tw5 - Home Meds: 00:41 meloxicam oral [Active]; losartan 100 mg oral tab 1 tab once daily [Active]; clonidine tw5 HCl 0.1 mg Oral tab 1 tab once daily [Active]; - PMHx: 00:41 Hypertension; urosepsis; Asthma; tw5 - Immunization history:: Flu vaccine is not up to date. - Social history:: Smoking status: Patient denies any tobacco usage or history of. Screenin:44 Abuse screen: Denies threats or abuse. Denies injuries from another. Nutritional tw5 screening: No deficits noted. Tuberculosis screening: No symptoms or risk factors identified. Fall Risk None identified. Assessment: 00:37 General: Reports "I have been having jaw pain for a while, I have seen two different [facility] dentist. They said there isn't an infection, but they said that there are some sort of stones. I got some medication and it helped for three days but now the pain is back." Patient states she was given antibiotics and steriods. Pain: Complains of pain in left jaw Pain currently is 10 out of 10 on a pain scale. Neuro: Level of Consciousness is awake, alert, obeys commands, Oriented to person, place, time, situation. Respiratory: Airway is patent is compromised Trachea midline Respiratory effort is even. 03:08 Reassessment: Patient states feeling better. Patient states symptoms have improved. 5 General: Reports "The pains comes and goes.". Vital Signs: 00:36 BP 182 / 109; Pulse 82; Resp 18; Temp 98.5(O); Pulse Ox 100% on R/A; Weight 104.78 kg; [facility] Height 5 ft. 4 in. (162.56 cm); Pain 10/10; 03:08 BP 147 / 91; Pulse 85; Resp 18; Pulse Ox 100% on R/A; tw5 03:08 Pain 7/10; tw5 00:36 Body Mass Index 39.65 (104.78 kg, 162.56 cm) [facility] ED Course: 00:15 Patient arrived in ED. ja2 00:16 Arvin Mina MD is Attending Physician. kdr 00:36 Dori Dacosta is Primary Nurse. tw5 00:37 Patient has correct armband on for positive identification. Bed in low position. Call [facility] light in reach. Side rails up X 1. Warm blanket given. monitor car operator on. Pulse ox on. NIBP on. 00:41 Triage completed. tw5 00:41 Arm band placed on. tw5 00:49 Inserted saline lock: 22 gauge in left forearm, using aseptic technique. ll3 02:07 CT Soft Tissue Neck W/contr In Process Unspecified. EDMS 03:09 Door closed. Moved to private room. Warm blanket given. tw5 03:43 No provider procedures requiring assistance completed. IV discontinued, intact, ll3 bleeding controlled, No redness/swelling at site. Pressure dressing applied. Administered Medications: 01:04 Drug: [place] (HYDROcodone-acetaminophen) 10 mg-325 mg 1 tabs Route: PO; ll3 03:08 Follow up: Pain 11/25 Adult; Response: No adverse reaction; Pain is decreased; RASS: tw5 Alert and Calm (0) 01:09 Drug: Viscous Lidocaine Liquid (4 %) 10 ml Route: Mucous Membrane; ll3 03:32 Follow up: Response: No adverse reaction ll3 Medication: 03:43 VIS not applicable for this client. ll3 Outcome: 03:29 Discharge ordered by . kdr 03:43 Discharged to home ambulatory. ll3 03:43 Condition: stable 03:43 Discharge instructions given to patient, Instructed on discharge instructions, follow up and referral plans. medication usage, Demonstrated understanding of instructions, follow-up care, medications, Prescriptions given X 4. 03:43 Patient left the ED. ll3 Signatures: Dispatcher [employer] EDArvin Rincon MD MD kdr Martinez, Maria 5 Kasia Soto Tiffany 5 Santi Brady, RN RN 3
--- NOTE | 2022-01-13 03:30 | EDPHYS ---
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 - Social history:: Smoking status: Patient denies any tobacco usage or history of. Vital Signs: 00:36 BP 182 / 109; Pulse 82; Resp 18; Temp 98.5(O); Pulse Ox 100% on R/A; Weight 104.78 kg; 5 Height 5 ft. 4 in. (162.56 cm); Pain 10/10; 03:08 BP 147 / 91; Pulse 85; Resp 18; Pulse Ox 100% on R/A; tw5 03:08 Pain 7/10; tw5 00:36 Body Mass Index 39.65 (104.78 kg, 162.56 cm) [facility] MDM: 03:29 Patient medically screened. kdr 01/13 00:58 Order name: CBC with Diff; Complete Time: 01:41 kdr 01/13 00:58 Order name: Chem 7; Complete Time: 01:41 kdr 01/13 00:58 Order name: CT Soft Tissue Neck W/contr kdr Administered Medications: 01:04 Drug: [place] (HYDROcodone-acetaminophen) 10 mg-325 mg 1 tabs Route: PO; ll3 03:08 Follow up: Pain 7/10 Adult; Response: No adverse reaction; Pain is decreased; RASS: tw5 Alert and Calm (0) 01:09 Drug: Viscous Lidocaine Liquid (4 %) 10 ml Route: Mucous Membrane; ll3 03:32 Follow up: Response: No adverse reaction ll3 Disposition Summary: 01/13/22 03:29 Discharge Ordered Location: Home kdr Problem: new kdr Symptoms: have improved kdr Condition: Stable kdr Diagnosis - Enlarged lymph nodes, unspecified - Left neck kdr Followup: kdr - With: Private Physician - When: 2 - 3 days - Reason: If symptoms return, Further diagnostic work-up, Recheck today's complaints, Continuance of care, Re-evaluation by your physician Discharge Instructions: - Discharge Summary Sheet kdr - Lymphadenopathy kdr Forms: - Medication Reconciliation Form kdr - Thank You Letter kdr - Antibiotic Education kdr - Prescription Opioid Use kdr Prescriptions: - Flagyl 500 mg Oral Tablet - take 1 tablet by ORAL route every 8 hours for 10 days; 30 tablet; Refills: 0, kdr Product Selection Permitted - Doxycycline Hyclate 100 mg Oral Tablet - take 1 tablet by ORAL route once daily; 10 tablet; Refills: 0, Product kdr Selection Permitted - Tylenol-Codeine #3 300 mg-30 mg Oral - take 1 tablet by ORAL route every 4-6 hours As needed; 6 tablet; Refills: 0, kdr Product Selection Permitted - Zofran 4 mg Oral Tablet - take 1 tablet by ORAL route every 4-6 hours As needed; 12 tablet; Refills: 0, kdr Product Selection Permitted Signatures: Dispatcher [employer] EDMS Arvin Mina MD MD kdr Dori Dacosta tw5 Santi Brady RN RN ll3 Ekta Mcclure PA PA sb3
[2022-01-13 04:44] VITALS: TEMP 98.5; O2SAT 100
[2022-01-13 04:47] VITALS: BP 147/91
--- NOTE | 2022-01-14 13:16 | RAD REPORT ---
EXAM DESCRIPTION: CT - Soft Tissue Neck W/Contr - 01/13/2022 6:49 am CLINICAL HISTORY: Pain TECHNIQUE: Axial computed tomography images of the neck with intravenous contrast. Sagittal and co tamara reformatted images were created and reviewed. This CT exam was performed using one or more of the following dose reduction techniques: automated exposure control, adjustment of the mA and/or k V according to patient size, and/or use of iterative reconstruction technique. COMPARISON: No relevant prior studies available. FINDINGS: Oropharynx: Unremarkable. No significant tonsillar enlargement. No peritonsillar abs cess. Hypopharynx: Unremarkable. Larynx: Unremarkable. Normal epiglottis. Trachea: Unremarkable. Retropharyngeal space: Unremarkable. Submandibular/parotid glands: Unremarkable. Glands are normal in size. Thyroid: Unremarkable. No enlarged or calcified nodules. Bones/joints: No acute fracture. Soft tissues: Unremarkable. Vasculature: No acute findings. Lymph nodes: Unremarkable. No lymphadenopathy. Lung apices: Unremarkable as visualized. IMPRESSION: No acute abnormality identified. Electronically signed by: Andi Villatoro MD 01/13/2022 2:43 AM CDT Due to temporary technical issues with the PACS/Fluency reporting system, reports are being signed by the in house radiologists without review as a courtesy to insure prompt reporting. The interpreting radiologist is fully responsible for the content of the report.
== END 2022-01-13 03:43 | disposition home or self-care (01) ==
LOC: ER 00:12
DX: R59.0 Localized enlarged lymph nodes (principal); I10 Essential (primary) hypertension; J45.909 Unspecified asthma, uncomplicated; Z88.0 Allergy status to penicillin; Z88.1 Allergy status to other antibiotic agents
CPT/HCPCS: 85025; 80048; 36415; 70491; Q9967; 99284

== ENCOUNTER 2023-11-01 21:09 | Emergency (ER) | payer BC ==
[2023-11-01] MEDS ORDERED: NA CHLORIDE 0.9% 1,000 ML ONE (22:03)
[2023-11-01] MEDS ORDERED: ONDANSETRON 4 MG/2 ML VIAL ONE (22:03)
[2023-11-01] MEDS ORDERED: KETOROLAC 30 MG/ML INJ ONE (22:03)
--- NOTE | 2023-11-01 22:24 | RAD REPORT ---
EXAM DESCRIPTION: RAD - Shoulder Left 2 View - 11/01/2023 10:05 pm CLINICAL HISTORY: Left shoulder pain status post fall FINDINGS: No fracture or dislocation is seen.
[2023-11-01 22:31] LABS: Absolute Eosinophils 0.2 K/uL (0-0.5); Absolute Lymphocytes (CBC) 2.7 K/uL (0.7-4.9); Absolute Monocytes 0.5 K/uL (0.1-1.3); Absolute Neutrophil 5.6 K/uL (1.8-8.0); Basophils % 0.5 % (0-1.3); Eosinophils % 2.1 % (0-4.4); Hematocrit 32.8 % (36.0-45.0); Hemoglobin 10.8 g/dL (12.0-15.0); Lymphocytes % 30.1 % (15.3-44.8); MCH 23.5 pg (27.0-35.0); MCHC 32.8 g/dL (32.0-36.0); MCV 71.6 fL (80-100); MPV 9.2 fL (7.6-11.3); Monocytes % 5.2 % (3.3-12.3); Neutrophils % 62.1 % (41.7-73.7); Nucleated Red Blood Cells % 0.2 % (0-0); Platelets 313 thou/uL (152-406); RBC Red Blood Cell Count 4.59 M/uL (3.86-4.86); Red Cell Distribution Width 17.5 % (12.1-15.2)
[2023-11-01 22:35] LABS: Specific Gravity 1.012 (1.005-1.030); Urine Bilirubin NEGATIVE (Negative); Urine Blood Negative (Negative); Urine Clarity Clear (Clear); Urine Color Light-Yellow (Yellow); Urine Glucose NEGATIVE (Negative); Urine Ketones NEGATIVE (Negative); Urine Microscopic Reflex YN NO UMIC; Urine Nitrite NEGATIVE (Negative); Urine Protein NEGATIVE (Negative); Urine Urobilinogen Normal (Normal)
[2023-11-01 22:48] LABS: Albumin 3.4 g/dL (3.4-5.0); Albumin/Globulin Ratio 0.7 (1.1-1.8); Anion Gap 7.5 mEq/L (5.0-15.0); Bilirubin Total 0.3 mg/dL (0.2-1.0); Globulin 4.8 g/dL (2.3-3.5); Potassium 3.5 mEq/L (3.5-5.1); Protein, Total 8.2 g/dL (6.4-8.2)
--- NOTE | 2023-11-02 00:07 | EDPHYS ---
Physician Documentation [facility] Name: Dionne Bedoya Age: 33 yrs Sex: Female : 1990 Arrival Date: 11/01/2023 Time: 21:09 Bed 7 Private MD: ED Physician Chinedu Su HPI: 10/31 21:23 This 33 yrs old Black Female presents to ER via Unassigned with complaints of Abdominal kb Pain, High Blood Pressure. 21:23 Pt is a 33 year old female who presents for RLQ pain for 2 days, left shoulder pain kb since last night and states her blood pressure was high 2 hours ago. Denies vomiting, diarrhea, fever. Reports intermittent nausea. . 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 - Infectious Disease History:: Denies. - Social history:: Smoking status: Patient denies any tobacco usage or history of. Patient/guardian denies using alcohol, street drugs. ROS: 21:23 Constitutional: As per HPI kb Exam: 21:23 Constitutional: This is a well developed, well nourished patient who is awake, alert, kb and in no acute distress. Head/Face: Normocephalic, atraumatic. ENT: Moist Mucous membranes Cardiovascular: Regular rate Respiratory: Respirations even and unlabored. No increased work of breathing. Talking in full sentences Skin: Warm, dry with normal turgor. Normal color. Neuro: Awake and alert, GCS 15, oriented to person, place, time, and situation. Moves all extremities. Normal gait. 21:23 Abdomen/GI: Inspection: obese Bowel sounds: normal, Palpation: soft, in all quadrants, moderate abdominal tenderness, in the right lower quadrant, 21:23 Musculoskeletal/extremity: Extremities: grossly normal except: noted in the anterior aspect of left shoulder: decreased ROM, pain, ROM: limited active range of motion due to pain, Circulation is intact in all extremities. Sensation intact. Vital Signs: 21:38 BP 154 / 110; Pulse 87; Resp 17 S; Temp 98.6(O); Pulse Ox 98% on R/A; Weight 109.32 kg lg3 (R); Height 5 ft. 4 in. (R); 22:31 BP 136 / 100; Pulse 73; Pulse Ox 100% on R/A; Pain 7/10; tm6 23:17 BP 132 / 77; Pulse 79; Pulse Ox 100% on R/A; Pain 3/10; tm6 11/01 00:08 BP 128 / 83; Pulse 76; Resp 19; Temp 98.6(O); Pulse Ox 99% on R/A; Pain 0/10; tm6 10/31 21:38 Body Mass Index 41.37 (109.32 kg, 162.56 cm) lg3 22:31 Pain Scale: Adult tm6 23:17 Pain Scale: Adult tm6 11/01 00:08 Pain Scale: Adult tm6 MDM: 10/31 21:12 Patient medically screened. kb 21:27 Data reviewed: vital signs, nurses notes. kb 11/01 00:06 Differential diagnosis: appendicitis, urinary tract infection, ovarian cyst. I kb considered the following discharge prescriptions or medication management in the emergency department I discussed and recommended Over The Counter medications, Antibiotics: At this time antibiotics are not recommended. Counseling: I had a detailed discussion with the patient and/or guardian regarding the historical points, exam findings, and any diagnostic results supporting the discharge/admit diagnosis, lab results, radiology results, the need for outpatient follow up, a family practitioner, to return to the emergency department if symptoms worsen or persist or if there are any questions or concerns that arise at home. 10/31 21:27 Order name: CBC with Diff; Complete Time: 22:40 kb 10/31 21:27 Order name: CMP; Complete Time: 22:49 kb 10/31 20:27 Order name: Lipase; Complete Time: 22:49 kb 10/31 20:27 Order name: Test, Urine; Complete Time: 22:40 kb 10/31 21:27 Order name: Urinalysis w/ reflexes; Complete Time: 22:40 kb 10/31 21:27 Order name: CT Abd/Pelvis - IV Contrast Only kb 10/31 21:28 Order name: Shoulder Left (2 View) XRAY; Complete Time: 22:30 kb 10/31 21:27 Order name: IV Saline Lock; Complete Time: 22:28 kb 10/31 21:27 Order name: Labs collected and sent; Complete Time: :28 kb Administered Medications: 10/31 22:28 Drug: NS 0.9% IV 1000 ml IV at 1 bolus Per protocol; 1000 mL bolus Route: IV; Rate: 1 tm6 bolus; Site: right antecubital; 11/01 00:09 Follow up: IV Status: Completed infusion; IV Intake: 700ml tm6 10/31 22:28 Drug: TORadol - Ketorolac IVP 15 mg IVP once Route: IVP; Site: right antecubital; tm6 22:28 Drug: Ondansetron IVP 4 mg IVP once; over 2 minutes Route: IVP; Site: right antecubital;tm6 Disposition Summary: 11/02/23 00:07 Discharge Ordered Notes: Location: Home kb Condition: Stable kb Diagnosis - Lower abdominal pain, unspecified kb - Pain in left shoulder kb - Essential (primary) hypertension kb Followup: kb - With: Emergency Department - When: As needed - Reason: Worsening of condition Followup: kb - With: Private Physician - When: 2 - 3 days - Reason: Recheck today's complaints, Continuance of care, Re-evaluation by your physician Discharge Instructions: - Discharge Summary Sheet kb - Shoulder Pain, [id number] kb - Abdominal Pain, Adult, [id number] kb - Hypertension, Adult, [id number] kb Forms: - Medication Reconciliation Form kb - Antibiotic Education kb - Prescription Opioid Use kb - Patient Portal Instructions kb - Leadership Thank You Letter kb Signatures: Dispatcher [employer] Muriel Alva FNP-C FNP-Krystyna Minor, RN RN lg3 Mario Chou RN RN tm6 Corrections: (The following items were deleted from the chart) 21: 21:27 CBC+H.LAB.BRZ ordered. EDMS EDMS 21:27 COMPREHENSIVE METABOLIC PANEL+C.LAB.BRZ ordered. EDMS EDMS 21: LIPASE+C.LAB.BRZ ordered. EDMS EDMS 21: Test, Urine+UC.LAB.BRZ ordered. EDMS EDMS : Urinalysis+U.LAB.BRZ ordered. EDMS EDMS : 21: Abdomen Pelvis W Con+CT.RAD.BRZ ordered. EDMS EDMS
--- NOTE | 2023-11-02 00:07 | ER ---
Nurse's Notes [facility] Name: Dionne Bedoya Age: 33 yrs Sex: Female : 1990 Arrival Date: 11/01/2023 Time: 21:09 Bed 7 Private MD: Diagnosis: Lower abdominal pain, unspecified;Pain in left shoulder;Essential (primary) hypertension Presentation: 10/31 21:38 Chief complaint: Patient states: right lower abdominal pain X1 week with nausea. left lg3 shoulder pain when raising arm. high BP readings beginning this morning. Coronavirus screen: Client denies travel out of the [place] in the last 14 days. At this time, the client does not indicate any symptoms associated with coronavirus-19. Ebola Screen: Patient negative for fever greater than or equal to 101.5 degrees Fahrenheit, and additional compatible Ebola Virus Disease symptoms. Initial Sepsis Screen: Does the patient meet any 2 criteria? No. Patient's initial sepsis screen is negative. Does the patient have a suspected source of infection? No. Patient's initial sepsis screen is negative. Risk Assessment: Do you want to hurt yourself or someone else? Patient reports no desire to harm self or others. Onset of symptoms is unknown. 21:38 Method Of Arrival: Ambulatory lg3 21:38 Acuity: ESMER 3 lg3 Triage Assessment: 21:39 General: Appears in no apparent distress. comfortable, Behavior is calm, cooperative. lg3 Pain: Complains of pain in abdomen and left arm. EENT: No deficits noted. No signs and/or symptoms were reported regarding the EENT system. Neuro: No deficits noted. Roque Agitation-Sedation Scale (RASS): 0 - Alert and Calm Level of Consciousness is awake, alert, obeys commands, Oriented to person, place, time, situation. Cardiovascular: No deficits noted. Capillary refill < 3 seconds Clubbing of nail beds is absent JVD is absent Patient's skin is warm and dry. Respiratory: No deficits noted. Airway is patent Respiratory effort is even, unlabored, Respiratory pattern is regular, symmetrical. GI: Abdomen is round non-distended, obese, Reports lower abdominal pain, nausea. : No signs and/or symptoms were reported regarding the genitourinary system. Derm: No deficits noted. No signs and/or symptoms reported regarding the dermatologic system. Skin is intact, is healthy with good turgor, Skin is dry, Skin is normal, Skin temperature is warm. Musculoskeletal: No deficits noted. Circulation, motion, and sensation intact. Range of motion: intact in all extremities. 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 - Infectious Disease History:: Denies. - Social history:: Smoking status: Patient denies any tobacco usage or history of. Patient/guardian denies using alcohol, street drugs. Screenin:29 [facility] ED Fall Risk Assessment (Adult) History of falling in the last 3 months, tm6 including since admission Yes- single mechanical fall (1 pt) Confusion or Disorientation No (0 pts) Intoxicated or Sedated No (0 pts) Impaired Gait No (0 pts) Mobility Assist Device Used No (0 pt) Altered Elimination No (0 pt) Score/Fall Risk Level 0 - 2 = Low Risk Oriented to surroundings, Maintained a safe environment, Educated pt \T\ family on fall prevention, incl call for assistance when getting out of bed. Abuse screen: Denies threats or abuse. Denies injuries from another. Nutritional screening: No deficits noted. Tuberculosis screening: No symptoms or risk factors identified. Assessment: 22:29 General: Appears uncomfortable, Behavior is calm, cooperative. Pain: Complains of pain tm6 in left arm and right lower quadrant Pain currently is 7 out of 10 on a pain scale. Quality of pain is described as burning, aching. Neuro: Level of Consciousness is awake, alert, obeys commands, Oriented to person, place, time, situation. Cardiovascular: Patient's skin is warm and dry. Respiratory: Airway is patent Respiratory effort is even, unlabored, Respiratory pattern is regular, symmetrical. GI: Abdomen is round Bowel sounds present X 4 quads. Abd is soft and non tender Reports lower abdominal pain, constipation, nausea, vomiting. : No signs and/or symptoms were reported regarding the genitourinary system. EENT: No signs and/or symptoms were reported regarding the EENT system. Derm: No signs and/or symptoms reported regarding the dermatologic system. Musculoskeletal: Reports pain in left arm. 23:17 Reassessment: Patient and/or family updated on plan of care and expected duration. Pain tm6 level reassessed. Patient is alert, oriented x 3, equal unlabored respirations, skin warm/dry/pink. Vital Signs: 21:38 BP 154 / 110; Pulse 87; Resp 17 S; Temp 98.6(O); Pulse Ox 98% on R/A; Weight 109.32 kg lg3 (R); Height 5 ft. 4 in. (R); 22:31 BP 136 / 100; Pulse 73; Pulse Ox 100% on R/A; Pain 7/10; tm6 23:17 BP 132 / 77; Pulse 79; Pulse Ox 100% on R/A; Pain 3/10; tm6 11/01 00:08 BP 128 / 83; Pulse 76; Resp 19; Temp 98.6(O); Pulse Ox 99% on R/A; Pain 0/10; tm6 10/31 21:38 Body Mass Index 41.37 (109.32 kg, 162.56 cm) lg3 22:31 Pain Scale: Adult tm6 23:17 Pain Scale: Adult tm6 11/01 00:08 Pain Scale: Adult tm6 ED Course: 10/31 21:11 Patient arrived in ED. jj6 21:12 [facility]el [facility]C [facility] kb 21:12 Chinedu Su MD is Attending Physician. kb 21:39 Triage completed. lg3 21:39 Arm band placed on right wrist. lg3 22:07 Shoulder Left (2 View) XRAY In Process Unspecified. EDMS 22:28 Inserted saline lock: 20 gauge in right antecubital area, using aseptic technique. tm6 22:28 CBC with Diff Sent. tm6 22:28 CMP Sent. tm6 22:28 Lipase Sent. tm6 22:28 Test, Urine Sent. tm6 22:28 Urinalysis w/ reflexes Sent. tm6 22:29 Patient has correct armband on for positive identification. Bed in low position. Call tm6 light in reach. Side rails up X 1. Provided Education on: use of call rivas. Client placed on continuous cardiac and pulse oximetry monitoring. NIBP monitoring applied. Pulse ox on. NIBP on. Door closed. Noise minimized. Lights dimmed. Pillow given. 23:15 CT Abd/Pelvis - IV Contrast Only In Process Unspecified. EDMS 11/01 00:09 No provider procedures requiring assistance completed. IV discontinued, intact, tm6 bleeding controlled, No redness/swelling at site. Pressure dressing applied. Administered Medications: 10/31 22:28 Drug: NS 0.9% IV 1000 ml IV at 1 bolus Per protocol; 1000 mL bolus Route: IV; Rate: 1 tm6 bolus; Site: right antecubital; 11/01 00:09 Follow up: IV Status: Completed infusion; IV Intake: 700ml tm6 10/31 22:28 Drug: TORadol - Ketorolac IVP 15 mg IVP once Route: IVP; Site: right antecubital; tm6 22:28 Drug: Ondansetron IVP 4 mg IVP once; over 2 minutes Route: IVP; Site: right antecubital;tm6 Medication: 22:29 VIS not applicable for this client. tm6 Intake: 11/01 00:09 IV: 700ml; Total: 700ml. tm6 Outcome: 00:07 Discharge ordered by . zahra 00:09 Discharged to home ambulatory, tm6 00:09 Condition: stable 00:15 Discharge instructions given to patient, Instructed on discharge instructions, follow tm6 up and referral plans. Demonstrated understanding of instructions, follow-up care, 00:15 Patient left the ED. tm6 Signatures: Dispatcher [employer] EDNM Muriel Patel, LICENSED CHEMICAL SPRAY TECHNICIAN-Angelic KOO-Krystyna Minor, RN RN lg3 Cara Blount Mario Chou RN RN tm6
[2023-11-02 00:39] VITALS: BP 128/83; TEMP 98.6; O2SAT 99
--- NOTE | 2023-11-02 17:58 | RAD REPORT ---
EXAM DESCRIPTION: Abdomen Pelvis W Contrast CLINICAL HISTORY: ABD PAIN COMPARISON: 01/26/2017 TECHNIQUE: CT of the abdomen and pelvis performed following IV administration of iodinated contras t. This exam was performed according to our departmental dose-optimization program, which includes au tomated exposure control, adjustment of the mA and/or kV according to patient size and/or use of iter ative reconstruction technique. FINDINGS: Lung Bases: The visualized lung bases are clear. Bones: No acute osseous abnormality identified. Abdomen: Liver: Hepatomegaly with diffusely decreased density. Gallbladder: Prior cholecystectomy. Spleen, Pancreas, and Adrenal Glands: The spleen, pancreas, and adrenal glands are unremarkable. Kidneys: No hydronephrosis or obstructing calculus. Vasculature: The aorta and IVC have normal caliber and position. Retroaortic left renal vein. The por tanesha vein is patent. The proximal visceral and renal arteries are patent. Stomach: The stomach and duodenum have normal course. Other: No free intraperitoneal air. Small amount of free fluid. Tiny fat-containing umbilical her rohith. Pelvis: Bladder: Urinary bladder is well-distended. Bowel: No dilated loops of large or small bowel. Appendix: Normal appendix. Pelvis: Uterus is not enlarged. 2.8 cm left ovarian cyst. No follow-up imaging for the structure. IMPRESSION: 1. Small amount of free pelvic fluid. 2. Hepatomegaly and hepatic steatosis. Electronically signed by: José Luis Reynoso DO 11/01/2023 11:40 PM CDT RP [id number] Due to temporary technical issues with the PACS/Fluency reporting system, reports are being signed by the in house radiologists without review as a courtesy to insure prompt reporting. The interpreting radiologist is fully responsible for the content of the report.
== END 2023-11-02 00:15 | disposition home or self-care (01) ==
LOC: ER 21:09
DX: R10.30 Lower abdominal pain, unspecified (principal); M25.512 Pain in left shoulder; I10 Essential (primary) hypertension; J45.909 Unspecified asthma, uncomplicated; Z79.899 Other long term (current) drug therapy; Z88.0 Allergy status to penicillin
CPT/HCPCS: 96361; 85025; 36415; 81025; 81003; 83690; 80053; 74177; 73030; 96375; 96374; 99284; Q9967; J2405; J7030